=== PATIENT | male | born 1940 | race Caucasian/White ===

== ENCOUNTER 2017-12-21 02:35 | Emergency (ER) | payer MEDICARE ==
[2017-12-21] MEDS ORDERED: ONDANSETRON 4 MG/2 ML VIAL ONE (02:59)
[2017-12-21] MEDS ORDERED: MORPHINE 4 MG/ML SYR ONE (02:59)
[2017-12-21 04:06] LABS: Absolute Lymphocytes (CBC) 1.4 K/uL (0.7-4.9); Absolute Monocytes 0.4 K/uL (0.1-1.3); Absolute Neutrophil 3.4 K/uL (1.8-8.0); Basophils % 0.5 % (0-1.3); Hematocrit 41.5 % (39.6-49.0); Lymphocytes % 26.5 % (15.3-44.8); MCH 29.5 pg (27.0-35.0); MCV 89.3 fL (80-100); MPV 9.3 fL (7.6-11.3); Monocytes % 7.1 % (3.3-12.3); RBC Red Blood Cell Count 4.65 M/uL (4.33-5.43)
[2017-12-21 04:45] LABS: Potassium 4.4 mEq/L (3.6-5.0)
[2017-12-21 04:52] LABS: Albumin 4.3 g/dL (3.2-5.5); Bilirubin Direct 0.1 mg/dL (0-0.2); Bilirubin Total 0.7 mg/dL (0.3-1.2); Protein, Total 6.7 g/dL (6.0-8.3)
[2017-12-21 04:55] LABS: Urine Blood 2+ (NEG); Urine Glucose NEGATIVE (NEG); Urine Protein TRACE (NEG); Urine Specific Gravity >1.030 (1.005-1.030)
--- NOTE | 2017-12-21 05:14 | ER ---
Nurse's Notes [facility] Name: Qamar Campbell Age: 77 yrs Sex: Male : 1940 Arrival Date: 12/21/2017 Time: 02:36 Bed 6 Private MD: Diagnosis: Low back pain;Hematuria Presentation: 12/21 02:32 Presenting complaint: Patient states: Around 1500 pt reports he was working in his shop ea and his right side of his lower back started hurting. Transition of care: patient was not received from another setting of care. Onset of symptoms was December 21, 2017. Care prior to arrival: None. 02:32 Method Of Arrival: EMS: [facility] ea 02:32 Acuity: ELISSA 3 ea Triage Assessment: 02:43 General: Appears uncomfortable, Behavior is calm, cooperative, appropriate for age, pt ea reports he had a prostate biopsy in [place] about three days ago and was told everything was fine. . Pain: Complains of pain in right low back Pain currently is 9 out of 10 on a pain scale. Quality of pain is described as aching, Pain began 1500 yesterday Is continuous. Neuro: Level of Consciousness is awake, alert, obeys commands, Oriented to person, place, time. Cardiovascular: Patient's skin is warm and dry. Respiratory: Airway is patent Respiratory effort is even, unlabored, Respiratory pattern is regular, symmetrical, Breath sounds are clear bilaterally. GI: No signs and/or symptoms were reported involving the gastrointestinal system. : Denies burning with urination, pain. Derm: Skin is pink, warm \T\ dry. Historical: - Allergies: 02:43 No Known Allergies; ea - Home Meds: 02:43 Metformin Oral [Active]; Alprazolam Oral [Active]; Hydrocodone-Acetaminophen Oral ea [Active]; - Immunization history:: Adult Immunizations up to date. - Social history:: Smoking status: Patient/guardian denies using tobacco. Screenin:48 Abuse screen: Denies threats or abuse. Nutritional screening: No deficits noted. ea Tuberculosis screening: No symptoms or risk factors identified. Fall Risk None identified. Assessment: 03:17 Reassessment: Patient and/or family updated on plan of care and expected duration. Pain ea level reassessed. Patient is alert, oriented x 3, equal unlabored respirations, skin warm/dry/pink. 03:53 Reassessment: Patient and/or family updated on plan of care and expected duration. Pain ea level reassessed. Patient is alert, oriented x 3, equal unlabored respirations, skin warm/dry/pink. Returned from radiology. 04:53 Reassessment: Patient and/or family updated on plan of care and expected duration. Pain ea level reassessed. Patient is alert, oriented x 3, equal unlabored respirations, skin warm/dry/pink. 05:55 Reassessment: Pt resting with eyes closed, respirations even and unlabored, chest ea expansions even and symmetrical. No s/s of pain or discomfort noted at this time. 06:28 Reassessment: Patient and/or family updated on plan of care and expected duration. Pain ea level reassessed. Patient is alert, oriented x 3, equal unlabored respirations, skin warm/dry/pink. Discharge instructions given to patient, verbalized the understanding of instruction. Vital Signs: 02:32 BP 171 / 101; Pulse 71; Resp 18; Temp 97.6; Pulse Ox 99% on R/A; Weight 83.01 kg; ea Height 5 ft. 7 in. (170.18 cm); Pain 9/10; 03:15 BP 150 / 80; Pulse 61; Resp 18; Pulse Ox 98% on R/A; ea 04:54 BP 131 / 75; Pulse 70; Resp 18 S; Pulse Ox 98% on R/A; ea 05:55 BP 133 / 74; Pulse 68; Resp 20 S; Pulse Ox 97% on R/A; ea 06:33 BP 115 / 80; Pulse 73; Resp 20 S; Pulse Ox 98% on R/A; ea 02:32 Body Mass Index 28.66 (83.01 kg, 170.18 cm) ea ED Course: 02:36 Patient arrived in ED. ea 02:40 Triage completed. ea 02:41 Lukas Strickland MD is Attending Physician. tw4 02:48 Arm band placed on right wrist. ea 02:48 Patient has correct armband on for positive identification. Bed in low position. Call ea light in reach. Side rails up X2. 02:56 Tennille Diaz, ERLINDA is Primary Nurse. ea 03:05 Inserted saline lock: 20 gauge in right antecubital area, using aseptic technique. ea Blood collected. 04:08 CT Abd/Pelvis - Without Cont In Process Unspecified. EDMS 05:11 Lukas Strickland MD is Referral Physician. tw4 06:00 No provider procedures requiring assistance completed. ea 06:20 IV discontinued, intact, bleeding controlled, No redness/swelling at site. Pressure ea dressing applied. Administered Medications: 03:14 Drug: morphine 2 mg Route: IVP; Site: right antecubital; ea 04:10 Follow up: Response: No adverse reaction; Pain is decreased ea 03:14 Drug: Zofran 4 mg Route: IVP; Site: right antecubital; ea 04:10 Follow up: Response: No adverse reaction ea Outcome: 05:14 Discharge ordered by . tw4 06:29 Discharged to [facility], patient reports neighbor on way to pick him up. ea 06:29 Condition: improved 06:29 Discharge instructions given to patient, Instructed on discharge instructions, follow up and referral plans. medication usage, Demonstrated understanding of instructions, follow-up care, medications, Prescriptions given X 1. 06:37 Patient left the ED. ea Signatures: Dispatcher [employer] EDDC Tennille Diza, RN RN Lukas Abreu MD MD tw4
--- NOTE | 2017-12-21 05:14 | EDPHYS ---
Physician Documentation [facility] Name: Qamar Campbell Age: 77 yrs Sex: Male : 1940 Arrival Date: 12/21/2017 Time: 02:36 Bed 6 Private MD: ED Physician Lukas Strickland Historical: - Allergies: 12/21 02:43 No Known Allergies; ea - Home Meds: 02:43 Metformin Oral [Active]; Alprazolam Oral [Active]; Hydrocodone-Acetaminophen Oral ea [Active]; - Immunization history:: Adult Immunizations up to date. - Social history:: Smoking status: Patient/guardian denies using tobacco. Vital Signs: 02:32 BP 171 / 101; Pulse 71; Resp 18; Temp 97.6; Pulse Ox 99% on R/A; Weight 83.01 kg; ea Height 5 ft. 7 in. (170.18 cm); Pain 9/10; 03:15 BP 150 / 80; Pulse 61; Resp 18; Pulse Ox 98% on R/A; ea 04:54 BP 131 / 75; Pulse 70; Resp 18 S; Pulse Ox 98% on R/A; ea 05:55 BP 133 / 74; Pulse 68; Resp 20 S; Pulse Ox 97% on R/A; ea 06:33 BP 115 / 80; Pulse 73; Resp 20 S; Pulse Ox 98% on R/A; ea 02:32 Body Mass Index 28.66 (83.01 kg, 170.18 cm) ea MDM: 02:41 Patient medically screened. 12/21 02:56 Order name: Amylase, Serum; Complete Time: 05:02 12/21 05:02 Interpretation: Normal except: VIDA 102. 12/21 02:56 Order name: Basic Metabolic Panel; Complete Time: 05:02 12/21 05:02 Interpretation: GLUC 134; BUN 23; CRE 1.63; GFR 41. 12/21 02:56 Order name: CBC with Diff; Complete Time: 04:08 12/21 04:08 Interpretation: Within normal limits. 12/21 02:56 Order name: Creatinine for Radiology; Complete Time: 05:02 12/21 02:56 Order name: Hepatic Function; Complete Time: 05:02 12/21 05:03 Interpretation: Within normal limits. tw4 12/21 02:56 Order name: Lipase; Complete Time: 05:02 tw4 12/21 02:56 Order name: Urine Microscopic Only tw4 12/21 02:56 Order name: IV Saline Lock; Complete Time: 03:14 tw4 12/21 02:56 Order name: Labs collected and sent; Complete Time: 03:14 tw4 12/21 02:56 Order name: Urine Dipstick-Ancillary (obtain specimen); Complete Time: 04:33 tw4 12/21 03:24 Order name: CT Abd/Pelvis - Without Cont tw4 12/21 04:28 Order name: Urine Dipstick--Ancillary (enter results); Complete Time: 05:02 2 12/21 05:03 Interpretation: Normal except: UBLD 2+; USPGR >1.030. tw4 Administered Medications: 03:14 Drug: morphine 2 mg Route: IVP; Site: right antecubital; ea 04:10 Follow up: Response: No adverse reaction; Pain is decreased ea 03:14 Drug: Zofran 4 mg Route: IVP; Site: right antecubital; ea 04:10 Follow up: Response: No adverse reaction ea Disposition: 12/21/17 05:14 Discharged to Home. Impression: Low back pain, Hematuria. - Condition is Stable. - Discharge Instructions: Back Pain, Adult, Hematuria, Adult, Pain Without a Known Cause, Back Pain, Adult, [id number]. - Prescriptions for Ibuprofen 800 mg Oral Tablet - take 1 tablet by ORAL route every 12 hours As needed take with food; 20 tablet. - Medication Reconciliation Form, Thank You Letter, Antibiotic Education, Prescription Opioid Use form. - Follow up: Lukas Strickland MD; When: As needed; Reason: If symptoms return, Recheck today's complaints, Continuance of care, Re-evaluation by your physician. - Problem is new. - Symptoms have improved. Addendum: 01/12/2018 11:34 Addendum: Pt is a 77 year old male that states he was at work when his back began t w4 hurting. pt states that the left side of his back is in pain. Possible injury includes lifting bending turning. Denies radiation of pain. Addendum: ROS: Constitutional: negative for fever, chills : negative for dysuria frequency Back:positive for pain and injury. . Addendum: PE: General: well developed well nourished male in NAD HEENT: PERRLA, EOMI CV: RRR, nl S1, S2 Resp: CTAB, no resp distress Abdomen: soft ND,NT back: tenderness to palpation of left paraspinal tenderness, muscle spasm Neuro: alert and oriented times three CB grossly intact, gait normal. 11:42 Addendum: ED course: workup in th ED negative for cause of pts abdominal pain. t w4 Signatures: Dispatcher [employer] EDTennille Henderson, ERLINDA RN Lukas Abreu MD MD tw4
[2017-12-21 05:49] LABS: Urine Bacteria <20 /HPF (NONE SEEN); Urine Culture Reflex Order NOT NEEDED
--- NOTE | 2017-12-21 08:19 | RAD REPORT ---
EXAM DESCRIPTION: CT - Abdomen Pelvis Wo Contrast - 12/21/2017 5:54 am CLINICAL HISTORY: Right-sided abdomen pain, right-sided flank pain A preliminary written report was provided at the time of the study, and the report was reviewed prio r to final dictation. COMPARISON: None. TECHNIQUE: Axial [address] imaging of the abdomen and pelvis was performed without IV contrast. No IV contrast was given because of allergy, abnormal renal function, patient refusal or physician re quest. No oral contrast given. All CT scans are performed using dose optimization technique as appropriate and may include automated exposure control or mA/KV adjustment according to patient size. FINDINGS: No infiltrate, pneumothorax or pleural effusion. There is a trace amount of atelectasis pr esent. Two small abutting nodules in the lateral posterior left lung base are 3 mm or less in size. The liver, spleen and pancreas show no suspicious findings on non-contrast imaging. Liver attenuation is borderline fatty infiltrated. No gallbladder or biliary tree abnormality. Gallstones can be occul t. No evidence for an active gallbladder process. No hydronephrosis or suspicious renal mass. No significant adrenal finding. Isodense renal masses an d pyelonephritis cannot be excluded in the absence of IV contrast. Urinary bladder is mostly contract ed. This limits assessment. No bladder calculus seen. Prostate gland is prominent projecting into the bladder base. No rectal wall or pelvic side wall invasion. No stranding or edema in the adjacent fat . Prostate calcifications are present. No dilated bowel loops or bowel wall thickening. Patient has a moderately large stool volume in the r ight-side of the colon along with extensive sigmoid diverticulosis. No colon mass, diverticulitis or other active process. Patient has bilateral fat filled inguinal hernias. A normal appendix extends in to the origin of the right inguinal hernia. No congestion or edema of the fat. A small fat only umbil ical hernia is also present. No bulky lymphadenopathy or mass. No free air, free fluid or inflammator y stranding. Disc and bony degenerative changes are present. Vascular calcifications are seen. Vascular assessment is limited in the absence of IV contrast. IMPRESSION: No obstruction, free air or other surgically emergent finding. Moderately large right-side stool volume with sigmoid extensive diverticulosis. No diverticulitis or acute GI process. Umbilical and bilateral inguinal hernias. A normal appendix extends into the origin of the right ingu inal hernia. No active process seen. Enlarged prostate with no edema or congestion in the adjacent fat. Full assessment is limited is the absence of IV contrast.
== END 2017-12-21 06:37 | disposition home or self-care (01) ==
LOC: ER 02:35
DX: R31.9 Hematuria, unspecified (principal)
CPT/HCPCS: 36415; 74176; 80048; 80076; 82150; 83690; 85025; 96374; 96375; 99284; J2405; 81003; 81015

== ENCOUNTER 2018-09-22 09:42 | Emergency (ER) | payer MEDICARE ==
--- NOTE | 2018-09-22 10:21 | RAD REPORT ---
EXAM DESCRIPTION: CT - Head C Spine Cap Wo Con - 09/22/2018 10:04 am CLINICAL HISTORY: Trauma, head and neck injury. Chest, abdomen and pelvis pain. fall injury from ladder;Pain COMPARISON: Abdomen Pelvis Wo Contrast dated 12/21/2017 TECHNIQUE: CT head without contrast. CT cervical spine without contrast with coronal and sagittal reformatted images. CT chest, abdomen and pelvis without contrast with coronal and sagittal reformatted images of the spi ne. All CT scans are performed using dose optimization technique as appropriate and may include automated exposure control or mA/KV adjustment according to patient size. FINDINGS: CT HEAD WITHOUT CONTRAST: No intracranial hemorrhage, hydrocephalus or extra-axial fluid collection. Mild generalized brain atr ophy. No areas of brain edema or midline shift. The paranasal sinuses and mastoids are clear. The calvarium is intact. CT CERVICAL SPINE WITHOUT CONTRAST: No fracture or subluxation. Moderate lower cervical spondylosis is seen. The prevertebral soft tissue s are normal in thickness. CT CHEST, ABDOMEN, PELVIS WITHOUT CONTRAST: NOTE: Lack of contrast is a significant limitation in the assessment of trauma related findings. Spec ifically, solid organ, vascular and bowel evaluation is significantly limited. The lungs are mildly emphysematous but clear of acute infiltrate.No pulmonary contusion finding seen. No pneumothorax or pericardial/pleural fluid. No evidence of intra-abdominal visceral injury, free fluid or free air is seen within the above detai led limitations. Small umbilical hernia containing fat. Bilateral inguinal hernias containing fat, la rger on the right. Moderate lumbar degenerative changes. No acute fractures are demonstrated. IMPRESSION: Negative for acute traumatic findings within the above detailed limitations.
--- NOTE | 2018-09-22 10:26 | RAD REPORT ---
EXAM DESCRIPTION: CT - CTFB CLINICAL HISTORY: TRAUMA Fall, facial trauma and pain COMPARISON: No comparisons TECHNIQUE: Axial 2 mm thick images of the face were obtained with sagittal and coronal reconstructio n images. All CT scans are performed using dose optimization technique as appropriate and may include automated exposure control or mA/KV adjustment according to patient size. FINDINGS: There is evidence of previous left-sided zygomaticomaxillary fracture with chronic deformi ty. Acute facial bone fracture is not seen on today's study.The left parotid gland appears enlarged c ompared to the right with hyperdense tissue noted in the superior anterior portion of the the left pa rotid gland. This could represent localized hematoma. The globes and orbital contents are grossly unremarkable.The paranasal sinuses and mastoids are clear . IMPRESSION: Negative for facial bone fracture. Enlargement of the left parotid gland relative to the right with hyperdensity noted, potentially rela angelika to localized hematoma.
[2018-09-22 10:41] LABS: Potassium 4.6 mmol/L (3.5-5.1)
[2018-09-22 10:43] LABS: Absolute Lymphocytes (CBC) 1.9 K/uL (0.7-4.9); Absolute Monocytes 0.4 K/uL (0.1-1.3); Absolute Neutrophil 3.6 K/uL (1.8-8.0); Basophils % 0.7 % (0-1.3); Eosinophils % 0.9 % (0-4.4); Lymphocytes % 32.2 % (15.3-44.8); MPV 8.8 fL (7.6-11.3); Monocytes % 6.3 % (3.3-12.3); RBC Red Blood Cell Count 4.97 M/uL (4.33-5.43)
--- NOTE | 2018-09-22 10:45 | RAD REPORT ---
EXAM DESCRIPTION: RAD - Wrist Left 3 View - 09/22/2018 10:13 am CLINICAL HISTORY: PAIN Pain COMPARISON: No comparisons FINDINGS: No acute fracture or dislocation of the left wrist is seen. Mild soft tissue swelling is p resent. Mild radiocarpal arthritic changes.
--- NOTE | 2018-09-22 11:41 | ER ---
Nurse's Notes [facility] Name: Qamar Campbell Age: 78 yrs Sex: Male : 1940 Arrival Date: 09/22/2018 Time: 09:46 Bed 4 Private MD: Diagnosis: Contusion of left wrist;Avulsion of skin ;Acute pain due to trauma Presentation: 09/22 09:40 Presenting complaint: EMS states: Working on the roof and fell off the ladder about 10 jl7 ft up, initially wanted to refuse transport but was disoriented to what day it was. Skin tears to right arm. Transition of care: patient was not received from another setting of care. Onset of symptoms was September 22, 2018. Risk Assessment: Do you want to hurt yourself or someone else? Patient reports no desire to harm self or others. Initial Sepsis Screen: Does the patient meet any 2 criteria? No. Patient's initial sepsis screen is negative. Does the patient have a suspected source of infection? No. Patient's initial sepsis screen is negative. Care prior to arrival: None. 09:40 Method Of Arrival: EMS: [facility] 09:40 Acuity: ELISSA 2 jl7 09:40 Mechanism of Injury: Fall from ladder approximately 10 feet. Trauma event details: jl7 Injury occurred in the [facility], Injury occurred: at home. Injury occurred: September 22, 2018. Trauma Activation: Alert Physician: ED Physician; Name: Mahamed; Notified At: 09:36; Arrived At: 09:36 Physician: General Surgeon; Name: ; Notified At: 09:36; Arrived At: Physician: Radiology; Name: Syeda; Notified At: 09:36; Arrived At: Physician: Respiratory; Name: ; Notified At: 09:36; Arrived At: Physician: Lab; Name: ; Notified At: 09:36; Arrived At: Historical: - Allergies: 10:07 No Known Allergies; jl7 - Home Meds: 10:51 Alprazolam Oral [Active]; Metformin Oral [Active]; jl7 - PMHx: 10:51 Diabetes - NIDDM; Hypertension; jl7 - Immunization history: Last tetanus immunization: < 10 years ago. - Social history:: Smoking status: Patient/guardian denies using tobacco. - Ebola Screening: : No symptoms or risks identified at this time. Screenin:40 Abuse screen: Denies threats or abuse. Denies injuries from another. Tuberculosis jl7 screening: No symptoms or risk factors identified. 09:50 Nutritional screening: No deficits noted. Fall Risk IV access (20 points). Total Solomon jl7 Fall Scale indicates No Risk (0-24 pts). Primary Survey: 09:45 NO uncontrolled hemorrhage observed. Breathing/Chest: Respiratory pattern: regular, jl7 Respiratory effort: spontaneous, unlabored, Breath sounds: clear, Chest inspection: symmetrical rise and fall of the chest. Circulation: Heart tones present. Pulses: palpable right radial artery and left radial artery. Skin color: pink, Skin temperature: warm. Disability Alert. Exposure/Environment: Obvious injury(ies) are noted at this time: skin tears noted to right arm, no hemorrhage, bandage with gauze and Kerlix. 10:00 Reassessment Breathing/Chest Respiratory pattern Regular Respiratory effort Spontaneous jl7 Unlabored Breath sounds Clear Chest inspection Symmetrical. Assessment: 09:40 General: Appears in no apparent distress. uncomfortable, Behavior is calm, cooperative, jl7 appropriate for age. Pain: Complains of pain in c/o mild pain to left wrist and chest when taking a deep breath in. Neuro: Level of Consciousness is awake, alert, obeys commands, Oriented to person, place, time, situation. EENT: Ear canal clear on left ear and right ear dried blood noted to left outer ear. Cardiovascular: Heart tones S1 S2 present Patient's skin is warm and dry. Chest pain is described as mild, quality is "sore" is located in chest wall. Respiratory: Airway is patent Respiratory effort is even, unlabored, Respiratory pattern is regular, symmetrical, Breath sounds are clear bilaterally. Denies shortness of breath. GI: No signs and/or symptoms were reported involving the gastrointestinal system. : No signs and/or symptoms were reported regarding the genitourinary system. Derm: Skin is pink, warm \\T\\ dry. Musculoskeletal: Range of motion: intact in all extremities. 10:40 Reassessment: Patient appears in no apparent distress at this time. No changes from jl7 previously documented assessment. Patient and/or family updated on plan of care and expected duration. Pain level reassessed. Patient is alert, oriented x 3, equal unlabored respirations, skin warm/dry/pink. 11:30 Reassessment: Patient appears in no apparent distress at this time. Patient and/or jl7 family updated on plan of care and expected duration. Pain level reassessed. Patient is alert, oriented x 3, equal unlabored respirations, skin warm/dry/pink. Vital Signs: 09:40 BP 162 / 96; Pulse 82; Resp 16 S; Temp 98.5(O); Pulse Ox 96% on R/A; Pain 3/10; jl7 10:00 BP 161 / 89; Pulse 79; Resp 16 S; Pulse Ox 96% on R/A; jl7 11:00 BP 140 / 89; Pulse 75; Resp 16 S; Pulse Ox 96% on R/A; jl7 12:07 BP 139 / 87; Pulse 77; Resp 16 S; Pulse Ox 96% on R/A; Pain 0/10; jl7 Champion Coma Score: 09:40 Eye Response: spontaneous(4). Verbal Response: oriented(5). Motor Response: obeys jl7 commands(6). Total: 15. Trauma Score (Adult): 09:40 Eye Response: spontaneous(1); Verbal Response: oriented(1); Motor Response: obeys jl7 commands(2); Systolic BP: > 89 mm Hg(4); Respiratory Rate: 10 to 29 per min(4); Billie Score: 15; Trauma Score: 12 10:00 Eye Response: spontaneous(1); Verbal Response: oriented(1); Motor Response: obeys jl7 commands(2); Systolic BP: > 89 mm Hg(4); Respiratory Rate: 10 to 29 per min(4); Champion Score: 15; Trauma Score: 12 11:00 Eye Response: spontaneous(1); Verbal Response: oriented(1); Motor Response: obeys jl7 commands(2); Systolic BP: > 89 mm Hg(4); Respiratory Rate: 10 to 29 per min(4); Billie Score: 15; Trauma Score: 12 12:08 Eye Response: spontaneous(1); Verbal Response: oriented(1); Motor Response: obeys jl7 commands(2); Systolic BP: > 89 mm Hg(4); Respiratory Rate: 10 to 29 per min(4); Champion Score: 15; Trauma Score: 12 ED Course: 09:40 Patient has correct armband on for positive identification. Placed in gown. Bed in low jl7 position. Call light in reach. Side rails up X2. 09:40 Patient maintains SpO2 saturation greater than 95% on room air. Thermoregulation: warm jl7 blanket given to patient. 09:46 Patient arrived in ED. iw 09:47 Ray Farrar PA is PHCP. jr8 09:47 Christophe Irby MD is Attending Physician. jr8 09:50 Initial lab(s) drawn, by il, sent to lab. Inserted saline lock: 20 gauge in left jl7 antecubital area, using aseptic technique. Blood collected. 09:53 Iwona Pereira, ERLINDA is Primary Nurse. jl7 09:57 Triage completed. jl7 09:57 CT completed. Patient tolerated procedure well. Patient moved to CT via stretcher. Patient moved back from CT. 10:06 CT Facial Bones W/O Con In Process Unspecified. EDMS 10:06 CT Traumagram (Head C Spine CAP wo con) In Process Unspecified. EDMS 10:06 Patient moved to radiology via stretcher. jb2 10:07 Arm band placed on right wrist. jl7 10:12 X-ray completed. Patient tolerated procedure well. Patient moved back from radiology. sw 10:13 XRAY Wrist LEFT 3 view In Process Unspecified. EDMS 10:25 EKG done, by pile driving technician. reviewed by Ray REZA. at1 12:08 No provider procedures requiring assistance completed. IV discontinued, intact, jl7 bleeding controlled, No redness/swelling at site. Pressure dressing applied. Administered Medications: No medications were administered Intake: 12:10 PO: 0ml; Total: 0ml. jl7 Output: 12:10 Urine: 0ml; Total: 0ml. jl7 Outcome: 11:40 Discharge ordered by . jr8 12:09 Condition: stable jl7 12:09 Discharge instructions given to patient, friend, Instructed on discharge instructions, follow up and referral plans. Demonstrated understanding of instructions, follow-up care. 12:10 Discharged to home ambulatory. jl7 12:11 Patient's length of stay was not longer than 2 hours. jl7 12:12 Patient left the ED. jl7 Signatures: Dispatcher [employer] EDMS Ebony Imerkathryn colón2 Arminda Bustillo Irene, RN RN Ray Aggarwal PA PA jr8 Deidra [place], riding silks custodian EKG Tat1 Syeda Benavides Jahala, RN RN jl7 Corrections: (The following items were deleted from the chart) 12: 09:50 Discharged to home ambulatory, [place] [id number] 12: 09:50 Condition: stable [place] [address] 12:06 21:50 Discharge instructions given to patient, friend, Instructed on discharge jl7 instructions, follow up and referral plans. Demonstrated understanding of instructions, follow-up care, [facility]
--- NOTE | 2018-09-22 11:41 | EDPHYS ---
Physician Documentation [facility] Name: Qamar Campbell Age: 78 yrs Sex: Male : 1940 Arrival Date: 09/22/2018 Time: 09:46 Bed 4 Private MD: ED Physician Christophe Irby HPI: 09/22 11:16 This 78 yrs old Male presents to ER via EMS with complaints of Fall Injury. jr8 11:16 Details of fall: The patient fell from a height, from a ladder, approximately 10 feet. jr8 Onset: The symptoms/episode began/occurred acutely, today. Associated injuries: The patient sustained injury to the head, injury to the chest, right arm, left wrist. Severity of symptoms: At their worst the symptoms were moderate. The patient has not experienced similar symptoms in the past. The patient has not recently seen a physician. EMS stated that patient initially was confused. Unknown LOC. Patient now A\T\O x 4. Historical: - Allergies: 10:07 No Known Allergies; jl7 - Home Meds: 10:51 Alprazolam Oral [Active]; Metformin Oral [Active]; jl7 - PMHx: 10:51 Diabetes - NIDDM; Hypertension; jl7 - Immunization history: Last tetanus immunization: < 10 years ago. - Social history:: Smoking status: Patient/guardian denies using tobacco. - Ebola Screening: : No symptoms or risks identified at this time. ROS: 11:16 Eyes: Negative for injury, pain, redness, and discharge, ENT: Negative for injury, jr8 pain, and discharge, Neck: Negative for injury, pain, and swelling, Cardiovascular: Negative for palpitations, and edema. Chest pain present Respiratory: Negative for shortness of breath, cough, wheezing, and pleuritic chest pain, Abdomen/GI: Negative for abdominal pain, nausea, vomiting, diarrhea, and constipation, Back: Negative for injury and pain, MS/Extremity: Negative for injury and deformity, Neuro: Negative for headache, weakness, numbness, tingling, and seizure. 11:16 Skin: Positive for avulsion, of the right arm. Exam: 11:16 Eyes: Pupils equal round and reactive to light, extra-ocular motions intact. Lids and jr8 lashes normal. Conjunctiva and sclera are non-icteric and not injected. Cornea within normal limits. Periorbital areas with no swelling, redness, or edema. ENT: Nares patent. No nasal discharge, no septal abnormalities noted. Tympanic membranes are normal and external auditory canals are clear. Oropharynx with no redness, swelling, or masses, exudates, or evidence of obstruction, uvula midline. Mucous membranes moist. Neck: Trachea midline, no thyromegaly or masses palpated, and no cervical lymphadenopathy. Supple, full range of motion without nuchal rigidity, or vertebral point tenderness. No Meningismus. Chest/axilla: Normal chest wall appearance and motion. Nontender with no deformity. No lesions are appreciated. Cardiovascular: Regular rate and rhythm with a normal S1 and S2. No gallops, murmurs, or rubs. Normal PMI, no JVD. No pulse deficits. Respiratory: Lungs have equal breath sounds bilaterally, clear to auscultation and percussion. No rales, rhonchi or wheezes noted. No increased work of breathing, no retractions or nasal flaring. Abdomen/GI: Soft, non-tender, with normal bowel sounds. No distension or tympany. No guarding or rebound. No evidence of tenderness throughout. Back: No spinal tenderness. No costovertebral tenderness. Full range of motion. MS/ Extremity: Pulses equal, no cyanosis. Neurovascular intact. Full, normal range of motion. Neuro: Awake and alert, GCS 15, oriented to person, place, time, and situation. Cranial nerves II-XII grossly intact. Motor strength 5/5 in all extremities. Sensory grossly intact. Cerebellar exam normal. Normal gait. 11:16 Head/face: Noted is ecchymosis, that is mild, of the left zygomatic area, swelling, that is mild, of the left zygomatic area. 11:16 Skin: Superficial avulsion of skin noted to right forearm and biceps region. Vital Signs: 09:40 BP 162 / 96; Pulse 82; Resp 16 S; Temp 98.5(O); Pulse Ox 96% on R/A; Pain 3/10; jl7 10:00 BP 161 / 89; Pulse 79; Resp 16 S; Pulse Ox 96% on R/A; jl7 11:00 BP 140 / 89; Pulse 75; Resp 16 S; Pulse Ox 96% on R/A; jl7 12:07 BP 139 / 87; Pulse 77; Resp 16 S; Pulse Ox 96% on R/A; Pain 0/10; jl7 Hammon Coma Score: 09:40 Eye Response: spontaneous(4). Verbal Response: oriented(5). Motor Response: obeys jl7 commands(6). Total: 15. Trauma Score (Adult): 09:40 Eye Response: spontaneous(1); Verbal Response: oriented(1); Motor Response: obeys jl7 commands(2); Systolic BP: > 89 mm Hg(4); Respiratory Rate: 10 to 29 per min(4); Billie Score: 15; Trauma Score: 12 10:00 Eye Response: spontaneous(1); Verbal Response: oriented(1); Motor Response: obeys jl7 commands(2); Systolic BP: > 89 mm Hg(4); Respiratory Rate: 10 to 29 per min(4); Hammon Score: 15; Trauma Score: 12 11:00 Eye Response: spontaneous(1); Verbal Response: oriented(1); Motor Response: obeys jl7 commands(2); Systolic BP: > 89 mm Hg(4); Respiratory Rate: 10 to 29 per min(4); Hammon Score: 15; Trauma Score: 12 12:08 Eye Response: spontaneous(1); Verbal Response: oriented(1); Motor Response: obeys jl7 commands(2); Systolic BP: > 89 mm Hg(4); Respiratory Rate: 10 to 29 per min(4); Hammon Score: 15; Trauma Score: 12 MDM: 09:47 Patient medically screened. [facility] 11:31 Data reviewed: vital signs, nurses notes, lab test result(s), radiologic studies, CT jr8 scan, plain films, and as a result, I will discharge patient. Data interpreted: Pulse oximetry: on room air is 96 %. Interpretation: normal. Counseling: I had a detailed discussion with the patient and/or guardian regarding: the historical points, exam findings, and any diagnostic results supporting the discharge/admit diagnosis, lab results, radiology results, the need for outpatient follow up, a family practitioner, to return to the emergency department if symptoms worsen or persist or if there are any questions or concerns that arise at home. ED course: Patient remains hemodynamically stable. No acute traumatic findings. Patient up to date on tetanus. Neurologically intact with no memory loss, confusion, or disorientation. No headache, nausea, visual deficits. Will d/c home to f/u with PCP within 24 hours. Has friend who will be staying with him as well . 09/22 09:47 Order name: Basic Metabolic Panel; Complete Time: 10:49 09/22 09:47 Order name: CBC with Diff; Complete Time: 10:49 09/22 09:47 Order name: Creatinine for Radiology; Complete Time: 10:49 09/22 09:47 Order name: Type And Screen; Complete Time: 11:16 09/22 09:47 Order name: XRAY Wrist LEFT 3 view; Complete Time: 10:49 09/22 11:38 Order name: ABO/RH no charge; Complete Time: 11:38 EDDE 09/22 09:47 Order name: Labs collected and sent; Complete Time: 10:23 09/22 09:48 Order name: CT Facial Bones W/O Con; Complete Time: 10:49 09/22 09:48 Order name: EKG - Nurse/Tech; Complete Time: 10:23 09/22 09:48 Order name: EKG; Complete Time: 09:48 09/22 09:49 Order name: CT Traumagram (Head C Spine CAP wo con); Complete Time: :49 Administered Medications: No medications were administered Disposition: 12:49 Co-signature as Attending Physician, Christophe Irby MD I agree with the assessment and landon plan of care. Disposition: 09/22/18 11:40 Discharged to Home. Impression: Contusion of left wrist, Avulsion of skin , Acute pain due to trauma. - Condition is Stable. - Discharge Instructions: Contusion, Concussion, Adult, Head Injury, Adult, Muscle Pain, Adult, Wrist Pain. - Medication Reconciliation Form, Thank You Letter, Antibiotic Education, Prescription Opioid Use form. - Follow up: Private Physician; When: 24 Hours; Reason: Wound Recheck, Recheck today's complaints, Continuance of care, Re-evaluation by your physician. - Problem is new. - Symptoms have improved. Signatures: Dispatcher [employer] Christophe Lozano MD MD cha Roszak, Josh, PA PA jr8 Iwona Pereira RN RN jl7 Corrections: (The following items were deleted from the chart) 11:39 11:31 ED course: Patient remains hemodynamically stable. No acute traumatic findings. jr8 Patient up to date on tetanus. Neurologically intact with no memory loss, confusion, or disorientation. No headache, nausea, visual deficits. Will d/c home to f/u with PCP within 24 hours . jr8 12:12 11:40 09/22/2018 11:40 Discharged to Home. Impression: Contusion of left wrist; jl7 Avulsion of skin ; Acute pain due to trauma. Condition is Stable. Forms are Medication Reconciliation Form, Thank You Letter, Antibiotic Education, Prescription Opioid Use. Follow up: Private Physician; When: 24 Hours; Reason: Wound Recheck, Recheck today's complaints, Continuance of care, Re-evaluation by your physician. Problem is new. Symptoms have improved. jr8
--- NOTE | 2018-09-22 12:03 | EKG ---
Test Date: 2018-09-22 Test Time: 10:19:03 Circulation Analyst: JEAN MEASUREMENT RESULTS: Intervals: Rate: 74 TN: 164 QRSD: 112 QT: 384 QTc: 426 [place]: P: 65 TN: 164 QRS: 42 T: 68 INTERPRETIVE STATEMENTS: Normal sinus rhythm Normal ECG No previous ECG available for comparison Electronically Signed On 09-22-18 12:02:40 EMOTIONALLY IMPAIRED TEACHER by Yevgeniy Miller
== END 2018-09-22 12:12 | disposition home or self-care (01) ==
LOC: ER 09:42
DX: S60.212A Contusion of left wrist, initial encounter (principal); S51.801A Unspecified open wound of right forearm, initial encounter; S41.101A Unspecified open wound of right upper arm, initial encounter; W11.XXXA Fall on and from ladder, initial encounter; M47.812 Spondylosis without myelopathy or radiculopathy, cervical region; K40.20 Bilateral inguinal hernia, without obstruction or gangrene, not specified as recurrent; K42.9 Umbilical hernia without obstruction or gangrene; E11.9 Type 2 diabetes mellitus without complications; I10 Essential (primary) hypertension; Z79.84 Long term (current) use of oral hypoglycemic drugs; Z79.899 Other long term (current) drug therapy
CPT/HCPCS: 36415; 70450; 70486; 71250; 72125; 76377; 80048; 85025; 86850; 86900; 86901; 93005; 99285

== ENCOUNTER 2021-09-15 07:08 | Day surgery (SDC) | payer MEDICARE ==
[2021-09-15] MEDS ORDERED: NA CHLORIDE 0.9% 1,000 ML ONE (08:02)
--- NOTE | 2021-09-15 08:09 | RAD REPORT ---
EXAM DESCRIPTION: RAD - Chest Pa And Lat (2 Views) - 09/15/2021 7:55 am CLINICAL HISTORY: PRE-OP COMPARISON: No comparisons FINDINGS: Lines: None. Lungs: No evidence of edema or pneumonia. Pleural: No significant pleural effusions or pneumothorax. Cardiac: The heart size is within normal limits. Bones: No acute fractures. Other: Surgical clips in the left axilla. IMPRESSION: No acute cardiopulmonary disease.
[2021-09-15 08:11] LABS: Absolute Lymphocytes (CBC) 1.4 K/uL (0.7-4.9); Hematocrit 45.5 % (39.6-49.0); Lymphocytes % 24.4 % (15.3-44.8); MPV 8.4 fL (7.6-11.3)
[2021-09-15] MEDS ORDERED: propofoL 200 MG/20 ML VIAL IV ONE (08:17)
[2021-09-15] MEDS ORDERED: MIDAZOLAM HCL 2 MG/2 ML INJ ONE (08:17)
[2021-09-15] MEDS ORDERED: FENTANYL CITR 100 MCG/2 ML ONE (08:17)
[2021-09-15] MEDS ORDERED: LIDOCAINE 1% MPF 5 ML VIAL ONE (08:17)
[2021-09-15] MEDS: CEFAZOLIN/NS 1gm 1 GM/50 ML BAG ONE ×2 (08:35→08:40)
[2021-09-15] MEDS: BUPIVACAINE 0.5% PF 10 ML VIAL ONE ×2 (08:52→09:22)
[2021-09-15] MEDS ORDERED: ONDANSETRON 4 MG/2 ML VIAL ONE (08:55)
[2021-09-15] MEDS ORDERED: KETOROLAC 30 MG/ML INJ ONE (08:55)
[2021-09-15] MEDS ORDERED: BUPIVACAINE 0.5% PF 10 ML VIAL ONE (09:24)
[2021-09-15] MEDS: MORPHINE 4 MG/ML SYR ONE ×4 (09:55→10:18)
[2021-09-15 10:53] VITALS: BP 140/76; O2SAT 98
[2021-09-15] MEDS ORDERED: TAMSULOSIN 0.4 MG SR CAP ONE (11:18)
[2021-09-15] MEDS ORDERED: CODEINE 30MG/APAP 300MG TAB ONE (11:24)
[2021-09-15 11:52] VITALS: TEMP 96.9
[2021-09-15] MEDS ORDERED: TAMSULOSIN 0.4 MG SR CAP PO ONE (12:00)
== END 2021-09-15 11:49 | disposition home or self-care (01) ==
LOC: OR 07:08
PROVIDERS: ATTEND Surgery
PROC: 0YU50JZ Supplement Right Inguinal Region with Synthetic Substitute, Open Approach (ICD-10-PCS; principal; 2021-09-15 08:30)
DX: K40.30 Unilateral inguinal hernia, with obstruction, without gangrene, not specified as recurrent (principal); Z20.822 Contact with and (suspected) exposure to COVID-19
CPT/HCPCS: 93005; 85025; 80048; 36415; 88302; 71046; 49507; U0003; J2704; J3010; J0690; J7030; J2405; J2250

== ENCOUNTER 2021-09-17 09:43 | Emergency (ER) | payer MEDICARE ==
--- OUTSIDE RECORDS SUMMARY | 2021-09-17 09:47 | XMS REPORT | Continuity of Care Document ---
:1940 Author Organization [facility] t Address [address] [place] [address] Care Team Providers Name Role Phone HUNG Attending Clinician Unavailable HIRO Attending Clinician Unavailable BARBARA Attending Clinician Unavailable Neil Quinteros MD Attending Clinician [facility] Attending Clinician Unavailable NEIL QUINTEROS Attending Clinician Unavailable Frederick GALO Attending Clinician Unavailable Erika Rubio Attending Clinician Unavailable Erika Rubio Attending Clinician Unavailable Eriak Rubio Admitting Clinician Unavailable Payers Payer Name Policy Type Policy Number Effective Date Expiration Date S saad [facility] [id number] 2020 00:00:00 Problems Condition Condition Condition Status Onset Resolution Last Treating Co mments Source Name Details Category Date Date Treatment Clinician Date No known No known Disease Unive rs active active ity of problems problems [facility] Allergies, Adverse Reactions, Alerts Allergy Allergy Status Severity Reaction(s) Onset Inactive Treating Comm ents Source Name Type Date Date Clinician NO KNOWN Drug Active Univers ALLERGIE Class ity of S [facility] Social History Social Habit Start Date Stop Date Quantity Comments Source History of Cigarette Smoker Universi ty of tobacco use [facility] Alcohol intake 2021-01-23 2021-01-23 Current University of 00:00:00 00:00:00 non-drinker of [facility] alcohol ([facility]) Branch Tobacco use and 2021-01-23 2021-01-23 Never used Universit y of exposure 00:00:00 00:00:00 [facility] Sex Ass[birth year] At [birth year] Universit y of 00:00:00 00:00:00 [facility] Smoking Status Start Date Stop Date Source Current every day smoker 2021-01-23 00:00:00 [facility] [place] [facility] Medications Ordered Filled Start Stop Current Ordering Indication Dosage Frequency Signature Comments Components Source Medication Medication Date Date Medication? Clinician (SIG) Name Name HYDROCHLORO 2018-09 Yes 12.5mg Take 12.5 Univers THIAZIDE 1-14 mg by ity of ORAL 17:07: mouth [place] 06 daily. Medical Branch amlodipine- 2018-09 Yes 1{capsu Take 1 U nivers benazepril 1-14 le} capsule by ity of 5-20 mg per 17:07: mouth [place] capsule 06 daily. Medical Branch buPROPion 2018-09 Yes 100mg Take 100 Uni vers SR 100 mg 1-14 mg by ity of SR tablet 17:07: mouth 2 [place] 06 (two) Medical times Branch daily. glimepiride 2018-09 Yes 2mg Take 2 mg U nivers 2 mg tablet 1-14 by mouth ity of 17:07: daily with [place] 06 breakfast. Medical Branch HYDROCHLORO 2018-09 Yes 12.5mg Take 12.5 Univers THIAZIDE 1-14 mg by ity of ORAL 17:07: mouth [place] 06 daily. Medical Branch amlodipine- 2018-09 Yes 1{capsu Take 1 U nivers benazepril 1-14 le} capsule by ity of 5-20 mg per 17:07: mouth [place] capsule 06 daily. Medical Branch buPROPion 2018-09 Yes 100mg Take 100 Uni vers SR 100 mg 1-14 mg by ity of SR tablet 17:07: mouth 2 [place] 06 (two) Medical times Branch daily. glimepiride 2018-09 Yes 2mg Take 2 mg U nivers 2 mg tablet 1-14 by mouth ity of 17:07: daily with [place] 06 breakfast. Medical Branch HYDROCHLORO 2018-09 Yes 12.5mg Take 12.5 Univers THIAZIDE 1-14 mg by ity of ORAL 17:07: mouth [place] 06 daily. Medical Branch amlodipine- 2018-09 Yes 1{capsu Take 1 U nivers benazepril 1-14 le} capsule by ity of 5-20 mg per 17:07: mouth [place] capsule 06 daily. Medical Branch buPROPion 2018-09 Yes 100mg Take 100 Uni vers SR 100 mg 1-14 mg by ity of SR tablet 17:07: mouth 2 [place] 06 (two) Medical times Branch daily. glimepiride 2018-09 Yes 2mg Take 2 mg U nivers 2 mg tablet 1-14 by mouth ity of 17:07: daily with [place] 06 breakfast. Medical Branch HYDROCHLORO 2018-09 Yes 12.5mg Take 12.5 Univers THIAZIDE 1-14 mg by ity of ORAL 17:07: mouth [place] 06 daily. Medical Branch amlodipine- 2018-09 Yes 1{capsu Take 1 U nivers benazepril 1-14 le} capsule by ity of 5-20 mg per 17:07: mouth [place] capsule 06 daily. Medical Branch buPROPion 2018-09 Yes 100mg Take 100 Uni vers SR 100 mg 1-14 mg by ity of SR tablet 17:07: mouth 2 [place] 06 (two) Medical times Branch daily. glimepiride 2018-09 Yes 2mg Take 2 mg U nivers 2 mg tablet 1-14 by mouth ity of 17:07: daily with [place] 06 breakfast. Medical Branch HYDROCHLORO 2018-09 Yes 12.5mg Take 12.5 Univers THIAZIDE 1-14 mg by ity of ORAL 17:07: mouth [place] 06 daily. Medical Branch amlodipine- 2018-09 Yes 1{capsu Take 1 U nivers benazepril 1-14 le} capsule by ity of 5-20 mg per 17:07: mouth [place] capsule 06 daily. Medical Branch buPROPion 2018-09 Yes 100mg Take 100 Uni vers SR 100 mg 1-14 mg by ity of SR tablet 17:07: mouth 2 [place] 06 (two) Medical times Branch daily. glimepiride 2018-09 Yes 2mg Take 2 mg U nivers 2 mg tablet 1-14 by mouth ity of 17:07: daily with [place] 06 breakfast. Medical Branch HYDROCHLORO 2018-09 Yes 12.5mg Take 12.5 Univers THIAZIDE 1-14 mg by ity of ORAL 17:07: mouth [place] 06 daily. Medical Branch amlodipine- 2018-09 Yes 1{capsu Take 1 U nivers benazepril 1-14 le} capsule by ity of 5-20 mg per 17:07: mouth [place] capsule 06 daily. Medical Branch buPROPion 2018-09 Yes 100mg Take 100 Uni vers SR 100 mg 1-14 mg by ity of SR tablet 17:07: mouth 2 [place] 06 (two) Medical times Branch daily. glimepiride 2018-09 Yes 2mg Take 2 mg U nivers 2 mg tablet 1-14 by mouth ity of 17:07: daily with [place] 06 breakfast. Medical Branch HYDROCHLORO 2018-09 Yes 12.5mg Take 12.5 Univers THIAZIDE 1-14 mg by ity of ORAL 17:07: mouth [place] 06 daily. Medical Branch amlodipine- 2018-09 Yes 1{capsu Take 1 U nivers benazepril 1-14 le} capsule by ity of 5-20 mg per 17:07: mouth [place] capsule 06 daily. Medical Branch buPROPion 2018-09 Yes 100mg Take 100 Uni vers SR 100 mg 1-14 mg by ity of SR tablet 17:07: mouth 2 [place] 06 (two) Medical times Branch daily. glimepiride 2018-09 Yes 2mg Take 2 mg U nivers 2 mg tablet 1-14 by mouth ity of 17:07: daily with [place] 06 breakfast. Medical Branch HYDROCHLORO 2018-09 Yes 12.5mg Take 12.5 Univers THIAZIDE 1-14 mg by ity of ORAL 17:07: mouth [place] 06 daily. Medical Branch amlodipine- 2018-09 Yes 1{capsu Take 1 U nivers benazepril 1-14 le} capsule by ity of 5-20 mg per 17:07: mouth [place] capsule 06 daily. Medical Branch buPROPion 2018-09 Yes 100mg Take 100 Uni vers SR 100 mg 1-14 mg by ity of SR tablet 17:07: mouth 2 [place] 06 (two) Medical times Branch daily. glimepiride 2018-09 Yes 2mg Take 2 mg U nivers 2 mg tablet 1-14 by mouth ity of 17:07: daily with [place] 06 breakfast. Medical Branch HYDROCHLORO 2018-09 Yes 12.5mg Take 12.5 Univers THIAZIDE 1-14 mg by ity of ORAL 17:07: mouth [place] 06 daily. Medical Branch amlodipine- 2018-09 Yes 1{capsu Take 1 U nivers benazepril 1-14 le} capsule by ity of 5-20 mg per 17:07: mouth [place] capsule 06 daily. Medical Branch buPROPion 2018-09 Yes 100mg Take 100 Uni vers SR 100 mg 1-14 mg by ity of SR tablet 17:07: mouth 2 [place] 06 (two) Medical times Branch daily. glimepiride 2018-09 Yes 2mg Take 2 mg U nivers 2 mg tablet 1-14 by mouth ity of 17:07: daily with [place] 06 breakfast. Medical Branch HYDROCHLORO 2018-09 Yes 12.5mg Take 12.5 Univers THIAZIDE 1-14 mg by ity of ORAL 17:07: mouth [place] 06 daily. Medical Branch amlodipine- 2018-09 Yes 1{capsu Take 1 U nivers benazepril 1-14 le} capsule by ity of 5-20 mg per 17:07: mouth [place] capsule 06 daily. Medical Branch buPROPion 2018-09 Yes 100mg Take 100 Uni vers SR 100 mg 1-14 mg by ity of SR tablet 17:07: mouth 2 [place] 06 (two) Medical times Branch daily. glimepiride 2018-09 Yes 2mg Take 2 mg U nivers 2 mg tablet 1-14 by mouth ity of 17:07: daily with [place] 06 breakfast. Medical Branch HYDROCHLORO 2018-09 Yes 12.5mg Take 12.5 Univers THIAZIDE 1-14 mg by ity of ORAL 17:07: mouth [place] 06 daily. Medical Branch amlodipine- 2018-09 Yes 1{capsu Take 1 U nivers benazepril 1-14 le} capsule by ity of 5-20 mg per 17:07: mouth [place] capsule 06 daily. Medical Branch buPROPion 2018-09 Yes 100mg Take 100 Uni vers SR 100 mg 1-14 mg by ity of SR tablet 17:07: mouth 2 [place] 06 (two) Medical times Branch daily. glimepiride 2018-09 Yes 2mg Take 2 mg U nivers 2 mg tablet 1-14 by mouth ity of 17:07: daily with [place] 06 breakfast. Medical Branch levoFLOXaci Yes 500mg Take 1 Uni vers n 3-22 tablet by ity of (LEVAQUIN) 00:00: mouth [place] 500 mg 00 SEE-INSTRU Medical tablet CTIONS. Branch Take 1 PO the day before procedure, 1 PO morning of the procedure, 1 PO day after procedure levoFLOXaci Yes 500mg Take 1 Uni vers n 3-22 tablet by ity of (LEVAQUIN) 00:00: mouth [place] 500 mg 00 SEE-INSTRU Medical tablet CTIONS. Branch Take 1 PO the day before procedure, 1 PO morning of the procedure, 1 PO day after procedure levoFLOXaci 2018-0 Yes 500mg Take 1 Uni vers n 3-22 tablet by ity of (LEVAQUIN) 00:00: mouth [place] 500 mg 00 SEE-INSTRU Medical tablet CTIONS. Branch Take 1 PO the day before procedure, 1 PO morning of the procedure, 1 PO day after procedure levoFLOXaci 2018-0 Yes 500mg Take 1 Uni vers n 3-22 tablet by ity of (LEVAQUIN) 00:00: mouth [place] 500 mg 00 SEE-INSTRU Medical tablet CTIONS. Branch Take 1 PO the day before procedure, 1 PO morning of the procedure, 1 PO day after procedure levoFLOXaci 2018-0 Yes 500mg Take 1 Uni vers n 3-22 tablet by ity of (LEVAQUIN) 00:00: mouth [place] 500 mg 00 SEE-INSTRU Medical tablet CTIONS. Branch Take 1 PO the day before procedure, 1 PO morning of the procedure, 1 PO day after procedure levoFLOXaci 2018-0 Yes 500mg Take 1 Uni vers n 3-22 tablet by ity of (LEVAQUIN) 00:00: mouth [place] 500 mg 00 SEE-INSTRU Medical tablet CTIONS. Branch Take 1 PO the day before procedure, 1 PO morning of the procedure, 1 PO day after procedure levoFLOXaci 2018-0 Yes 500mg Take 1 Uni vers n 3-22 tablet by ity of (LEVAQUIN) 00:00: mouth [place] 500 mg 00 SEE-INSTRU Medical tablet CTIONS. Branch Take 1 PO the day before procedure, 1 PO morning of the procedure, 1 PO day after procedure levoFLOXaci 2018-0 Yes 500mg Take 1 Uni vers n 3-22 tablet by ity of (LEVAQUIN) 00:00: mouth [place] 500 mg 00 SEE-INSTRU Medical tablet CTIONS. Branch Take 1 PO the day before procedure, 1 PO morning of the procedure, 1 PO day after procedure levoFLOXaci 2018-0 Yes 500mg Take 1 Uni vers n 3-22 tablet by ity of (LEVAQUIN) 00:00: mouth [place] 500 mg 00 SEE-INSTRU Medical tablet CTIONS. Branch Take 1 PO the day before procedure, 1 PO morning of the procedure, 1 PO day after procedure levoFLOXaci 2018-0 Yes 500mg Take 1 Uni vers n 3-22 tablet by ity of (LEVAQUIN) 00:00: mouth [place] 500 mg 00 SEE-INSTRU Medical tablet CTIONS. Branch Take 1 PO the day before procedure, 1 PO morning of the procedure, 1 PO day after procedure levoFLOXaci 2018-0 Yes 500mg Take 1 Uni vers n 3-22 tablet by ity of (LEVAQUIN) 00:00: mouth [place] 500 mg 00 SEE-INSTRU Medical tablet CTIONS. Branch Take 1 PO the day before procedure, 1 PO morning of the procedure, 1 PO day after procedure HYDROcodone 2018-0 Yes 1{tbl} Take 1 Un soy -acetaminop 3-05 tablet by ity of [place] 10-325 00:00: mouth [place] mg tablet 00 (four) Medical times Branch daily. HYDROcodone 2018-0 Yes 1{tbl} Take 1 Un soy -acetaminop 3-05 tablet by ity of hen 10-325 00:00: mouth [place] mg tablet 00 (four) Medical times Branch daily. HYDROcodone 2018-0 Yes 1{tbl} Take 1 Un soy -acetaminop 3-05 tablet by ity of hen 10-325 00:00: mouth [place] mg tablet 00 (four) Medical times Branch daily. HYDROcodone 2018-0 Yes 1{tbl} Take 1 Un soy -acetaminop 3-05 tablet by ity of hen 10-325 00:00: mouth [place] mg tablet 00 (four) Medical times Branch daily. HYDROcodone 2018-0 Yes 1{tbl} Take 1 Un soy -acetaminop 3-05 tablet by ity of hen 10-325 00:00: mouth [place] mg tablet 00 (four) Medical times Branch daily. HYDROcodone 2018-0 Yes 1{tbl} Take 1 Un soy -acetaminop 3-05 tablet by ity of hen 10-325 00:00: mouth [place] mg tablet 00 (four) Medical times Branch daily. HYDROcodone 2018-0 Yes 1{tbl} Take 1 Un soy -acetaminop 3-05 tablet by ity of hen 10-325 00:00: mouth [place] mg tablet 00 (four) Medical times Branch daily. HYDROcodone 2018-0 Yes 1{tbl} Take 1 Un soy -acetaminop 3-05 tablet by ity of hen 10-325 00:00: mouth [place] mg tablet 00 (four) Medical times Branch daily. HYDROcodone 2018-0 Yes 1{tbl} Take 1 Un soy -acetaminop 3-05 tablet by ity of hen 10-325 00:00: mouth 4 [place] mg tablet 00 (four) Medical times Branch daily. HYDROcodone 2018-0 Yes 1{tbl} Take 1 Un soy -acetaminop 3-05 tablet by ity of hen 10-325 00:00: mouth 4 [place] mg tablet 00 (four) Medical times Branch daily. HYDROcodone 2018-0 Yes 1{tbl} Take 1 Un soy -acetaminop 3-05 tablet by ity of hen 10-325 00:00: mouth 4 [place] mg tablet 00 (four) Medical times Branch daily. ALPRAZolam Yes .5{tbl} Take 0.5 Univers 1 mg tablet 2-24 tablets by it y of 00:00: mouth [place] 00 daily. Medical Branch ALPRAZolam 2017-0 Yes .5{tbl} Take 0.5 Univers 1 mg tablet 2-24 tablets by it y of 00:00: mouth [place] 00 daily. [facility] Branch ALPRAZolam 0 Yes .5{tbl} Take 0.5 Univers 1 mg tablet 2-24 tablets by it y of 00:00: mouth [place] 00 daily. [facility] Branch ALPRAZolam 2017-0 Yes .5{tbl} Take 0.5 Univers 1 mg tablet 2-24 tablets by it y of 00:00: mouth [place] 00 daily. Medical Branch ALPRAZolam 2017-0 Yes .5{tbl} Take 0.5 Univers 1 mg tablet 2-24 tablets by it y of 00:00: mouth [place] 00 daily. Medical Branch ALPRAZolam 2018-0 Yes .5{tbl} Take 0.5 Univers 1 mg tablet 2-24 tablets by it y of 00:00: mouth [place] 00 daily. Medical Branch ALPRAZolam 2018-0 Yes .5{tbl} Take 0.5 Univers 1 mg tablet 2-24 tablets by it y of 00:00: mouth [place] 00 daily. [facility] Branch ALPRAZolam 2018-0 Yes .5{tbl} Take 0.5 Univers 1 mg tablet 2-24 tablets by it y of 00:00: mouth [place] 00 daily. [facility] Branch ALPRAZolam 2018-0 Yes .5{tbl} Take 0.5 Univers 1 mg tablet 2-24 tablets by it y of 00:00: mouth [place] 00 daily. Medical Branch ALPRAZolam 2018-0 Yes .5{tbl} Take 0.5 Univers 1 mg tablet 2-24 tablets by it y of 00:00: mouth [place] 00 daily. [facility] Branch ALPRAZolam 2018-0 Yes .5{tbl} Take 0.5 Univers 1 mg tablet 2-24 tablets by it y of 00:00: mouth [place] 00 daily. [facility] Branch Immunizations Ordered Filled Immunization Date Status Comments [facility] e Immunization Name Name SARS-COV-2 COVID-19 2020-12-20 Completed Unive rsity of PFIZER VACCINE 00:00:00 [facility] SARS-COV-2 COVID-19 2020-12-20 Completed Unive rsity of PFIZER VACCINE 00:00:00 [facility] SARS-COV-2 COVID-19 2020-12-20 Completed Unive rsity of PFIZER VACCINE 00:00:00 [facility] SARS-COV-2 COVID-19 2020-12-20 Completed Unive rsity of PFIZER VACCINE 00:00:00 [facility] SARS-COV-2 COVID-19 2020-12-20 Completed Unive rsity of PFIZER VACCINE 00:00:00 [facility] SARS-COV-2 COVID-19 2020-12-20 Completed Unive rsity of PFIZER VACCINE 00:00:00 [facility] SARS-COV-2 COVID-19 2020-12-20 Completed Unive rsity of PFIZER VACCINE 00:00:00 [facility] SARS-COV-2 COVID-19 2020-12-20 Completed Unive rsity of PFIZER VACCINE 00:00:00 [facility] SARS-COV-2 COVID-19 2020-12-20 Completed Unive rsity of PFIZER VACCINE 00:00:00 [facility] SARS-COV-2 COVID-19 2020-12-20 Completed Unive rsity of PFIZER VACCINE 00:00:00 [facility] SARS-COV-2 COVID-19 2020-11-29 Completed Unive rsity of PFIZER VACCINE 00:00:00 [facility] SARS-COV-2 COVID-19 2020-11-29 Completed Unive rsity of PFIZER VACCINE 00:00:00 [facility] SARS-COV-2 COVID-19 2020-11-29 Completed Unive rsity of PFIZER VACCINE 00:00:00 [facility] SARS-COV-2 COVID-19 2020-11-29 Completed Unive rsity of PFIZER VACCINE 00:00:00 [facility] SARS-COV-2 COVID-19 2020-11-29 Completed Unive rsity of PFIZER VACCINE 00:00:00 [facility] SARS-COV-2 COVID-19 2020-11-29 Completed Unive rsity of PFIZER VACCINE 00:00:00 [facility] SARS-COV-2 COVID-19 2020-11-29 Completed Unive rsity of PFIZER VACCINE 00:00:00 [facility] SARS-COV-2 COVID-19 2020-11-29 Completed Unive rsity of PFIZER VACCINE 00:00:00 [facility] SARS-COV-2 COVID-19 2020-11-29 Completed Unive rsity of PFIZER VACCINE 00:00:00 [facility] SARS-COV-2 COVID-19 2020-11-29 Completed Unive rsity of PFIZER VACCINE 00:00:00 [facility] Vital Signs Vital Name Observation Time Observation Value Comments Source Systolic blood 2021-01-23 13:48:00 165 mm[Hg] Univer sity of pressure [facility] Diastolic blood 2021-01-23 13:48:00 73 mm[Hg] Unive rsity of pressure [facility] Heart rate 2021-01-23 13:48:00 76 /min [facility] Body temperature 2021-01-23 13:48:00 36.39 Yesika Univ ersity [facility] Respiratory rate 2021-01-23 13:48:00 18 /min Univ ersity [facility] Body height 2021-01-23 13:48:00 172.7 cm [facility] Body weight 2021-01-23 13:48:00 85.957 kg [facility] BMI 2021-01-23 13:48:00 28.81 kg/m2 [facility] Procedures Procedure Date / Time Performed Performing Clinician Sour e PROSTATIC SPECIFIC 2021-01-23 14:34:00 Nick Quinteros [facility] Encounters Start End Encounter Admission Attending Care Care Encounter Source Date/Time Date/Time Type Type Clinicians Facility Department ID 2021-09-01 Outpatient OCTAVIOOR, [facility] [id number] [place] 01:05:34 TL Health 2021 Outpatient [facility] [id number] [place] 11:17:52 Health 2021-06-24 Outpatient BOSCH, [facility] [id number] [place] 11:41:27 EVAN Health 2021-06-16 Outpatient BARBARA, [facility] [id number] [place] [facility]:57[facility]11 Outpatient BARBARA, [facility] [id number] [place] 12:02:[facility] 2021-02-12 2021-02-12 Telephone RON Quinteros [id number] Univers 00:00:00 00:00:00 [facility] [id number] i ty of [facility] [id number] Alek as [id number] [facility] 204 Branch 2021-01-24 2021-01-24 Telephone RON Quinteros [id number] Univers 00:00:00 00:00:00 [facility] [id number] i ty of [facility] [id number] Alek as [id number] [facility] 204 Branch 2021-01-23 2021-01-23 Sec Accountant [facility] UNIVERSIT [id number] Univers 09:25:30 09:29:17 [facility]. [id number] ity of [id number] [id number] [facility] 316 Branch 2021-01-23 2021-01-23 Office ORN Quinteros [id number] Univers 08:39:05 09:26:37 Visit [facility] [id number] i ty of [facility] [id number] Alek as [id number] [facility] 204 Branch 2021-01-23 2021-01-23 Outpatient KARLEY [facility] [id number] Univers 09:00:00 09:00:00 NICK [id number] [facility] 2021-01-23 2021-01-23 Outpatient R ROSHANSHEELA [facility] [id number] Univers 09:00:00 09:00:00 NICK [facility] 2021-01-23 2021-01-23 Telephone RON QuinterosIT [id number] Univers 00:00:00 00:00:00 [facility] [id number] i ty of [facility] [id number] Alek as [id number] [address] 2020-12-20 2020-12-20 Outpatient Issac GALO [facility] [id number] Univers 14:10:00 14:10:00 ISA [facility] 2020-11-29 2020-11-29 Outpatient Issac GALO [facility] [id number] Univers 14:10:00 14:10:00 ISA [facility] 2020-05-16 2020-05-16 Outpatient 3 Rustamjaspal Caleb [facility] [id number] [facility]. 10:47:00 23:59:00 Caleb Rubio [facility] 2020-05-16 2020-05-16 Outpatient 3 Ramiro Caleb [facility] [id number] St. 10:47:00 10:47:00 Caleb Rubio -2019 902 [facility] 2020-02-01 2020-02-01 Outpatient Issac QUINTEROS [facility] [id number] [id number] Univers 08:15:00 08:15:00 [place] [id number] [facility] 2020-02-01 2020-02-01 [facility] [id number] Univers 08:15:00 08:15:00 NICK [facility] 2020-02-01 2020-02-01 Telemedici LELO Quinteros [id number] Univers 07:41:50 07:56:50 ne Visit [facility] [id number] [facility] [id number] Alek as [phone] [place] [address] Branch 2019-07-27 2019-07-27 Outpatient R KARLEY [facility] [id number] Univers 10:45:00 11:27:21 NICK [facility] Results Test Description Test Time Test Comments Results Result Comments Source PROSTATIC SPECIFIC ANTIGEN 2021-01-23 16:41:06 Test Item Value Reference Range Interpretation Comme nts PSA (test code = 6.24 ng/mL See_Comment H [Automated message] The [id number]) system which ge nerated this result tra nsmitted reference range : <=4.00. The reference r meghan was not used to int erpret this result as ruby l/abnormal. CINDY (test code = CINDY) Biotin has been reported to cause a negative bias, interpret results relative to patient's use of biotin. Lab Interpretation (test Abnormal code = 41628-8) [facility] [id number] 16:41:06 Test Item Value Reference Range Interpretation Comments PSA (test code = 6.24 ng/mL See_Comment H [Automated [id number]) message] The system which generated this result transmitted reference range : <=4.00. The reference range was not used to interpret this result as normal/abnormal . CINDY (test code = CINDY) Biotin has been reported to cause a negative bias, interpret results relative to patient's use of biotin. Lab Interpretation Abnormal (test code = 92766-6) [facility] [id number] 12:05:24 Test Item Value Reference Range Interpretation Comments Glucose POC (test 68 mg/dL 70-115 L If you con top former your code = Glucose POC) patient critically ill, the Magdalena-Accu Check Infrom II meter should not be used for Glucose determination. Draw a venous Glucose and send to the main Lab for analysis.
[2021-09-17] MEDS ORDERED: MORPHINE 2 MG/ML SYR ONE (10:09)
[2021-09-17] MEDS ORDERED: ONDANSETRON 4 MG/2 ML VIAL ONE (10:09)
[2021-09-17 10:29] LABS: Absolute Lymphocytes (CBC) 0.9 K/uL (0.7-4.9); Hematocrit 40.5 % (39.6-49.0); Lymphocytes % 9.7 % (15.3-44.8); MPV 8.3 fL (7.6-11.3); RBC Red Blood Cell Count 4.51 M/uL (4.33-5.43)
[2021-09-17 10:45] LABS: Albumin 3.2 g/dL (3.4-5.0); Bilirubin Direct 0.2 mg/dL (0-0.2); Bilirubin Total 0.6 mg/dL (0.2-1.0); Potassium 3.8 mmol/L (3.5-5.1); Protein, Total 7.2 g/dL (6.4-8.2)
--- NOTE | 2021-09-17 11:46 | RAD REPORT ---
EXAM DESCRIPTION: CTAbdomen Pelvis Wo Contrast - 09/17/2021 11:33 am CLINICAL HISTORY: s/p right inguinal hernia repair, abd pain;Abd pain COMPARISON: Abdomen Pelvis Wo Contrast dated 12/21/2017 TECHNIQUE: CT of the abdomen and pelvis was performed. All CT scans are performed using dose optimization technique as appropriate and may include automated exposure control or mA/KV adjustment according to patient size. FINDINGS: Lower chest: Dependent atelectasis. Multi-vessel coronary artery disease. Liver: No acute abnormality or suspicious lesions. Biliary: Distended gallbladder. No pericholecystic inflammatory changes. Stomach: No significant focal abnormality. Duodenum: No significant focal abnormality. Pancreas: No significant abnormality. Spleen: No significant abnormality. Adrenal: No suspicious lesions. Kidney/ureter: No hydronephrosis. No renal calculi. Retroperitoneum: No retroperitoneal adenopathy. Vascular: No aneurysm. Bowel: Diverticulosis without diverticulitis. Normal appendix. No bowel obstruction.. Peritoneum: Surgical changes from recent right inguinal hernia repair. Small volume of gas and fluid in the proximal right inguinal canal/right lower quadrant measuring up to 2.6 cm. Fat containing umbi lical hernia. Bladder: Grossly unremarkable. Reproductive: Prostatomegaly. The prostate measures 5.7 cm in transverse dimension. Bones: No acute fracture. Multilevel degenerative changes are present in the spine. Other: n/a IMPRESSION: Surgical changes from recent right inguinal hernia repair. Gas and fluid in the proximal right inguinal canal is presumably postoperative. Moderate prostatomegaly.
[2021-09-17 12:28] LABS: Urine Blood Negative (Negative); Urine Glucose Negative (Negative); Urine Protein Trace (Negative); Urine Specific Gravity 1.025 (1.005-1.030); Urine pH 5.5 (5.0-7.0)
--- NOTE | 2021-09-17 13:21 | EDPHYS ---
Physician Documentation [facility] Name: Qamar Campbell Age: 81 yrs Sex: Male : 1940 Arrival Date: 09/17/2021 Time: 09:50 Bed 15 Private MD: ED Physician Salinas Zamora HPI: 09/17 11:50 This 81 yrs old Male presents to ER via EMS with complaints of Abdominal pain and rn trouble urinating. 11:50 The patient presents with abdominal pain in the lower abdomen. Onset: The rn symptoms/episode began/occurred yesterday. The symptoms do not radiate. Associated signs and symptoms: Pertinent positives: dysuria, Pertinent negatives: blood in stools, fever, hematuria, shortness of breath, testicular pain, vomiting, vomiting blood. The symptoms are described as achy, crampy. Modifying factors: The symptoms are alleviated by nothing, the symptoms are aggravated by touching the area, Trying to urinate. Severity of pain: At its worst the pain was moderate in the emergency department the pain has improved. The patient has not experienced similar symptoms in the past. The patient has been recently seen by a physician:. Patient reports just discharged yesterday for right inguinal hernia repair by Dr. Cesar. Uncomplicated surgery. Reports lower abdominal pain near the incision and suprapubic that began last night and is associated with difficulty urinating. Feels like cannot empty completely. Has history of enlarged prostate. No fever.. Historical: - Home Meds: 09:58 Alprazolam Oral [Active]; Hydrocodone-Acetaminophen Oral [Active]; Metformin Oral cb5 [Active]; - PMHx: 09:58 Diabetes - NIDDM; Hypertension; cb5 - Immunization history:: Adult Immunizations up to date. - Social history:: Smoking status: Patient denies any tobacco usage or history of. - Family history:: not pertinent. - Hospitalizations: : The patient was recently seen at [facility]. ROS: 11:50 Constitutional: Negative for fever, chills, and weight loss, Eyes: Negative for injury, rn pain, redness, and discharge, Neck: Negative for injury, pain, and swelling, Cardiovascular: Negative for chest pain, palpitations, and edema, Respiratory: Negative for shortness of breath, cough, wheezing, and pleuritic chest pain, Abdomen/GI: Positive for lower abdominal pain Back: Negative for injury and pain, : Positive for difficulty urinating MS/Extremity: Negative for injury and deformity, Skin: Negative for injury, rash, and discoloration, Neuro: Negative for headache, weakness, numbness, tingling, and seizure. Exam: 11:50 Constitutional: This is a well developed, well nourished patient who is awake, alert, rn and in no acute distress. Head/Face: Normocephalic, atraumatic. Eyes: Periorbital areas with no swelling, redness, or edema. Cardiovascular: Regular rate and rhythm. No pulse deficits. Respiratory: No increased work of breathing, no retractions or nasal flaring. Abdomen/GI: Soft, mild suprapubic tenderness and tenderness along the right inguinal incision. Surgical wound is clean dry and intact with juan f present. No drainage. No warmth or signs of infection at the surgical wound. Moderate ecchymosis around the base of penis and scrotum Skin: Warm, dry MS/ Extremity: Pulses equal, no cyanosis. Neuro: Awake and alert, GCS 15 Vital Signs: 09:54 BP 157 / 87; Pulse 83; Resp 16; Temp 98.1; Pulse Ox 96% ; Pain 5/10; cb5 10:00 BP 157 / 87; Pulse 83; Resp 16; Temp 98.1; Pulse Ox 96% ; Pain 5/10; cb5 MDM: 09:50 Patient medically screened. rn 13:18 Differential diagnosis: bowel obstruction, Ureterolithiasis, urinary tract infection, rn prostatomegaly, urinary retention, post-operative pain vs complication. Data reviewed: vital signs, nurses notes, lab test result(s), radiologic studies, CT scan, and as a result, I will discharge patient. Counseling: I had a detailed discussion with the patient and/or guardian regarding: the historical points, exam findings, and any diagnostic results supporting the discharge/admit diagnosis, lab results, radiology results, the need for outpatient follow up, to return to the emergency department if symptoms worsen or persist or if there are any questions or concerns that arise at home. Response to treatment: the patient's symptoms have mildly improved after treatment, and as a result, I will discharge patient. Special discussion: I discussed with the patient/guardian in detail that at this point there is no indication for admission to the hospital. It is understood, however, that if the symptoms persist or worsen the patient needs to return immediately for re-evaluation. ED course: CT abdomen pelvis without acute findings. Shows prostatomegaly. Post void residual was only [address] scan and after CT scan patient was able to urinate on his own about 300 cc. No sign of postoperative complication on CT scan and no sign of infection or dehiscence on exam. Will discharge home with return precautions and follow-up as scheduled.. 09/17 09:51 Order name: Basic Metabolic Panel; Complete Time: 11:16 rn 09/17 09:51 Order name: CBC with Diff; Complete Time: 11:16 rn 09/17 09:51 Order name: Hepatic Function; Complete Time: 11:16 rn 09/17 09:51 Order name: Lipase; Complete Time: 11:16 rn 09/17 09:51 Order name: Urine Microscopic Only rn 09/17 12:29 Order name: Urine Dipstick-Ancillary; Complete Time: 12:42 EDMS 09/17 09:51 Order name: IV Saline Lock; Complete Time: 10:22 rn 09/17 09:51 Order name: Labs collected and sent; Complete Time: 10:22 rn 09/17 09:51 Order name: Urine Dipstick-Ancillary (obtain specimen); Complete Time: 12:36 rn 09/17 09:51 Order name: Bladder Scanner: check post-void residual; Complete Time: 10:23 rn 09/17 10:53 Order name: Abdomen ; Complete Time: 11:48 EDMS Administered Medications: 10:20 Drug: Zofran (Ondansetron) 4 mg Route: IVP; Site: left antecubital; cb5 10:38 Follow up: Response: No adverse reaction jh6 10:22 Drug: morphine 2 mg Route: IVP; Site: left antecubital; cb5 10:38 Follow up: Response: No adverse reaction; Pain is decreased jh6 Disposition Summary: 09/17/21 13:20 Discharge Ordered Location: Home rn Problem: new rn Symptoms: have improved rn Condition: Stable rn Diagnosis - Lower abdominal pain, unspecified - post-operative rn Followup: rn - With: Private Physician - When: As needed - Reason: Recheck today's complaints, Re-evaluation by your physician Discharge Instructions: - Discharge Summary Sheet rn - Abdominal Pain, Adult rn Forms: - Medication Reconciliation Form rn - Thank You Letter rn - Antibiotic inpatient care manager rn - Prescription Opioid Use rn Prescriptions: - tamsulosin 0.4 mg Oral capsule - take 1 capsule by ORAL route once daily 1/2 hour following the same meal each rn day; 30 capsule; Refills: 0, Product Selection Permitted Signatures: Dispatcher [employer] EDMS Salinas Zamora MD MD rn Boman, Colleen, RN RN 5 [facility] center[facility] salas RN jh6 Corrections: (The following items were deleted from the chart) 10:53 09:52 Abdomen Pelvis W Con+CT.RAD.BRZ ordered. EDMS EDMS
--- NOTE | 2021-09-17 13:21 | ER ---
Nurse's Notes [facility] Name: Qamar Campbell Age: 81 yrs Sex: Male : 1940 Arrival Date: 09/17/2021 Time: 09:50 Bed 15 Private MD: Diagnosis: Lower abdominal pain, [id number] Presentation: 09/17 09:54 Chief complaint: Patient states: patient stated he had hernia surgery last month is cb5 having difficulty urinating. Coronavirus screen: Client denies travel out of the [place] in the last 14 days. At this time, the client does not indicate any symptoms associated with coronavirus-19. Ebola Screen: Patient negative for fever greater than or equal to 101.5 degrees Fahrenheit, and additional compatible Ebola Virus Disease symptoms Patient denies exposure to infectious person. No symptoms or risks identified at this time. Initial Sepsis Screen: Does the patient meet any 2 criteria? No. Patient's initial sepsis screen is negative. Does the patient have a suspected source of infection? No. Patient's initial sepsis screen is negative. Risk Assessment: Do you want to hurt yourself or someone else? Patient reports no desire to harm self or others. Onset of symptoms was September 16, 2021 at 20:00. 09:54 Method Of Arrival: EMS: [facility] cb5 09:54 Acuity: ELISSA 3 cb5 Triage Assessment: 09:45 General: Appears in no apparent distress. comfortable, well developed, Behavior is cb5 calm, cooperative, appropriate for age. Pain: Complains of pain in abdomen Pain currently is 5 out of 10 on a pain scale. Quality of pain is described as pressure. Historical: - Home Meds: 09:58 Alprazolam Oral [Active]; Hydrocodone-Acetaminophen Oral [Active]; Metformin Oral cb5 [Active]; - PMHx: 09:58 Diabetes - NIDDM; Hypertension; cb5 - Immunization history:: Adult Immunizations up to date. - Social history:: Smoking status: Patient denies any tobacco usage or history of. - Family history:: not pertinent. - Hospitalizations: : The patient was recently seen at [facility]. Screenin:28 Abuse screen: Denies threats or abuse. Denies injuries from another. Nutritional cb5 screening: No deficits noted. Tuberculosis screening: No symptoms or risk factors identified. Fall Risk None identified. Assessment: 10:39 Reassessment: Patient states feeling better. jh6 11:19 General: Gave patient glass 4 ounces of cranberry juice and 1 packet of molina cb5 crackers. See pts glucose results. Pt stated he took his metformin this morning but did not eat breakfast.. 12:51 Reassessment: Patient states symptoms have improved. pt resting, denies pain, no cb5 distress.. Vital Signs: 09:54 BP 157 / 87; Pulse 83; Resp 16; Temp 98.1; Pulse Ox 96% ; Pain 5/10; cb5 10:00 BP 157 / 87; Pulse 83; Resp 16; Temp 98.1; Pulse Ox 96% ; Pain 5/10; cb5 ED Course: 09:50 Patient arrived in ED. rn 09:50 Salinas Zamora MD is Attending Physician. rn 09:54 Elizabeth Cavazos, ERLINDA is Primary Nurse. cb5 09:57 Triage completed. cb5 10:00 Arm band placed on right wrist. cb5 10:22 Basic Metabolic Panel Sent. cb5 10:22 CBC with Diff Sent. cb5 10:22 Hepatic Function Sent. cb5 10:22 Lipase Sent. cb5 10:29 Patient has correct armband on for positive identification. Fall risk band placed. Bed cb5 in low position. Side rails up X 1. 10:29 No provider procedures requiring assistance completed. cb5 11:[address] via stretcher. cb5 11:[address] cb5 11:31 Abdomen In Process Unspecified. EDMS 11:35 pt is back in ER room #15, awake, alert, denies pain, no distress. Safety precautions cb5 are in effect. Side rails up x 2, bed in low position, call light in reach. H.O.B. up 30 degrees. 12:36 Urine Microscopic Only Sent. cb5 14:14 IV discontinued. cb5 Administered Medications: 10:20 Drug: Zofran (Ondansetron) 4 mg Route: IVP; Site: left antecubital; cb5 10:38 Follow up: Response: No adverse reaction jh6 10:22 Drug: morphine 2 mg Route: IVP; Site: left antecubital; cb5 10:38 Follow up: Response: No adverse reaction; Pain is decreased jh6 Outcome: 13:20 Discharge ordered by rn 14:14 Discharged to home via wheelchair. cb5 14:14 Condition: stable 14:14 Discharge instructions given to 14:15 Patient left the ED. cb5 Signatures: Dispatcher [employer] Salinas Diaz MD MD rn Hastedt, Jennifer RN RN jh6 Elizabeth Cavazos RN RN cb5
[2021-09-17 13:53] LABS: Urine Bacteria <20 /HPF (NONE SEEN); Urine Mucus 2+ /HPF (NONE SEEN); Urine RBC <5 /HPF (NONE SEEN)
[2021-09-17 14:19] VITALS: BP 157/87; TEMP 98.1; O2SAT 96
== END 2021-09-17 14:15 | disposition home or self-care (01) ==
LOC: ER 09:43
DX: R10.30 Lower abdominal pain, unspecified (principal); G89.18 Other acute postprocedural pain; E11.9 Type 2 diabetes mellitus without complications; I10 Essential (primary) hypertension
CPT/HCPCS: 85025; 80048; 36415; 80076; 83690; 74176; 96375; 96374; 99284; J2270; J2405; 81003; 81015

== ENCOUNTER 2022-07-14 04:04 | Emergency (ER) | payer OTHER ==
--- OUTSIDE RECORDS SUMMARY | 2022-07-14 04:11 | XMS REPORT | Continuity of Care Document ---
:1940 Author Organization [facility] t Address [address] [place] [address] Care Team Providers Name Role Phone John Nixon Attending Clinician Unavailable TL PERSAUD Attending Clinician Unavailable EVAN BOSCH Attending Clinician Unavailable ANABELA JIMENEZ Attending Clinician Unavailable Nick Quinteros MD Attending Clinician [facility] Attending Clinician Unavailable NICK QUINTEROS Attending Clinician Unavailable ISA GALO Attending Clinician Unavailable Caleb Rubio Attending Clinician Unavailable Caleb Rubio Attending Clinician Unavailable Caleb Rubio Admitting Clinician Unavailable Payers Payer Name Policy Type Policy Number Effective Date Expiration Date S saad MEDICARE PART A [id number] 2020 2020 AND B 00:00:00 00:00:00 [facility] [id number] 2020 00:00:00 [facility] Medicare 53 [id number] Common Spir it Complete [facility] Problems Condition Condition Condition Status Onset Resolution Last Treating Co mments Source Name Details Category Date Date Treatment Clinician Date [id number] BPH loc w Problem Active Com mon urin Spirit obs/LUTS - [facility] [id number] Prostate Problem Active Comm on cancer [facility] [id number] Urge Problem Active Common incontinen Spirit ce [facility] No known No known Disease Unive rs active active ity of problems problems [place] [facility] Allergies, Adverse Reactions, Alerts Allergy Allergy Status Severity Reaction(s) Onset Inactive Treating Comm ents Source Name Type Date Date Clinician NO KNOWN Drug Active Nivia ALLERGYNES Class ity of [facility] No Known Drug Active [facility] Social History Social Habit Start Date Stop Date Quantity Comments Source History of Common Spirit - Tobacco Use [facility] Sex Assigned At Common Sp qiana - [facility] Alcohol intake 2021-01-23 2021-01-23 Current University 00:00:00 00:00:00 non-drinker of [facility] alcohol Branch (finding) Tobacco use and 2021-01-23 2021-01-23 Never used Universit y of exposure 00:00:00 00:00:00 [facility] Smoking Status Start Date Stop Date Source Former Smoker 2022-04-23 00:00:00 2022-04-23 00:00:00 Common S pirit - [facility] Ce nter Current every day 2021-01-23 00:00:00 [facility] smoker Medical Branch Medications Ordered Filled Start Stop [...] [place] capsule 06 daily. Medical Branch buPROPion 2018- Yes 100mg Take 100 Uni vers SR 100 mg 1-14 mg by ity of SR tablet 17:07: mouth 2 (two) Medical times Branch daily. glimepiride 2018- Yes 2mg Take 2 mg U nivers 2 mg tablet 1-14 by mouth ity of 17:07: daily with breakfast. Medical Branch levoFLOXaci 2018-0 Yes 500mg Take 1 Uni [...] 00 (four) Medical times Branch daily. ALPRAZolam 2018-0 Yes .5{tbl} Take 0.5 Univers [...] y of 00:00: mouth [place] 00 daily. [facility] Branch ALPRAZolam 2018-0 Yes .5{tbl} Take 0.5 Univers 1 mg tablet 2-24 tablets by it y of 00:00: mouth [place] 00 daily. [facility] Branch ALPRAZolam 2018-0 Yes .5{tbl} Take 0.5 Univers 1 mg tablet 2-24 tablets by it y of 00:00: mouth [place] 00 daily. [facility] Branch ALPRAZolam 2018-0 Yes .5{tbl} Take 0.5 Univers 1 mg tablet 2-24 tablets by it y of 00:00: mouth [place] 00 daily. [facility] Branch ALPRAZolam 2018-0 Yes .5{tbl} Take 0.5 Univers 1 mg tablet 2-24 tablets by it y of 00:00: mouth [place] 00 daily. [facility] ALPRAZolam 2018-0 Yes .5{tbl} Take 0.5 Univers 1 mg tablet 2-24 tablets by it y of 00:00: mouth [place] 00 daily. [facility] Branch ALPRAZolam 2018-0 Yes .5{tbl} Take 0.5 Univers 1 mg tablet 2-24 tablets by it y of 00:00: mouth [place] 00 daily. [facility] Branch ALPRAZolam 2018-0 Yes .5{tbl} Take 0.5 Univers 1 mg tablet 2-24 tablets by it y of 00:00: mouth [place] 00 daily. [facility] Branch No Known No Known No Common Medications Medications S [facility] Immunizations Ordered Filled Immunization Date Status Comments [facility] e Immunization Name Name SARS-COV-2 COVID-19 2020-12-20 Completed Unive rsity of PFIZER VACCINE 00:00:00 [facility] SARS-COV-2 COVID-19 2020-12-20 Completed Unive rsity of PFIZER VACCINE 00:00:00 [facility] SARS-COV-2 COVID-19 2020-12-20 Completed Unive rsity of PFIZER VACCINE 00:00:00 [facility] SARS-COV-2 COVID-19 2020-12-20 Completed Unive rsity of PFIZER VACCINE 00:00:00 [facility] SARS-COV-2 COVID-19 2020-12-20 Completed Unive rsity of PFIZER VACCINE 00:00:00 [facility] SARS-COV-2 COVID-19 2020-12-20 Completed Unive rsity of PFIZER VACCINE 00:00:00 [facility] SARS-COV-2 COVID-19 2020-12-20 Completed Unive rsity of PFIZER VACCINE 00:00:00 [facility] SARS-COV-2 COVID-19 2020-12-20 Completed Unive rsity of PFIZER VACCINE 00:00:00 [facility] SARS-COV-2 COVID-19 2020-12-20 Completed Unive rsity of PFIZER VACCINE 00:00:00 [facility] SARS-COV-2 COVID-19 2020-12-20 Completed Unive rsity of PFIZER VACCINE 00:00:00 [facility] SARS-COV-2 COVID-19 2020-11-29 Completed Unive rsity of PFIZER VACCINE 00:00:00 [facility] SARS-COV-2 COVID-19 2020-11-29 Completed Unive rsity of PFIZER VACCINE 00:00:00 [facility] SARS-COV-2 COVID-19 2020-11-29 Completed Unive rsity of PFIZER VACCINE 00:00:00 [facility] SARS-COV-2 COVID-19 2020-11-29 Completed Unive rsity of PFIZER VACCINE 00:00:00 [facility] SARS-COV-2 COVID-19 2020-11-29 Completed Unive rsity of PFIZER VACCINE 00:00:00 [facility] SARS-COV-2 COVID-19 2020-11-29 Completed Unive rsity of PFIZER VACCINE 00:00:00 [facility] SARS-COV-2 COVID-19 2020-11-29 Completed Unive rsity of PFIZER VACCINE 00:00:00 [facility] SARS-COV-2 COVID-19 2020-11-29 Completed Unive rsity of PFIZER VACCINE 00:00:00 [facility] SARS-COV-2 COVID-19 2020-11-29 Completed Unive rsity of PFIZER VACCINE 00:00:00 [facility] SARS-COV-2 COVID-19 2020-11-29 Completed Unive rsity of PFIZER VACCINE 00:00:00 [facility] Vital Signs Vital Name Observation Time Observation Value Comments Source height 2022-04-23 14:30:00 67 [in_i] [facility] weight 2022-04-23 14:30:00 182.8 [lb_av] [facility] temperature 2022-04-23 14:30:00 97.8 [degF] [facility] bmi 2022-04-23 14:30:00 28.63 kg/m2 [facility] oximetry 2022-04-23 14:30:00 94 % [facility] respiratory rate 2022-04-23 14:30:00 17 /min Comm on [facility] blood pressure 2022-04-23 14:30:00 162 mm[Hg] [facility] systolic [facility] blood pressure 2022-04-23 14:30:00 72 mm[Hg] [facility] diastolic [facility] Systolic blood 2021-01-23 13:48:00 165 mm[Hg] Univer sity of [facility] Diastolic blood 2021-01-23 13:48:00 73 mm[Hg] Unive rsity of [facility] Heart rate 2021-01-23 13:48:00 76 /min [facility] Body temperature 2021-01-23 13:48:00 36.39 [facility] 2021-01-23 13:48:00 18 /min [facility] Body height 2021-01-23 13:48:00 172.7 cm [facility] Body weight 2021-01-23 13:48:00 85.957 kg [facility] BMI 2021-01-23 13:48:00 28.81 kg/m2 [facility] Height/Length 2021-09-30 12:12:10 172.72 cm Measured Weight Dosing 2021-09-30 12:12:10 81.64 kg Height/Length 2021-09-30 12:11:53 172.72 cm Measured Weight Dosing 2021-09-30 12:11:53 81.64 kg Height/Length 2021-09-30 12:11:42 172.72 cm Measured Weight Dosing 2021-09-30 12:11:42 81.64 kg Height/Length 2020-05-16 12:43:20 Measured Weight Dosing 2020-05-16 12:43:20 Procedures Procedure Date / Time Performed Performing Clinician Sourc e PROSTATIC SPECIFIC 2021-01-23 14:34:00 Nick Quinteros [facility] Encounters Start End Encounter Admission Attending Care Care Encounter Source Date/Time Date/Time Type Type Clinicians Facility Department ID 2022-04-23 [facility] [id number] [facility] 2022-04-07 Outpatient [facility] [id number] [place] 06:15:21 [id number] [facility] 2021-09-01 Outpatient ACHOR, [facility] [id number] [place] 01:05:[facility] [id number] [place] 11:17:52 [facility] 2021-06-24 Outpatient BOSCH, [facility] [id number] [place] 11:41:27 EVAN [facility] 2021-06-16 Outpatient BARBARA, [facility] [id number] [place] 11:57:29 [facility] 2021-06-11 Outpatient BARBARA, [facility] [id number] [place] 12:02:[facility] 2022-04-23 2022-04-23 OFFICE [facility] [id number] Co mmon 00:00:00 00:00:00 VISIT NEW Spir it PT LEVEL [address] - [facility] 2021-02-12 2021-02-12 Telephone LELO Quinteros [id number] Univers 00:00:00 00:00:00 [facility] [id number] [facility] [id number] Alek as [id number] [place] [address] Branch 2021-01-24 2021-01-24 Telephone LELO Quinteros [id number] Univers 00:00:00 00:00:00 [facility] [id number] i ty of [facility] [id number] Alek as [id number] [facility] 204 Branch 2021-01-23 2021-01-23 Maintenance [facility] UNIVERSIT [id number] Univers 09:25:30 09:29:17 Visit Nick Quinteros [facility] 350. 1.13.10 ity of [place] [id number] [facility] 316 Branch 2021-01-23 2021-01-23 Office Aldair [facility] [id number] Univers 08:39:05 09:26:37 Visit Nick [facility] [id number] i ty of [facility] 4.2.7.2.686 Alek as [id number] [facility] 204 [place] 2021-01-23 2021-01-23 Outpatient R ALDAIR [facility] [id number] Univers 09:00:00 09:00:00 [facility] 2021-01-23 2021-01-23 Telephone Aldair [facility] [id number] Univers 00:00:00 00:00:00 [facility] [id number] i ty of [facility] [id number] Alek as [id number] [facility] 204 Branch 2020-12-20 2020-12-20 Outpatient Issac GALO [facility] [id number] Univers 14:10:00 14:10:00 [facility] 2020-11-29 2020-11-29 Outpatient Issac GALO [facility] [id number] Univers 14:10:00 14:10:00 [facility] 2020-05-16 2020-05-16 Outpatient 3 Caleb Rubio [facility] [id number] St. 10:47:00 23:59:00 Caleb Rubio [facility] 2020-05-16 2020-05-16 Outpatient 3 Caleb Rubio [facility] [id number] St. 10:47:00 10:47:00 Caleb Rubio -[id number] [facility] 2020-02-01 2020-02-01 Outpatient R ALDARI [facility] [id number] Univers 08:15:00 08:15:00 NICK [facility] 2020-02-01 2020-02-01 Telemedici NIVIA QuinterosIT [id number] Univers 07:41:50 07:56:50 ne Visit Nick [facility] [id number] [facility] [id number] Alek as [id number] [place] [address] Branch 2019-07-27 2019-07-27 Outpatient R ALDAIR [facility] [id number] Univers 10:45:00 11:27:21 [facility] Results Test Description Test Time Test Comments Results Result Comments Source PROSTATIC SPECIFIC ANTIGEN 2021-01-23 16:41:06 Test Item Value Reference Range Interpretation Comme nts PSA (test code = 6.24 ng/mL See_Comment H [Automated message] The [id number]) system which ge nerated this result tra nsmitted reference range : <=4.00. The reference r meghan was not used to int erpret this result as ruby l/abnormal. CINDY (test code = CINDY) Biotin has been reported to cause a negative bias, interpret results relative to patient's use of biotin. Lab Interpretation (test Abnormal code = 73499-4) [facility] [id number] 16:41:06 Test Item Value Reference Range Interpretation Comments PSA (test code = 6.24 ng/mL See_Comment H [Automated [id number]) message] The system which generated this result transmitted reference range : <=4.00. The reference range was not used to interpret this result as normal/abnormal . CINDY (test code = CINDY) Biotin has been reported to cause a negative bias, interpret results relative to patient's use of biotin. Lab Interpretation Abnormal (test code = 83733-9) [facility] [id number] 12:05:24 Test Item Value Reference Range Interpretation Comments Glucose POC (test 68 mg/dL 70-115 L If you con accounts payable lead your code = Glucose POC) patient critically ill, the Magdalena-Accu Check Infrom II meter should not be used for Glucose determination. Draw a venous Glucose and send to the main Lab for analysis.
[2022-07-14 05:28] LABS: Absolute Lymphocytes (CBC) 0.4 K/uL (0.7-4.9); Hematocrit 40.9 % (39.6-49.0); Lymphocytes % 6.8 % (15.3-44.8); MCV 89.6 fL (80-100); MPV 7.8 fL (7.6-11.3); Protime INR 1.05; RBC Red Blood Cell Count 4.57 M/uL (4.33-5.43)
[2022-07-14] MEDS ORDERED: NA CHLORIDE 0.9% 1,000 ML ONE (05:29)
[2022-07-14] MEDS ORDERED: ONDANSETRON 4 MG/2 ML VIAL ONE (05:29)
[2022-07-14] MEDS ORDERED: MORPHINE 2 MG/ML SYR ONE (05:29)
[2022-07-14] MEDS ORDERED: dexAMETHasone 10 MG/ML VIAL ONE (05:29)
[2022-07-14 05:40] LABS: Albumin 3.7 g/dL (3.4-5.0); Bilirubin Direct 0.2 mg/dL (0-0.2); Bilirubin Total 0.7 mg/dL (0.2-1.0); Magnesium 2.2 mg/dL (1.8-2.4); Potassium 3.8 mmol/L (3.5-5.1); Protein, Total 7.5 g/dL (6.4-8.2); Troponin High Sensitivity 26.4 pg/mL (<58.9)
--- NOTE | 2022-07-14 06:39 | ER ---
Nurse's Notes [facility] Name: Qamar Campbell Age: 81 yrs Sex: Male : 1940 Arrival Date: 07/14/2022 Time: 04:07 Bed 8 Private MD: Diagnosis: Low back pain;Obesity, unspecified;Type 2 diabetes mellitus with hyperglycemia;Unspecified kidney failure-chronic Presentation: 07/14 04:08 Chief complaint: EMS states: Pt reports chronic back pain for the past month. Tonight jb4 it is progressively getting worse. Coronavirus screen: At this time, the client does not indicate any symptoms associated with coronavirus-19. Ebola Screen: No symptoms or risks identified at this time. Initial Sepsis Screen: Does the patient meet any 2 criteria? No. Patient's initial sepsis screen is negative. Does the patient have a suspected source of infection? No. Patient's initial sepsis screen is negative. Risk Assessment: Do you want to hurt yourself or someone else? Patient reports no desire to harm self or others. Onset of symptoms was July 14, 2022. Transition of care: patient was not received from another setting of care. 04:08 Method Of Arrival: EMS: [facility] jb4 04:08 Acuity: ELISSA 4 jb4 Historical: - Allergies: 04:10 No Known Allergies; jb4 - Home Meds: 04:10 Alprazolam Oral [Active]; Hydrocodone-Acetaminophen Oral [Active]; Metformin Oral jb4 [Active]; - PMHx: 04:10 Diabetes - NIDDM; Hypertension; Prostate Ca; jb4 - Immunization history:: Adult Immunizations up to date. - Social history:: Smoking status: Patient denies any tobacco usage or history of. - Family history:: not pertinent. Screenin:10 Abuse screen: Denies threats or abuse. Nutritional screening: No deficits noted. jb4 Tuberculosis screening: No symptoms or risk factors identified. Fall Risk Gait- Impaired (20 pts.). Total Solomon Fall Scale indicates No Risk (0-24 pts). Assessment: 04:30 General: Appears in no apparent distress. comfortable, Behavior is calm, cooperative, jb4 appropriate for age. Pain: Complains of pain in back Pain does not radiate. Pain currently is 3 out of 10 on a pain scale. Neuro: Level of Consciousness is awake, alert, obeys commands, Oriented to person, place, time, situation. Cardiovascular: Patient's skin is warm and dry. Respiratory: Airway is patent Respiratory effort is even, unlabored, Respiratory pattern is regular, symmetrical. GI: No signs and/or symptoms were reported involving the gastrointestinal system. : No signs and/or symptoms were reported regarding the genitourinary system. EENT: No signs and/or symptoms were reported regarding the EENT system. Derm: Skin is intact, Skin is pink, warm \T\ dry. Musculoskeletal: Circulation, motion, and sensation intact. Range of motion: intact in all extremities. 05:30 Reassessment: Patient appears in no apparent distress at this time. Patient and/or jb4 family updated on plan of care and expected duration. Pain level reassessed. Patient is alert, oriented x 3, equal unlabored respirations, skin warm/dry/pink. 06:08 Reassessment: Patient appears in no apparent distress at this time. Patient and/or jb4 family updated on plan of care and expected duration. Pain level reassessed. Patient is alert, oriented x 3, equal unlabored respirations, skin warm/dry/pink. 07:12 Reassessment: Patient appears in no apparent distress at this time. Patient and/or jb4 family updated on plan of care and expected duration. Pain level reassessed. Patient is alert, oriented x 3, equal unlabored respirations, skin warm/dry/pink. Vital Signs: 04:16 BP 146 / 96; Pulse 90; Resp 16; Temp 98.8(TE); Pulse Ox 95% on R/A; Weight 81.65 kg; jb4 Height 5 ft. 8 in. (172.72 cm) (R); 05:35 BP 130 / 53; Pulse 82; Resp 16; Pulse Ox 96% on R/A; jb4 06:15 BP 126 / 77; Pulse 77; Resp 16; Pulse Ox 94% on R/A; jb4 04:16 Body Mass Index 27.37 (81.65 kg, 172.72 cm) 4 ED Course: 04:07 Patient arrived in ED. 4 04:09 Christophe Irby MD is Attending Physician. [facility] 04:10 Triage completed. jb4 04:10 Arm band placed on right wrist. jb4 04:10 Patient has correct armband on for positive identification. Bed in low position. Call jb4 light in reach. Side rails up X 1. Client placed on continuous cardiac and pulse oximetry monitoring. NIBP monitoring applied. machine plaster mixer on. 04:16 Stefan Skinner, RN is Primary Nurse. jb4 05:00 Initial lab(s) drawn, by me, sent to lab. Inserted saline lock: 18 gauge in right jb4 antecubital area, using aseptic technique. Blood collected. 05:03 XRAY Chest (1 view) In Process Unspecified. EDMS 06:23 Chest Abd Pelvis Wo Con In Process Unspecified. EDMS 06:39 Miguel Denton MD is Referral Physician. landon 07:13 No provider procedures requiring assistance completed. IV discontinued, intact, jb4 bleeding controlled, No redness/swelling at site. Pressure dressing applied. Administered Medications: 05:41 Drug: NS 0.9% 500 ml Route: IV; Rate: bolus; Site: right antecubital; jb4 06:15 Follow up: Response: No adverse reaction; IV Status: Completed infusion; IV Intake: jb4 500ml 05:41 Drug: morphine 2 mg Route: IVP; Infused Over: 4 mins; Site: right antecubital; jb4 06:10 Follow up: Response: No adverse reaction; Marked relief of symptoms jb4 05:41 Drug: Zofran (Ondansetron) 4 mg Route: IVP; Site: right antecubital; jb4 06:10 Follow up: Response: No adverse reaction; Marked relief of symptoms jb4 05:41 Drug: Decadron - Dexamethasone 10 mg Route: IVP; Site: right antecubital; jb4 06:10 Follow up: Response: No adverse reaction; Marked relief of symptoms jb4 07:01 Drug: Valium (diazepam) 5 mg Route: PO; jb4 07:10 Follow up: Response: Medication administered at discharge. jb4 07:11 Not Given (Physician Discretion): NS 0.9% 1000 ml IV at 125 ml/hr continuous jb4 07:11 Not Given (Patient Refused): morphine 2 mg IVP once over 4 mins jb4 Medication: 06:15 VIS not applicable for this client. jb4 Intake: 06:15 IV: 500ml; Total: 500ml. jb4 Outcome: 06:39 Discharge ordered by . landon 07:13 Discharged to home via wheelchair. jb4 07:13 Condition: stable 07:13 Discharge instructions given to patient, family, Instructed on discharge instructions, follow up and referral plans. medication usage, Demonstrated understanding of instructions, follow-up care, medications, Prescriptions given X 3. 07:14 Patient left the ED. jb4 Signatures: Dispatcher [employer] EDChristophe Holcomb MD MD cha Bryson, James, RN RN jb4
--- NOTE | 2022-07-14 06:40 | EDPHYS ---
Physician Documentation [facility] Name: Qamar Campbell Age: 81 yrs Sex: Male : 1940 Arrival Date: 07/14/2022 Time: 04:07 Bed 8 Private MD: ZHENG Physician Christophe Irby HPI: 07/14 04:45 This 81 yrs old Male presents to ER via EMS with complaints of back pain, landon across back. 04:45 The patient presents with pain that is acute. The patient presents with pain that is landon acute, with no known mechanism of injury. The symptoms are located in the left mid back and right mid back. Onset: The symptoms/episode began/occurred this morning, today, yesterday. The pain does not radiate. Associated signs and symptoms: The patient has no apparent associated signs or symptoms. The problem was sustained from unknown cause. Modifying factors: The patient symptoms are alleviated by remaining still, the patient symptoms are aggravated by any movement. Severity of symptoms: At their worst the symptoms were mild, in the emergency department the symptoms are unchanged. The patient has experienced similar episodes in the past, a few times. Historical: - Allergies: 04:10 No Known Allergies; jb4 - Home Meds: 04:10 Alprazolam Oral [Active]; Hydrocodone-Acetaminophen Oral [Active]; Metformin Oral jb4 [Active]; - PMHx: 04:10 Diabetes - NIDDM; Hypertension; Prostate Ca; jb4 - Immunization history:: Adult Immunizations up to date. - Social history:: Smoking status: Patient denies any tobacco usage or history of. - Family history:: not pertinent. ROS: 04:45 Constitutional: Negative for fever, chills, and weight loss, Eyes: Negative for injury, landon pain, redness, and discharge, ENT: Negative for injury, pain, and discharge, Neck: Negative for injury, pain, and swelling, Cardiovascular: Negative for chest pain, palpitations, and edema, Respiratory: Negative for shortness of breath, cough, wheezing, and pleuritic chest pain, Abdomen/GI: Negative for abdominal pain, nausea, vomiting, diarrhea, and constipation, : Negative for injury, bleeding, discharge, and swelling, MS/Extremity: Negative for injury and deformity, Skin: Negative for injury, rash, and discoloration, Neuro: Negative for headache, weakness, numbness, tingling, and seizure, Psych: Negative for depression, anxiety, suicide ideation, homicidal ideation, and hallucinations, Allergy/Immunology: Negative for hives, rash, and allergies, Endocrine: Negative for neck swelling, polydipsia, polyuria, polyphagia, and marked weight changes, Hematologic/Lymphatic: Negative for swollen nodes, abnormal bleeding, and unusual bruising. 04:45 Back: Positive for decreased range of motion, pain at rest, pain with movement, of the left mid back and right mid back. Exam: 04:45 Constitutional: This is a well developed, well nourished patient who is awake, alert, landon and in no acute distress. Head/Face: Normocephalic, atraumatic. Eyes: Pupils equal round and reactive to light, extra-ocular motions intact. Lids and lashes normal. Conjunctiva and sclera are non-icteric and not injected. Cornea within normal limits. Periorbital areas with no swelling, redness, or edema. ENT: Nares patent. No nasal discharge, no septal abnormalities noted. Tympanic membranes are normal and external auditory canals are clear. Oropharynx with no redness, swelling, or masses, exudates, or evidence of obstruction, uvula midline. Mucous membranes moist. Neck: Trachea midline, no thyromegaly or masses palpated, and no cervical lymphadenopathy. Supple, full range of motion without nuchal rigidity, or vertebral point tenderness. No Meningismus. Chest/axilla: Normal chest wall appearance and motion. Nontender with no deformity. No lesions are appreciated. Cardiovascular: Regular rate and rhythm with a normal S1 and S2. No gallops, murmurs, or rubs. Normal PMI, no JVD. No pulse deficits. Respiratory: Lungs have equal breath sounds bilaterally, clear to auscultation and percussion. No rales, rhonchi or wheezes noted. No increased work of breathing, no retractions or nasal flaring. Abdomen/GI: Soft, non-tender, with normal bowel sounds. No distension or tympany. No guarding or rebound. No evidence of tenderness throughout. Male : Normal genitalia with no discharge or lesions. Skin: Warm, dry with normal turgor. Normal color with no rashes, no lesions, and no evidence of cellulitis. MS/ Extremity: Pulses equal, no cyanosis. Neurovascular intact. Full, normal range of motion. Neuro: Awake and alert, GCS 15, oriented to person, place, time, and situation. Cranial nerves II-XII grossly intact. Motor strength 5/5 in all extremities. Sensory grossly intact. Cerebellar exam normal. Normal gait. Psych: Awake, alert, with orientation to person, place and time. Behavior, mood, and affect are within normal limits. 04:45 Back: pain, that is mild, ROM is painful, normal spinal alignment noted, CVA tenderness, is absent, muscle spasm, is not present. 05:37 ECG was reviewed by the Attending Physician. [facility] Vital Signs: 04:16 BP 146 / 96; Pulse 90; Resp 16; Temp 98.8(TE); Pulse Ox 95% on R/A; Weight 81.65 kg; jb4 Height 5 ft. 8 in. (172.72 cm) (R); 05:35 BP 130 / 53; Pulse 82; Resp 16; Pulse Ox 96% on R/A; jb4 06:15 BP 126 / 77; Pulse 77; Resp 16; Pulse Ox 94% on R/A; jb4 04:16 Body Mass Index 27.37 (81.65 kg, 172.72 cm) jb4 MDM: 04:09 Patient medically screened. landon 04:48 Differential diagnosis: Abdominal Aortic Aneurysm arthritis, chronic back pain, Obesity landon Osteoporosis sprain, Ureterolithiasis. Data reviewed: vital signs, nurses notes, EMS record, lab test result(s), EKG, radiologic studies, CT scan, plain films. Data interpreted: property assessment monitor: rate is 90 beats/min, rhythm is regular, Pulse oximetry: on room air is 95 %. Test interpretation: by ED physician or midlevel provider: ECG, plain radiologic studies. Counseling: I had a detailed discussion with the patient and/or guardian regarding: the historical points, exam findings, and any diagnostic results supporting the discharge/admit diagnosis, lab results, radiology results, the need for outpatient follow up, for definitive care, a sugar chipper machine operator, a family practitioner. 07/14 04:45 Order name: Basic Metabolic Panel; Complete Time: 05:56 [facility] 07/14 04:45 Order name: CBC with Diff; Complete Time: 05:56 [facility] 07/14 04:45 Order name: LFT's; Complete Time: 05:56 [facility] 07/14 04:45 Order name: Magnesium; Complete Time: 05:56 [facility] 07/14 04:45 Order name: NT PRO-BNP; Complete Time: 05:56 [facility] 07/14 04:45 Order name: PT-INR; Complete Time: 05:56 [facility] 07/14 04:45 Order name: Troponin HS; Complete Time: 05:56 [facility] 07/14 04:45 Order name: XRAY Chest (1 view) [facility] 07/14 04:45 Order name: Lipase; Complete Time: 05:56 [facility] 07/14 04:45 Order name: CT Chest Abdomen Pelvis W/O Contrast [facility] 07/14 04:50 Order name: Chest Abd Pelvis Wo Con [facility] 07/14 04:45 Order name: EKG; Complete Time: 04:46 [facility] 07/14 04:45 Order name: Cardiac monitoring; Complete Time: 05:22 [facility] 07/14 04:45 Order name: EKG - Nurse/Tech; Complete Time: 05:22 [facility] 07/14 04:45 Order name: IV Saline Lock; Complete Time: 05:22 [facility] 07/14 04:45 Order name: Labs collected and sent; Complete Time: 05:22 [facility] 07/14 04:45 Order name: O2 Per Protocol; Complete Time: 05:00 [facility] 07/14 04:45 Order name: O2 Sat Monitoring; Complete Time: 05:00 [facility] EC:37 Rate is 82 beats/min. Rhythm is regular. QRS [place] is Normal. MN interval is normal. QRS landon interval is normal. QT interval is normal. No Q waves. T waves are Normal. No ST changes noted. Clinical impression: NSR w/ Non-specific ST/T Changes and No evidence of ischemia. Interpreted by me. Reviewed by me. Administered Medications: 05:41 Drug: NS 0.9% 500 ml Route: IV; Rate: bolus; Site: right antecubital; jb4 06:15 Follow up: Response: No adverse reaction; IV Status: Completed infusion; IV Intake: jb4 500ml 05:41 Drug: morphine 2 mg Route: IVP; Infused Over: 4 mins; Site: right antecubital; jb4 06:10 Follow up: Response: No adverse reaction; Marked relief of symptoms jb4 05:41 Drug: Zofran (Ondansetron) 4 mg Route: IVP; Site: right antecubital; jb4 06:10 Follow up: Response: No adverse reaction; Marked relief of symptoms jb4 05:41 Drug: Decadron - Dexamethasone 10 mg Route: IVP; Site: right antecubital; jb4 06:10 Follow up: Response: No adverse reaction; Marked relief of symptoms jb4 07:01 Drug: Valium (diazepam) 5 mg Route: PO; jb4 07:10 Follow up: Response: Medication administered at discharge. jb4 07:11 Not Given (Physician Discretion): NS 0.9% 1000 ml IV at 125 ml/hr continuous jb4 07:11 Not Given (Patient Refused): morphine 2 mg IVP once over 4 mins jb4 Disposition Summary: 07/14/22 06:39 Discharge Ordered Location: Home [facility] Problem: new landon Symptoms: have improved landon Condition: Stable landon Diagnosis - Low back pain landon - Obesity, unspecified landon - Type 2 diabetes mellitus with hyperglycemia landon - Unspecified kidney failure - chronic landon Followup: landon - With: Private Physician - When: 2 - 3 days - Reason: Recheck today's complaints, Continuance of care, Re-evaluation by your physician Followup: landon - With: - When: 2 - 3 days - Reason: Recheck today's complaints, Re-evaluation by your physician Discharge Instructions: - Discharge Summary Sheet landon - Acute Back Pain, Adult landon - Chronic Back Pain landon - Musculoskeletal Pain landon - Obesity, Adult landon - High-Fiber Diet landon - Chronic Back Pain, [id number] landon - Chronic Kidney Disease, Adult, [id number] [facility] Forms: - Medication Reconciliation Form landon - Thank You Letter landon - Antibiotic Education landon - Prescription Opioid Use [facility] Prescriptions: - Medrol (Royal) 4 mg Oral Tablets, Dose Pack - take 1 tablet by ORAL route as directed - follow package instructions; 1 landon packet; Refills: 0, Product Selection Permitted - Cyclobenzaprine 5 mg Oral Tablet - take 1 tablet by ORAL route 3 times per day As needed; 15 tablet; Refills: 0, [facility] Product Selection Permitted - Tylenol-Codeine #3 300 mg-30 mg Oral - take 1 tablet by ORAL route every 4-6 hours; 18 tablet; Refills: 0, Product landon Selection Permitted Signatures: Dispatcher [employer] EDChristophe Holcomb MD MD cha Bryson, James RN RN jb4 Corrections: (The following items were deleted from the chart) 07:12 04:45 Urine Dipstick-Ancillary ordered. landon jb4
[2022-07-14] MEDS ORDERED: DIAZEPAM 5 MG TABLET ONE (06:53)
[2022-07-14 07:22] VITALS: TEMP 98.8
[2022-07-14 07:34] VITALS: BP 126/77; O2SAT 94
--- NOTE | 2022-07-14 20:50 | RAD REPORT ---
EXAM DESCRIPTION: CT - Chest Abd Pelvis Wo Con - 07/14/2022 6:21 am TECHNIQUE: Computerized axial tomography of the chest abdomen and pelvis was performed without intra venous contrast. This study is performed without contrast and its sensitivity for thoracic, abdominal and pelvic pathology, including masses (lymph nodes and hepatic, pancreatic, and renal neoplasm), in flammation, abscess, free fluid, thrombosis, and infarction, is reduced without the benefit of intrav enous contrast. Automated exposure control, adjustment of mA and/or kV according to patient size, or iterative reconstruction dose optimization techniques were utilized. CLINICAL HISTORY: Pain COMPARISON: None . FINDINGS: Heart and pericardium: No pericardial effusion or thickening. Thoracic aorta: Normal caliber aorta. There is atherosclerotic calcification. Pulmonary vasculature: Normal caliber. Mediastinum: No enlarged thoracic lymph nodes. Lungs: 3 mm nodule in the lateral right lower lobe, axial image 28 series 202. No acute infiltrates . 3 mm right solid pulmonary nodule. No routine follow-up imaging is recommended per [employer]isch[employer]ie ty Guidelines. These guidelines do not apply to immunocompromised patients and patients with cancer. Follow up in pa tients with significant comorbidities as clinically warranted. For lung cancer screening, adhere to L remy-RADS guidelines. Reference: Radiology. 2017; 284(1):228-43. Pleural space: No effusion, thickening, or pneumothorax. Liver: Normal size and attenuation. Spleen: Normal size and attenuation. Gallbladder and biliary system: Normal. Pancreas: Normal. Adrenals: Normal. Kidneys: No hydroureteronephrosis or urolithiasis bilaterally. GI tract: Appendix is normal. No bowel obstruction or inflammation . Lymph nodes and mesentery: Normal. Vasculature: Normal caliber abdominal aorta. Bladder: Normal. Reproductive organs: Normal. Peritoneum: No free fluid or free air. Musculoskeletal structures: Multilevel moderate to severe thoracolumbar spine degenerative disc olivia es, with mild S type scoliosis. No acute fracture is identified.. Other: Small fat-containing left inguinal hernia. Small fat-containing umbilical hernia. IMPRESSION: No acute abnormality is identified. Multilevel thoracolumbar spine degenerative disc changes. No acute fracture is identified.. Electronically signed by: Maria C Villalba MD 07/14/2022 6:26 AM CDT Due to temporary technical issues with the PACS/Fluency reporting system, reports are being signed by the in house radiologists without review as a courtesy to insure prompt reporting. The interpreting radiologist is fully responsible for the content of the report.
--- NOTE | 2022-07-15 12:38 | RAD REPORT ---
EXAM DESCRIPTION: RAD - Chest Single View - 07/14/2022 5:01 am CLINICAL HISTORY: The patient is 81 years old and is Male; COUGH TECHNIQUE: Frontal view of the chest. COMPARISON: No relevant prior studies available. FINDINGS: LUNGS: No appreciated focal consolidation. PLEURAL SPACE: Unremarkable. No pleural effusion. No pneumothorax. HEART: Prominence of the cardiomediastinal silhouette, likely exaggerated secondary to portable francisco hnique, positioning, and patient body habitus. MEDIASTINUM: See above. BONES/JOINTS: No acute osseous abnormality. UPPER ABDOMEN: Right hemidiaphragm elevation, of uncertain chronicity. OTHER: Surgical clips noted in the left axilla. IMPRESSION: 1. Right hemidiaphragm elevation, of uncertain chronicity. 2. Otherwise, no acute cardiopulmonary abnormality. Electronically signed by: Homer Gomez MD 07/14/2022 5:24 AM CDT Due to temporary technical issues with the PACS/Fluency reporting system, reports are being signed by the in house radiologists without review as a courtesy to insure prompt reporting. The interpreting radiologist is fully responsible for the content of the report.
--- NOTE | 2022-07-16 06:03 | EKG ---
Test Date: 2022-07-14 Test Time: 05:18:25 [employer] Machine: [employer]NOR MEASUREMENT RESULTS: Intervals: Rate: 82 NM: 182 QRSD: 116 QT: 384 QTc: 448 [place]: P: 54 NM: 182 QRS: 5 T: 39 INTERPRETIVE STATEMENTS: Normal sinus rhythm Incomplete right bundle branch block Nonspecific ST and T wave abnormality Abnormal ECG Compared to ECG 09/15/2021 07:47:39 Incomplete right bundle-branch block now present ST (T wave) deviation now present Electronically Signed On 07-16-22 06:00:09 CDT by Miguel Denton
== END 2022-07-14 07:14 | disposition home or self-care (01) ==
LOC: ER 04:04
DX: M54.50 Low back pain, unspecified (principal); E11.65 Type 2 diabetes mellitus with hyperglycemia; E11.22 Type 2 diabetes mellitus with diabetic chronic kidney disease; I12.9 Hypertensive chronic kidney disease with stage 1 through stage 4 chronic kidney disease, or unspecified chronic kidney disease; N18.9 Chronic kidney disease, unspecified; E66.9 Obesity, unspecified; Z68.27 Body mass index [BMI] 27.0-27.9, adult; Z85.46 Personal history of malignant neoplasm of prostate
CPT/HCPCS: 93005; 85025; 80048; 36415; 83735; 85610; 80076; 84484; 83690; 83880; 71250; 74176; 71045; J1100; J2270; J7030; J2405; 96361; 96374; 96375; 99284

== ENCOUNTER 2022-07-17 16:27 | Observation (INO) | payer OTHER ==
--- OUTSIDE RECORDS SUMMARY | 2022-07-17 16:30 | XMS REPORT | Continuity of Care Document ---
:1940 Author Organization [facility] t Address [address] [place] [address] Care Team Providers Name Role Phone John Nixon Attending Clinician Unavailable TL PERSAUD Attending Clinician Unavailable EVAN BOSCH Attending Clinician Unavailable ANABELA JIMENEZ Attending Clinician Unavailable Nick Quinteros MD Attending Clinician [facility] Attending Clinician Unavailable NICK QUINTEROS Attending Clinician Unavailable ISA GALO Attending Clinician Unavailable Caleb Rubio Attending Clinician Unavailable Caleb Rubio Attending Clinician Unavailable Caleb Rubio Admitting Clinician Unavailable Payers Payer Name Policy Type Policy Number Effective Date Expiration Date S saad MEDICARE PART A [id number] 2020 2020 AND B 00:00:00 00:00:00 [facility] [id number] 2020 00:00:00 [facility] Medicare 53 [id number] Common Spir it Complete [facility] Problems Condition Condition Condition Status Onset Resolution Last Treating Co mments Source Name Details Category Date Date Treatment Clinician Date [id number] BPH loc w Problem Active Com mon urin Spirit obs/LUTS - [facility] [id number] Prostate Problem Active Comm on cancer [facility] [id number] Urge Problem Active Common incontinen Spirit ce [facility] No known No known Disease Unive rs active active ity of problems problems [facility] Allergies, Adverse Reactions, Alerts Allergy Allergy Status Severity Reaction(s) Onset Inactive Treating Comm ents Source Name Type Date Date Clinician NO KNOWN Drug Active Nivia ALLERGYNES Class ity of [place] [facility] No Known Drug Active [facility] Social History Social Habit Start Date Stop Date Quantity Comments Source History of Common Spirit - Tobacco Use [facility] Sex Assigned At Common Sp qiana - [facility] Alcohol intake 2021-01-23 2021-01-23 Current University 00:00:00 00:00:00 non-drinker of [facility] [place] alcohol Branch (finding) Tobacco use and 2021-01-23 2021-01-23 Never used Universit y of exposure 00:00:00 00:00:00 [facility] Smoking Status Start Date Stop Date Source Former Smoker 2022-04-23 00:00:00 2022-04-23 00:00:00 Common S pirit - [facility] Ce nter Current every day 2021-01-23 00:00:00 [facility] smoker Medical Branch Medications Ordered Filled Start [...] y of 00:00: mouth [place] 00 daily. [facility] ALPRAZolam 2018-0 Yes .5{tbl} Take 0.5 Univers 1 mg tablet 2-24 tablets by it y of 00:00: mouth [place] 00 daily. [facility] ALPRAZolam 2018-0 Yes .5{tbl} Take 0.5 Univers 1 mg tablet 2-24 tablets by it y of 00:00: mouth [place] 00 daily. [facility] ALPRAZolam 2018-0 Yes .5{tbl} Take 0.5 Univers 1 mg tablet 2-24 tablets by it y of 00:00: mouth [place] 00 daily. [facility] ALPRAZolam 2018-0 Yes .5{tbl} Take 0.5 Univers 1 mg tablet 2-24 tablets by it y of 00:00: mouth [place] 00 daily. [facility] ALPRAZolam 2018-0 Yes .5{tbl} Take 0.5 Univers 1 mg tablet 2-24 tablets by it y of 00:00: mouth [place] 00 daily. [facility] ALPRAZolam 2018-0 Yes .5{tbl} Take 0.5 Univers 1 mg tablet 2-24 tablets by it y of 00:00: mouth [place] 00 daily. [facility] ALPRAZolam 2018-0 Yes .5{tbl} Take 0.5 Univers 1 mg tablet 2-24 tablets by it y of 00:00: mouth [place] 00 daily. [facility] No Known No Known No Common Medications Medications [facility] Immunizations Ordered Filled Immunization Date Status Comments [facility] Immunization Name Name SARS-COV-2 COVID-19 2020-12-20 Completed Unive rsity of PFIZER VACCINE 00:00:00 [facility] SARS-COV-2 COVID-19 2020-12-20 Completed Unive rsity of PFIZER VACCINE 00:00:00 [facility] SARS-COV-2 COVID-19 2020-12-20 Completed Unive rsity of PFIZER VACCINE 00:00:00 [facility] SARS-COV-2 COVID-19 2020-12-20 Completed Unive rsity of PFIZER VACCINE 00:00:00 [facility] SARS-COV-2 COVID-19 2020-12-20 Completed Unive rsity of PFIZER VACCINE 00:00:00 [facility] SARS-COV-2 COVID-19 2020-12-20 Completed Unive rsity of PFIZER VACCINE 00:00:00 [facility] SARS-COV-2 COVID-19 2020-12-20 Completed Unive rsity of PFIZER VACCINE 00:00:00 [facility] SARS-COV-2 COVID-19 2020-12-20 Completed Unive rsity of PFIZER VACCINE 00:00:00 [facility] SARS-COV-2 COVID-19 2020-12-20 Completed Unive rsity of PFIZER VACCINE 00:00:00 [facility] SARS-COV-2 COVID-19 2020-12-20 Completed Unive rsity of PFIZER VACCINE 00:00:00 [facility] SARS-COV-2 COVID-19 2020-11-29 Completed Unive rsity of PFIZER VACCINE 00:00:00 [facility] SARS-COV-2 COVID-19 2020-11-29 Completed Unive rsity of PFIZER VACCINE 00:00:00 [facility] SARS-COV-2 COVID-19 2020-11-29 Completed Unive rsity of PFIZER VACCINE 00:00:00 [facility] SARS-COV-2 COVID-19 2020-11-29 Completed Unive rsity of PFIZER VACCINE 00:00:00 [facility] SARS-COV-2 COVID-19 2020-11-29 Completed Unive rsity of PFIZER VACCINE 00:00:00 [facility] SARS-COV-2 COVID-19 2020-11-29 Completed Unive rsity of PFIZER VACCINE 00:00:00 [facility] SARS-COV-2 COVID-19 2020-11-29 Completed Unive rsity of PFIZER VACCINE 00:00:00 [facility] SARS-COV-2 COVID-19 2020-11-29 Completed Unive rsity of PFIZER VACCINE 00:00:00 [facility] SARS-COV-2 COVID-19 2020-11-29 Completed Unive rsity of PFIZER VACCINE 00:00:00 [facility] SARS-COV-2 COVID-19 2020-11-29 Completed Unive rsity of PFIZER VACCINE 00:00:00 [facility] Vital Signs Vital Name Observation Time Observation Value Comments Source height 2022-04-23 14:30:00 67 [in_i] [facility] weight 2022-04-23 14:30:00 182.8 [lb_av] [facility] temperature 2022-04-23 14:30:00 97.8 [degF] [facility] bmi 2022-04-23 14:30:00 28.63 kg/m2 [facility] oximetry 2022-04-23 14:30:00 94 % [facility] respiratory rate 2022-04-23 14:30:00 17 /min Comm on [facility] blood pressure 2022-04-23 14:30:00 162 mm[Hg] [facility] systolic [facility] blood pressure 2022-04-23 14:30:00 72 mm[Hg] [facility] diastolic [facility] Systolic blood 2021-01-23 13:48:00 165 mm[Hg] Univer [facility]ity [facility] Diastolic blood 2021-01-23 13:48:00 73 mm[Hg] Unive rsity of [facility] Heart rate 2021-01-23 13:48:00 76 /min [facility] Body temperature 2021-01-23 13:48:00 36.39 Yesika [facility] 2021-01-23 13:48:00 18 /min [facility] Body height 2021-01-23 13:48:00 172.7 cm [facility] Body weight 2021-01-23 13:48:00 85.957 kg [facility] BMI 2021-01-23 13:48:00 28.81 kg/m2 [facility] Height/Length 2021-09-30 12:12:10 172.72 cm Measured Weight Dosing 2021-09-30 12:12:10 81.64 kg Height/Length 2021-09-30 12:11:53 172.72 cm Measured Weight Dosing 2021-09-30 12:11:53 81.64 kg Height/Length 2021-09-30 12:11:42 172.72 cm Measured Weight Dosing 2021-09-30 12:11:42 81.64 kg Height/Length 2020-05-16 12:43:20 Measured Weight Dosing 2020-05-16 12:43:20 Procedures Procedure Date / Time Performed Performing Clinician Sourc e PROSTATIC SPECIFIC 2021-01-23 14:34:00 Nick Quinteros [facility] Encounters Start End Encounter Admission Attending Care Care Encounter Source Date/Time Date/Time Type Type Clinicians Facility Department ID 2022-04-23 Outpatient Nixon, [facility] [id number] Common [facility] 2022-04-07 Outpatient [facility] [id number] [place] 06:15:[id number] [facility] 2021-09-01 Outpatient ACHOR, [facility] [id number] [place] 01:05[facility] [id number] [place] 11:17:52 [facility] 2021-06-24 Outpatient BOSCH, [facility] [id number] [place] 11:41:[address] [facility] 2021-06-16 Outpatient BARBARA, [facility] [id number] [place] 11:57:29 On license of [facility] 2021-06-11 Outpatient BARBARA, [facility] [id number] [place] [facility]-23 2022-04-23 OFFICE [facility] [id number] Co mmon 00:00:00 00:00:00 VISIT NEW Spir it PT LEVEL 3 - [facility] 2021-02-12 2021-02-12 Telephone LELO Quinteros [id number] Univers 00:00:00 00:00:00 [facility] [id number] i ty [facility] [id number] Alek as [id number] [place] [address] Branch 2021-01-24 2021-01-24 Telephone LELO Quinteros [id number] Univers 00:00:00 00:00:00 [facility] [id number] i ty of [facility] [id number] Alek as [id number] [facility] 204 Branch 2021-01-23 2021-01-23 Ocular Care Technician [facility] UNIVERSIT [id number] Univers 09:25:30 09:29:17 Visit Nick Quinteros [facility] 350. 1.13.10 ity of [id number] [id number] [facility] 316 Branch 2021-01-23 2021-01-23 Office Aldair [facility] [id number] Univers 08:39:05 09:26:37 Visit Nick [facility] [id number] i ty of [facility] [id number] Alek as [id number] [facility] [address] [place] 2021-01-23 2021-01-23 Outpatient R [facility] [id number] Univers 09:00:00 09:00:00 [facility] 2021-01-23 2021-01-23 Telephone Aldair [facility] [id number] Univers 00:00:00 00:00:00 [facility] [id number] i ty of [facility] [id number] Alek as [id number] [facility] 204 Branch 2020-12-20 2020-12-20 Outpatient Issac [facility] [id number] Univers 14:10:00 14:10:00 [facility] 2020-11-29 2020-11-29 Outpatient Issac [facility] [id number] Univers 14:10:00 14:10:00 [facility] 2020-05-16 2020-05-16 Outpatient 3 Caleb Rubio [facility] [id number] St. 10:47:00 23:59:00 Caleb Rubio [facility] 2020-05-16 2020-05-16 Outpatient 3 Caleb Rubio [facility] [id number] St. 10:47:00 10:47:00 Caleb Rubio -[id number] [facility] 2020-02-01 2020-02-01 Outpatient R [facility] [id number] Univers 08:15:00 08:15:00 NICK [facility] 2020-02-01 2020-02-01 Telemedici NIVIA QuinterosIT [id number] Univers 07:41:50 07:56:50 ne Visit [id number] [id number] Alek as [id number] [place] [address] Branch 2019-07-27 2019-07-27 Outpatient R [facility] [id number] Univers 10:45:00 11:27:21 [facility] Results Test Description Test Time Test Comments Results Result Comments Source PROSTATIC SPECIFIC ANTIGEN 2021-01-23 16:41:06 Test Item Value Reference Range Interpretation Comme nts PSA (test code = 6.24 ng/mL See_Comment H [Automated message] The [id number]) system which ge nerated this result tra nsmitted reference range : <=4.00. The reference r meghan was not used to int erpret this result as ruby l/abnormal. CINDY (test code = CINDY) Biotin has been reported to cause a negative bias, interpret results relative to patient's use of biotin. Lab Interpretation (test Abnormal code = 53514-1) [facility] [place] [facility] ResourcesPROSTATIC SPECIFIC [id number] 16:41:06 Test Item Value Reference Range Interpretation Comments PSA (test code = 6.24 ng/mL See_Comment H [Automated [id number]) message] The system which generated this result transmitted reference range : <=4.00. The reference range was not used to interpret this result as normal/abnormal . CINDY (test code = CINDY) Biotin has been reported to cause a negative bias, interpret results relative to patient's use of biotin. Lab Interpretation Abnormal (test code = 84457-1) [facility] [id number] 12:05:24 Test Item Value Reference Range Interpretation Comments Glucose POC (test 68 mg/dL 70-115 L If you con control systems developer your code = Glucose POC) patient critically ill, the Magdalena-Accu Check Infrom II meter should not be used for Glucose determination. Draw a venous Glucose and send to the main Lab for analysis.
[2022-07-17 17:01] LABS: Absolute Lymphocytes (CBC) 0.7 K/uL (0.7-4.9); Hematocrit 48.1 % (39.6-49.0); Lymphocytes % 13.4 % (15.3-44.8); MCV 89.9 fL (80-100); MPV 7.8 fL (7.6-11.3); RBC Red Blood Cell Count 5.35 M/uL (4.33-5.43)
[2022-07-17 17:05] LABS: Protime INR 0.95
[2022-07-17 17:16] LABS: Bilirubin Total 0.6 mg/dL (0.2-1.0); Magnesium 2.5 mg/dL (1.8-2.4); Protein, Total 8.1 g/dL (6.4-8.2)
--- NOTE | 2022-07-17 17:22 | RAD REPORT ---
EXAM DESCRIPTION: César Single View07/17/2022 5:04 pm CLINICAL HISTORY: Cough COMPARISON: July 24, 2022 FINDINGS: The lungs appear clear of acute infiltrate. The heart is normal size Widening of the right AC joint presumably chronic strain of the ligament
[2022-07-17 17:23] LABS: SARS-CoV-2 Antigen Rapid Res Negative (Negative)
--- NOTE | 2022-07-17 18:10 | RAD REPORT ---
EXAM DESCRIPTION: CT - Head C Spine Mpr Wo Con - 07/17/2022 5:52 pm CLINICAL HISTORY: Head and neck injury status post fall. Head and neck pain COMPARISON: 2019 TECHNIQUE: Computed axial tomography of the head and cervical spine was obtained. Sagittal and coronal reconstruction was performed. All CT scans are performed using dose optimization technique as appropriate and may include automated exposure control or mA/KV adjustment according to patient size. FINDINGS: An intracranial bleed is not seen. The ventricles are normal in caliber. Small low-density area medial right occipital lobe. An extra-axial fluid collection is not noted.Fluid within the visualized sinuses and mastoids is not seen A cervical fracture is not visualized. No dislocation is noted. Spondylosis cervical spine IMPRESSION: Small low-density area right occipital lobe. This may represent an acute infarct or volu me averaging of CSF. If clinically indicated further evaluation with MRI could be obtained A cervical fracture is not visualized.
--- NOTE | 2022-07-17 18:13 | RAD REPORT ---
EXAM DESCRIPTION: CT - Chest For Pe Angio - 07/17/2022 6:01 pm CLINICAL HISTORY: sob COMPARISON: July 24, 2022 TECHNIQUE: Dynamically enhanced axial 3 mm thick images of the chest were obtained during administra tion of <100> mL Isovue 370 IV contrast. Coronal and oblique reconstruction images were generated and reviewed. Exam utilizes a protocol for optimal evaluation of pulmonary arterial tree. Maximum intensity projections 3D imaging was utilized All CT scans are performed using dose optimization technique as appropriate and may include automated exposure control or mA/KV adjustment according to patient size. FINDINGS: A pulmonary embolus is not seen. A thoracic aortic aneurysm is not noted. A pleural effusion is not seen. A pericardial effusion is not seen. A lung consolidation is not present. IMPRESSION: Negative for a pulmonary embolism.
[2022-07-17] MEDS ORDERED: NA CHLORIDE 0.9% 1,000 ML ONE (18:31)
[2022-07-17] MEDS ORDERED: Acetylcysteine 6000mg/30mL IV ONE (18:31)
[2022-07-17] MEDS ORDERED: NA CHLORIDE 0.9% 50 ML IV ONE (18:41)
--- NOTE | 2022-07-17 19:10 | ER ---
Nurse's Notes [facility] Name: Qamar Campbell Age: 81 yrs Sex: Male : 1940 Arrival Date: 07/17/2022 Time: 16:29 Bed 18 Private MD: Diagnosis: Influenza due to identified novel influenza A virus;Weakness;Volume depletion, unspecified Presentation: 07/17 16:46 Chief complaint: Patient states: Pt was sent to ED from Dr Nixon's office due to fall; pt vg1 appears to have SOB and skin tear to Right elbow and Left forearm. Coronavirus screen: Vaccine status: Patient reports receiving the 2nd dose of the covid vaccine. Client denies travel out of the [place] in the last 14 days. Ebola Screen: Patient negative for fever greater than or equal to 101.5 degrees Fahrenheit, and additional compatible Ebola Virus Disease symptoms. Initial Sepsis Screen: Does the patient meet any 2 criteria? No. Patient's initial sepsis screen is negative. Does the patient have a suspected source of infection? No. Patient's initial sepsis screen is negative. Risk Assessment: Do you want to hurt yourself or someone else? Patient reports no desire to harm self or others. Onset of symptoms was July 17, 2022. 16:46 Method Of Arrival: Wheelchair vg1 16:46 Acuity: ELISSA 3 vg1 Triage Assessment: 16:49 General: Appears in no apparent distress. uncomfortable, Behavior is calm, cooperative. vg1 Neuro:. 16:50 Respiratory: Airway is patent Respiratory effort is even, labored, Respiratory pattern vg1 is tachypnea Breath sounds with rales bilaterally. Historical: - Allergies: 16:49 No Known Allergies; vg1 - Home Meds: 16:49 Hydrocodone-Acetaminophen Oral [Active]; vg1 - PMHx: 16:49 Diabetes - NIDDM; Hypertension; PROSTATE CA; vg1 - Immunization history:: Client reports receiving the 2nd dose of the Covid vaccine. - Social history:: Smoking status: Patient/guardian denies using tobacco, the patient reports quitting approximately 30 years ago. Screenin:56 Abuse screen: Denies threats or abuse. Denies injuries from another. Nutritional mb8 screening: No deficits noted. Tuberculosis screening: No symptoms or risk factors identified. Fall Risk Fall in past 12 months (25 points). Secondary diagnosis (15 points) IV access (20 points). Ambulatory Aid- None/Bed Rest/Nurse Assist (0 pts). Gait- Weak (10 pts.). Mental Status- Oriented to own ability (0 pts). Total Solomon Fall Scale indicates High Risk Score (45 or more points). Fall prevention measures have been instituted. Side Rails Up X 2 Family Present and informed to notify staff if the need to leave the bedside As available patient and family educated on Fall Prevention Program and Strategies. Assessment: 16:56 Pain: Denies pain. Respiratory: Reports shortness of breath cough that is Airway is mb8 patent Respiratory effort is even, unlabored, Respiratory pattern is regular, symmetrical, Breath sounds with crackles bilaterally. 17:46 Reassessment: No changes from previously documented assessment. Patient and/or family mb8 updated on plan of care and expected duration. Pain level reassessed. Patient is alert, oriented x 3, equal unlabored respirations, skin warm/dry/pink. 18:49 Reassessment: Patient and/or family updated on plan of care and expected duration. Pain mb8 level reassessed. Patient is alert, oriented x 3, equal unlabored respirations, skin warm/dry/pink. 19:20 General: Appears in no apparent distress. comfortable, Behavior is calm, cooperative. tp1 Pain: Denies pain. Cardiovascular: Patient's skin is warm and dry. Respiratory: Airway is patent Respiratory effort is even, unlabored. Derm: Skin is pink, warm \T\ dry. Musculoskeletal: Circulation, motion, and sensation intact. 19:20 Neuro: Level of Consciousness is awake, alert, obeys commands, Oriented to person, tp1 place, time, situation. 19:24 Reassessment: PT voiced need to urinate. assisted PT with urinal. PT unable to urinate. tp1 Neuro: Level of Consciousness is awake, alert, obeys commands, Oriented to person, place, time, situation. 19:24 Reassessment: skin tear to the right elbow covered with gauze and coband. tp1 20:03 Reassessment: report given to Jayne COFFEY. tp1 Vital Signs: 16:46 BP 126 / 87; Pulse 82; Resp 28; Temp 98.6; Pulse Ox 94% on R/A; Weight 81.65 kg; Height vg1 5 ft. 7 in. (170.18 cm); 17:45 BP 107 / 90; mb8 18:48 BP 160 / 73; Pulse 80; Resp 18; Pulse Ox 95% on R/A; mb8 16:46 Body Mass Index 28.19 (81.65 kg, 170.18 cm) vg1 Vitals: 18:48 Cardiac Rhythm Assessment Sinus rhythm. mb8 ED Course: 16:29 Patient arrived in ED. rg4 16:29 Myriam Gu FNP-C [facility]. snw 16:29 Salinas Zamora MD is Attending Physician. snw 16:43 Chemo Wood, RN is Primary Nurse. mb8 16:49 Triage completed. vg1 16:50 Arm band placed on. vg1 16:55 Inserted saline lock: 20 gauge in right antecubital area, using aseptic technique. mb8 Blood collected. 16:57 Patient has correct armband on for positive identification. Placed in gown. Bed in low mb8 position. Call light in reach. Side rails up X2. Client placed on continuous cardiac and pulse oximetry monitoring. NIBP monitoring applied. hall monitor on. 16:57 No provider procedures requiring assistance completed. mb8 17:05 Chest Single View XRAY In Process Unspecified. EDMS 17:54 CT Head C Spine In Process Unspecified. EDMS 18:03 CT Chest For PE Angio In Process Unspecified. EDMS 19:09 Lamine Gilliam MD is Hospitalizing Provider. snw 19:28 Primary Nurse role handed off by Chemo Wood, RN jl7 20:04 Patient admitted, IV remains in place. tp1 Administered Medications: 18:48 Drug: NS 0.9% 1000 ml Route: IV; Rate: 75 ml/hr; Site: right antecubital; mb8 20:04 Follow up: IV Status: Infusion continued upon admission tp1 18:48 Drug: Acetylcysteine 600 mg Route: IV; Rate: calculated rate; Site: right antecubital; mb8 19:19 Follow up: IV Status: Completed infusion tp1 20:04 Follow up: Response: No adverse reaction tp1 Medication: 16:56 VIS not applicable for this client. mb8 Outcome: 19:10 Decision to Hospitalize by Provider. snw 20:16 Admitted to Med/surg accompanied by tech, via wheelchair, room 222, with chart, Report tp1 called to Jayne 20:16 Condition: good 20:16 Discharge instructions given to patient, family, Instructed on the need for admit, Demonstrated understanding of instructions. 20:17 Patient left the ED. tp1 Signatures: Dispatcher [employer] EDMS Myriam Gu, BARBARA-C MANUFACTURING TEAM MEMBER-Jeanie Rowan4 Iwona Pereira RN RN jl7 Soraya Mejia RN RN aaron1 Tianna Lobo RN RN tp1 Chemo Wood RN RN mb8 Corrections: (The following items were deleted from the chart) 20:04 20:02 Reassessment: tp1 tp1
--- NOTE | 2022-07-17 19:11 | EDPHYS ---
Physician Documentation [facility] Name: Qamar Campbell Age: 81 yrs Sex: Male : 1940 Arrival Date: 07/17/2022 Time: 16:29 Bed 18 Private MD: ED Physician Salinas Zamora HPI: 07/17 16:52 This 81 yrs old Male presents to ER via Wheelchair with complaints of Weakness, snw Confusion. 16:52 falling a lot in the past week. Onset: The symptoms/episode began/occurred gradually, 5 snw day(s) ago, and became persistent. Severity of symptoms: At their worst the symptoms were moderate. It is unknown whether or not the patient has had similar symptoms in the past. The patient has been recently seen by a physician: the patient's primary care provider, Dr. Nixon earlier today, with similar presenting complaints, and was sent to the [facility] Emergency Department for further evaluation. Historical: - Allergies: 16:49 No Known Allergies; vg1 - Home Meds: 16:49 Hydrocodone-Acetaminophen Oral [Active]; vg1 - PMHx: 16:49 Diabetes - NIDDM; Hypertension; PROSTATE CA; vg1 - Immunization history:: Client reports receiving the 2nd dose of the Covid vaccine. - Social history:: Smoking status: Patient/guardian denies using tobacco, the patient reports quitting approximately 30 years ago. ROS: 16:51 Eyes: Negative for injury, pain, redness, and discharge, ENT: Negative for injury, snw pain, and discharge, Neck: Negative for injury, pain, and swelling, Cardiovascular: Negative for chest pain, palpitations, and edema. 16:51 Abdomen/GI: Negative for abdominal pain, nausea, vomiting, diarrhea, and constipation, Back: Negative for injury and pain, : Negative for injury, bleeding, discharge, and swelling, MS/Extremity: Negative for injury and deformity, Skin: Negative for injury, rash, and discoloration, Neuro: Negative for headache, weakness, numbness, tingling, and seizure. 16:51 Constitutional: Positive for falls. 16:51 Respiratory: Positive for cough, with no reported sputum. Exam: 16:48 Head/Face: Normocephalic, atraumatic. Eyes: Pupils equal round and reactive to light, snw extra-ocular motions intact. Lids and lashes normal. Conjunctiva and sclera are non-icteric and not injected. Cornea within normal limits. Periorbital areas with no swelling, redness, or edema. ENT: Nares patent. No nasal discharge, no septal abnormalities noted. Tympanic membranes are normal and external auditory canals are clear. Oropharynx with no redness, swelling, or masses, exudates, or evidence of obstruction, uvula midline. Mucous membranes moist. Neck: Trachea midline, no thyromegaly or masses palpated, and no cervical lymphadenopathy. Supple, full range of motion without nuchal rigidity, or vertebral point tenderness. No Meningismus. Chest/axilla: Normal chest wall appearance and motion. Nontender with no deformity. No lesions are appreciated. Cardiovascular: Regular rate and rhythm with a normal S1 and S2. No gallops, murmurs, or rubs. Normal PMI, no JVD. No pulse deficits. 16:48 Abdomen/GI: Soft, non-tender, with normal bowel sounds. No distension or tympany. No guarding or rebound. No evidence of tenderness throughout. Back: No spinal tenderness. No costovertebral tenderness. Full range of motion. 16:48 Neuro: Awake and alert, GCS 15, oriented to person, place, time, and situation. Cranial nerves II-XII grossly intact. Motor strength 5/5 in all extremities. Sensory grossly intact. Cerebellar exam normal. Normal gait. 16:48 Constitutional: The patient appears awake, frail, skin tears at his elbows bilat, bleeding controlled 16:48 Respiratory: the patient does not display signs of respiratory distress, Respirations: prolonged exhalation, shallow respirations, tachypnea, Breath sounds: rhonchi, that are severe, are heard diffusely, increased tactile fremitus. 16:48 Skin: Appearance: Color: normal in color, injury, avulsion(s), a very small of the elbows. Vital Signs: 16:46 BP 126 / 87; Pulse 82; Resp 28; Temp 98.6; Pulse Ox 94% on R/A; Weight 81.65 kg; Height vg1 5 ft. 7 in. (170.18 cm); 17:45 BP 107 / 90; mb8 18:48 BP 160 / 73; Pulse 80; Resp 18; Pulse Ox 95% on R/A; mb8 16:46 Body Mass Index 28.19 (81.65 kg, 170.18 cm) vg1 MDM: 16:36 Patient medically screened. snw 18:23 Data reviewed: vital signs, nurses notes. Data interpreted: Pulse oximetry: on room air snw is 94 %. Interpretation: hypoxia. Plan: O2 by NC applied. Counseling: I had a detailed discussion with the patient and/or guardian regarding: the historical points, exam findings, and any diagnostic results supporting the discharge/admit diagnosis, lab results, radiology results, the need for further work-up and treatment in the hospital. Physician consultation: Margareth Galindo PA-C was called at 18:24, regarding admission, and will see patient in ED. 07/17 16:47 Order name: Blood Culture Adult (2) snw 07/17 16:47 Order name: CBC with Diff; Complete Time: 17:09 snw 07/17 16:47 Order name: CMP; Complete Time: 17:17 snw 07/17 16:47 Order name: Lactate; Complete Time: 17:34 snw 07/17 16:47 Order name: Protime (+inr); Complete Time: 17:09 snw 07/17 16:47 Order name: Ptt, Activated; Complete Time: 17:09 snw 07/17 16:47 Order name: Chest Single View XRAY; Complete Time: 17:34 snw 07/17 16:47 Order name: CT Head C Spine; Complete Time: 18:12 snw 07/17 16:47 Order name: Flu; Complete Time: 17:57 snw 07/17 16:47 Order name: SARS RAPID; Complete Time: 17:34 snw 07/17 17:03 Order name: Magnesium; Complete Time: 17:17 EDMS 07/17 17:35 Order name: CT Chest For PE Angio; Complete Time: 18:17 snw 07/17 18:18 Order name: MRI Stroke Protocol snw 07/17 16:47 Order name: Cardiac monitoring; Complete Time: 17:13 snw 07/17 16:47 Order name: EKG - Nurse/Tech; Complete Time: 17:13 snw 07/17 16:47 Order name: IV Saline Lock - Large Bore; Complete Time: 16:58 snw 07/17 16:47 Order name: Labs collected and sent; Complete Time: 16:58 snw 11/04 16:47 Order name: O2 Per Protocol; Complete Time: 16:58 snw 07/17 16:47 Order name: O2 Sat Monitoring; Complete Time: 16:58 snw 07/17 16:47 Order name: Vital Signs; Complete Time: 16:58 snw EC:13 Rate is 89 beats/min. Rhythm is regular. ST Segment is elevated in leads aVR, V1. snw Clinical impression: NSR w/ Non-specific ST/T Changes. Administered Medications: 18:48 Drug: NS 0.9% 1000 ml Route: IV; Rate: 75 ml/hr; Site: right antecubital; mb8 20:04 Follow up: IV Status: Infusion continued upon admission tp1 18:48 Drug: Acetylcysteine 600 mg Route: IV; Rate: calculated rate; Site: right antecubital; mb8 19:19 Follow up: IV Status: Completed infusion tp1 20:04 Follow up: Response: No adverse reaction tp1 Disposition Summary: 07/17/22 19:10 Hospitalization Ordered Hospitalization Status: Observation snw Provider: Lamine Gilliam snw Location: Telemetry/MedSurg (observation) snw Condition: Stable snw Problem: new snw Symptoms: are unchanged snw Bed/Room Type: Standard snw Room Assignment: 222(07/17/22 19:48) mw Diagnosis - Influenza due to identified novel influenza A virus snw - Weakness snw - Volume depletion, unspecified snw Forms: - Medication Reconciliation Form snw - SBAR form snw Addendum: 07/20/2022 07:01 Co-signature as Attending Physician, Salinas Zamora MD. r n Signatures: Dispatcher [employer] EDMS Reina Watson RN RN mw Myriam Gu, DISPENSING OPERATOR-C DISPENSING OPERATOR-Csnw Salinas Zamora MD MD rn Garcia, Victoria, RN RN vg1 Chemo Wood RN RN mb8 Tianna Lobo RN tp1 Corrections: (The following items were deleted from the chart) 07/17 17:02 16:53 MAGNESIUM+C.LAB.BRZ ordered. EDMS EDMS 17:14 16:47 Accucheck ordered. snw mb8 19:48 19:10 snw mw
--- NOTE | 2022-07-17 19:38 | P.HP ---
Certification for Inpatient Patient admitted to: Observation With expected LOS: <2 Midnights Patient will require the following post-hospital care: None Practitioner: I am a practitioner with admitting privileges, knowledge of patient current condition, hospital course, and medical plan of care. Services: Services provided to patient in accordance with Admission requirements found in Title 42 Section 412.3 of the Code of Federal Regulations Patient History Date of Service: 07/17/22 Primary Care Provider: Tiffani Reason for admission: Influenza A, Weakness History of Present Illness: Patient is an 81 year old male with past medical history significant for hypertension, non-insulin dependent type 2 diabetes, and prostate cancer who presented to the ED for generalized weakness s/p falls. Patient has been feeling weak the past few days and went to his PCP for evaluation. PCP sent him to ED. He tested positive for FluA. Labs significant for BUN 36, Cr 1.7. CT chest negative for PE or PNA. CT brain showed "Small low-density area right occipital lobe. This may represent an acute infarct or volume averaging of CSF." He was al so put on 2L O2 as his O2 sat was low 90s on RA. ED provider wishes to admit patient for further management. Allergies No Known Allergies Allergy (Verified 09/15/21 08:44) Home medications list reviewed: Yes Home Medications: ALPRAZolam [Alprazolam] 2 mg PO DAILY 09/15/21 Amlodipine [Norvasc] 5 mg PO DAILY 09/15/21 Carvedilol [Coreg] 3.125 mg PO BID 09/15/21 Ergocalciferol (Vitamin D2) [Vitamin D2] 1,250 mcg PO SEECOM 09/15/21 Furosemide [Lasix] 20 mg PO DAILY 09/15/21 Glimepiride [Amaryl] 2 mg PO BID 09/15/21 Hydrocodone Bit/Acetaminophen [Hydrocodon-Acetaminophn 10-325] 1 tab PO QID 09/15/21 Montelukast [Singulair] 10 mg PO DAILY 09/15/21 Tamsulosin [Flomax*] 0.4 mg PO DAILY 09/15/21 buPROPion HCL [Bupropion HCl] 100 mg PO BID 09/15/21 - Past Medical/Surgical History Diabetic: Yes -: Type 2 Diabetes, Non-Insulin Dependent -: Hypertension -: Prostate Cancer Past Surgical History: Patient denies surgical history Psychosocial/ Personal History: Patient lives in a trailer alone. He has people that help take care of him. - Family History Father -: Cancer - Social History Smoking Status: Former smoker Alcohol use: Yes CD- Drugs: No Caffeine use: Yes Place of Residence: Home Review of Systems General: Weakness Respiratory: Cough, Shortness of Breath Physical Examination - Physical Exam General: Alert, In no apparent distress HEENT: Atraumatic, PERRLA, EOMI, Sclerae nonicteric Neck: Supple, 2+ carotid pulse no bruit, No LAD, Without JVD or thyroid abnormality Respiratory: Rhonchi/gurgles Cardiovascular: Regular rate/rhythm, Normal S1 S2 Gastrointestinal: Normal bowel sounds, No tenderness Musculoskeletal: No tenderness Integumentary: No rashes Neurological: Normal speech, Normal strength at 5/5 x4 extr, Normal affect - Studies Laboratory Data (last 24 hrs) 07/17/22 16:53: Magnesium Cancelled 07/17/22 16:50: PT 10.5, INR 0.95, APTT 30.5 07/17/22 16:50: Sodium 139, Potassium 4.0, BUN 36 H, Creatinine 1.70 H, Glucose 86, Magnesium 2.5 H, Total Bilirubin 0.6, AST 29, ALT 36, Alkaline Phosphatase 78 07/17/22 16:50: WBC 5.60, Hgb 15.8, Hct 48.1, Plt Count 221 Microbiology Data (last 24 hrs): 07/17/22 17:05 Nasopharnyx Influenza Type A Antigen Screen - Final 07/17/22 17:05 Nasopharnyx Influenza Type B Antigen Screen - Final Assessment and Plan - Problems (Diagnosis) (1) Influenza A Current Visit: Yes Status: Acute (2) JEN (acute kidney injury) Current Visit: Yes Status: Acute (3) Hypertension Current Visit: Yes Status: Chronic Qualifiers: Hypertension type: primary hypertension Qualified Code(s): I10 - Essential (primary) hypertension (4) Type 2 diabetes mellitus Current Visit: Yes Status: Chronic Qualifiers: Diabetes mellitus longterm insulin use: without longterm use Diabetes mellitus complication status: with hyperglycemia Qualified Code(s): E11.65 - Type 2 diabetes mellitus with hyperglycemia (5) Dehydration Current Visit: Yes Status: Acute - Plan Patient out of window for tamiflu Supportive measures with IV fluids, supplemental O2, antitussives, and breathing treatments Head CT showed "small low-density area right occipital lobe" consider MRI if weakness/falls persist ACHS accu checks with mild sliding scale insulin and diabetic diet Monitor and replete electrolytes per protocol Reconcile and continue home medications VTE prophylaxis Full code Discharge Plan: Home Plan to discharge in: 24 Hours - Advance Directives Does patient have a Living Will: No Does patient have a Durable POA for Healthcare: No - Code Status/Comfort Care Code Status Assessed: Yes (Full) Critical Care: No Time Spent Managing Pts Care (In Minutes): 50
[2022-07-17] MEDS ORDERED: ALBUTEROL 2.5 MG/3 ML NEB SOL NEB PRN (20:29)
[2022-07-17] MEDS ORDERED: ONDANSETRON 4 MG/2 ML VIAL IV PRN (20:29)
[2022-07-17] MEDS ORDERED: HYDROCODONE/CHLORPHEN 5 ML/OSYR PO PRN (20:29)
[2022-07-17] MEDS: NA CHLORIDE 0.9% 1,000 ML IV SCH (20:29)
[2022-07-17] MEDS ORDERED: ACETAMINOPHEN 500 MG TAB PO PRN (20:29)
[2022-07-17] MEDS: INSULIN -REGULAR HUMAN 50 UNIT/0.5 ML ML SQ SCH (21:00)
[2022-07-17 21:48] VITALS: BMI 26.8
[2022-07-18 00:56] VITALS: O2SAT 96
[2022-07-18 06:01] LABS: Absolute Lymphocytes (CBC) 0.9 K/uL (0.7-4.9); Hematocrit 43.3 % (39.6-49.0); Lymphocytes % 20.3 % (15.3-44.8); MCV 89.5 fL (80-100); MPV 7.6 fL (7.6-11.3); RBC Red Blood Cell Count 4.84 M/uL (4.33-5.43)
[2022-07-18 06:27] LABS: Magnesium 2.1 mg/dL (1.8-2.4); Phosphorus 2.9 mg/dL (2.5-4.9); Thyroid Stimulating Hormone 0.711 uIU/mL (0.360-3.740)
[2022-07-18 06:52] LABS: Urine Mucus Slight /HPF (None Seen); Urine RBC <5 /HPF (None Seen)
[2022-07-18 07:21] LABS: Specific Gravity > 1.030 (1.005-1.030); Urine Bilirubin NEGATIVE (Negative); Urine Blood 1+ (Negative); Urine Clarity Clear (Clear); Urine Color Light-Yellow (Yellow); Urine Glucose NEGATIVE (Negative); Urine Protein 1+ (Negative); Urine Urobilinogen Normal (Normal); Urine pH 5.5 (5.0-7.0)
[2022-07-18] MEDS: INSULIN -REGULAR HUMAN 50 UNIT/0.5 ML ML SQ SCH ×4 (07:30→21:00)
[2022-07-18] MEDS ORDERED: FUROSEMIDE 20 MG TABLET PO ONE (11:45)
[2022-07-18] MEDS ORDERED: METOPROLOL TAR 50 MG TAB PO ONE (11:45)
[2022-07-18] MEDS: NA CHLORIDE 0.9% 1,000 ML IV SCH (12:35)
--- NOTE | 2022-07-18 14:38 | P.PN ---
Subjective Date of Service: 07/18/22 Subjective: No new changes, No C/O voiced, Improving Review of Systems 10-point ROS is otherwise unremarkable Physical Examination - Vital Signs Temperature: 97.0 F Blood Pressure: 175/80 Pulse: 75 Respirations: 28 Pulse Ox (%): 93 - Physical Exam General: Alert, In no apparent distress HEENT: Atraumatic, PERRLA, EOMI Neck: Supple, JVD not distended Respiratory: Clear to auscultation bilaterally, Normal air movement Cardiovascular: Regular rate/rhythm, Normal S1 S2 Gastrointestinal: Normal bowel sounds, No tenderness Musculoskeletal: No tenderness Integumentary: No rashes Neurological: Normal speech, Normal tone, Normal affect Lymphatics: No axilla or inguinal lymphadenopathy - Studies Laboratory Data (last 24 hrs) 07/17/22 16:53: Magnesium Cancelled 07/17/22 16:50: PT 10.5, INR 0.95, APTT 30.5 07/17/22 16:50: Sodium 139, Potassium 4.0, BUN 36 H, Creatinine 1.70 H, Glucose 86, Magnesium 2.5 H, Total Bilirubin 0.6, AST 29, ALT 36, Alkaline Phosphatase 78 07/17/22 16:50: WBC 5.60, Hgb 15.8, Hct 48.1, Plt Count 221 Microbiology Data (last 24 hrs): 07/17/22 17:05 Nasopharnyx Influenza Type A Antigen Screen - Final 07/17/22 17:05 Nasopharnyx Influenza Type B Antigen Screen - Final Medications List Reviewed: Yes Assessment & Plan - Problems (Diagnosis) (1) JEN (acute kidney injury) Current Visit: Yes Status: Acute (2) Dehydration Current Visit: Yes Status: Acute (3) Influenza A Current Visit: Yes Status: Acute (4) Hypertension Current Visit: Yes Status: Chronic Qualifiers: Hypertension type: primary hypertension Qualified Code(s): I10 - Essential (primary) hypertension (5) Type 2 diabetes mellitus Current Visit: Yes Status: Chronic Qualifiers: Diabetes mellitus longwall headgate operator insulin use: without longwall headgate operator use Diabetes mellitus complication status: with hyperglycemia Qualified Code(s): E11.65 - Type 2 diabetes mellitus with hyperglycemia - Plan Plan: 1. Continue with Tamiflu 2. Continue with outpatient prednisone 3. Albuterol inhaler 4. Check room air O2 sats 5. Portable chest x-ray 6. Anticipate discharge in the morning if clinically doing better - Advance Directives Does patient have a Living Will: No Does patient have a Durable POA for Healthcare: No
[2022-07-18] MEDS: METHYLPREDNISOLONE 40 MG INJ IV SCH (16:21)
[2022-07-18] MEDS: carvediloL 3.125 MG TAB PO SCH (20:02)
[2022-07-18] MEDS: GLIMEPIRIDE 2 MG TABLET PO SCH (20:02)
[2022-07-18] MEDS: buPROPion HCL 100 MG TAB PO SCH (20:02)
[2022-07-19] MEDS: METHYLPREDNISOLONE 40 MG INJ IV SCH ×2 (01:53→09:22)
[2022-07-19] MEDS: INSULIN -REGULAR HUMAN 50 UNIT/0.5 ML ML SQ SCH (07:30)
--- NOTE | 2022-07-19 07:41 | RAD REPORT ---
EXAM DESCRIPTION: RAD - Chest Single View - 07/19/2022 6:48 am CLINICAL HISTORY: pneumonia Chest pain. COMPARISON: Chest Single View dated 07/17/2022; Chest Single View dated 07/14/2022; Chest Pa And Lat ( 2 Views) dated 09/15/2021 FINDINGS: Portable technique limits examination quality. Mild bilateral interstitial lung opacities are present, unchanged since 07/17/2022 prior study. The h eart is upper limit normal in size. No displaced fractures. IMPRESSION: Stable chest since 07/17/2022 study.
[2022-07-19] MEDS ORDERED: FUROSEMIDE 20 MG TABLET PO SCH (09:00)
[2022-07-19] MEDS ORDERED: TAMSULOSIN 0.4 MG SR CAP PO SCH (09:00)
[2022-07-19] MEDS ORDERED: OSELTAMIVIR 30 MG CAP PO SCH (09:00)
[2022-07-19] MEDS ORDERED: AMLODIPINE 10 MG TAB PO SCH (09:00)
[2022-07-19] MEDS: GLIMEPIRIDE 2 MG TABLET PO SCH (09:00)
[2022-07-19] MEDS: carvediloL 3.125 MG TAB PO SCH (09:23)
[2022-07-19] MEDS: buPROPion HCL 100 MG TAB PO SCH (09:23)
[2022-07-19 09:56] VITALS: TEMP 97.1
[2022-07-19 14:32] VITALS: BP 157/79
[2022-07-19] MEDS ORDERED: carvediloL 3.125 MG TAB PO SCH (21:00)
--- NOTE | 2022-07-20 12:17 | EKG ---
Test Date: 2022-07-17 Test Time: 17:11:14 Scrubber Operator: MEASUREMENT RESULTS: Intervals: Rate: 89 NH: 148 QRSD: 100 QT: 374 QTc: 455 [place]: P: 55 NH: 148 QRS: 27 T: 64 INTERPRETIVE STATEMENTS: Normal sinus rhythm Incomplete right bundle branch block Nonspecific ST abnormality Abnormal ECG Compared to ECG 07/14/2022 05:18:25 No significant changes Electronically Signed On 07-20-22 12:13:19 GLOBAL MARKETING SPECIALIST by Yazan Massey
== END 2022-07-19 14:40 | disposition home or self-care (01) ==
LOC: ER 16:27 → ERHOLD 19:33 → 2ND 20:05
PROVIDERS: ADMIT Hospitalist; ATTEND Hospitalist
DX: N17.9 Acute kidney failure, unspecified (principal); J09.X2 Influenza due to identified novel influenza A virus with other respiratory manifestations; E86.0 Dehydration; E11.65 Type 2 diabetes mellitus with hyperglycemia; Z85.46 Personal history of malignant neoplasm of prostate; I10 Essential (primary) hypertension; Z20.822 Contact with and (suspected) exposure to COVID-19
CPT/HCPCS: 96365; 96361; 87040 ×2; 85025 ×2; 80048; 36415; 83735 ×2; 87205; 84100; 85610; 80061; 82947 ×8; 83605; 85730; 84443; 81003; 80053; 87804 ×2; 70450; 72125; 71275; 71045 ×2; 97161; 94010 ×2; 94760 ×6; 99285; 87811; Q9967; J0132; J7030 ×2; J2920 ×3; 87077; 87186; 93005; G0378

== ENCOUNTER 2022-07-23 00:30 | Inpatient (IN) | payer OTHER ==
--- OUTSIDE RECORDS SUMMARY | 2022-07-23 00:34 | XMS REPORT | Continuity of Care Document ---
:1940 Author Organization [facility] t Address [address] [place] [address] Care Team Providers Name Role Phone John Nixon Attending Clinician Unavailable TL PERSAUD Attending Clinician Unavailable EVAN BOSCH Attending Clinician Unavailable ANABELA JIMENEZ Attending Clinician Unavailable Nick Quinteros MD Attending Clinician [facility] Attending Clinician Unavailable NICK QUINTEROS Attending Clinician Unavailable ISA GALO Attending Clinician Unavailable Caleb Rubio Attending Clinician Unavailable Caleb Rubio Attending Clinician Unavailable Caelb Rubio Admitting Clinician Unavailable Payers Payer Name Policy Type Policy Number Effective Date Expiration Date S saad MEDICARE PART A [id number] 2020 2020 AND B 00:00:00 00:00:00 [facility] [id number] 2020 00:00:00 [facility] Medicare 53 [id number] Common Spir it Complete [facility] Problems Condition Condition Condition Status Onset Resolution Last Treating Co mments Source Name Details Category Date Date Treatment Clinician Date [id number] BPH loc w Problem Active Com mon urin Spirit obs/LUTS - [facility] [id number] Prostate Problem Active Comm on cancer [facility] [id number] Urge Problem Active Common incontinen Spirit ce [facility] No known No known Disease Unive rs active active ity of problems problems [place] [facility] Allergies, Adverse Reactions, Alerts Allergy Allergy Status Severity Reaction(s) Onset Inactive Treating Comm ents Source Name Type Date Date Clinician NO KNOWN Drug Active Nivia ALLERGYNES Class ity of [facility] No Known Drug Active [facility] Social History Social Habit Start Date Stop Date Quantity Comments Source History of Common Spirit - Tobacco Use [facility] Sex Assigned At Common Sp qiana - [facility] Alcohol intake 2021-01-23 2021-01-23 Current University 00:00:00 00:00:00 non-drinker of [facility] alcohol Branch (finding) Tobacco use and 2021-01-23 2021-01-23 Never used Universit y of exposure 00:00:00 00:00:00 [facility] Smoking Status Start Date Stop Date Source Former Smoker 2022-04-23 00:00:00 2022-04-23 00:00:00 Common S pirit - [facility] Ce nter Current every day 2021-01-23 00:00:00 [facility] smoker Medical Branch Medications Ordered Filled Start [...] y of 00:00: mouth [place] 00 daily. [facility] ALPRAZolam 2018-0 Yes .5{tbl} Take 0.5 Univers 1 mg tablet 2-24 tablets by it y of 00:00: mouth [place] 00 daily. [facility] ALPRAZolam 2018-0 Yes .5{tbl} Take 0.5 Univers 1 mg tablet 2-24 tablets by it y of 00:00: mouth [place] 00 daily. [facility] ALPRAZolam 2018-0 Yes .5{tbl} Take 0.5 Univers 1 mg tablet 2-24 tablets by it y of 00:00: mouth [place] 00 daily. [facility] ALPRAZolam 2018-0 Yes .5{tbl} Take 0.5 Univers 1 mg tablet 2-24 tablets by it y of 00:00: mouth [place] 00 daily. [facility] ALPRAZolam 2018-0 Yes .5{tbl} Take 0.5 Univers 1 mg tablet 2-24 tablets by it y of 00:00: mouth [place] 00 daily. [facility] ALPRAZolam 2018-0 Yes .5{tbl} Take 0.5 Univers 1 mg tablet 2-24 tablets by it y of 00:00: mouth [place] 00 daily. [facility] ALPRAZolam 2018-0 Yes .5{tbl} Take 0.5 Univers 1 mg tablet 2-24 tablets by it y of 00:00: mouth [place] 00 daily. [facility] No Known No Known No Common Medications Medications [facility] Immunizations Ordered Filled Immunization Date Status Comments [facility] e Immunization Name Name SARS-COV-2 COVID-19 2020-12-20 Completed Unive rsity of PFIZER VACCINE 00:00:00 [facility] SARS-COV-2 COVID-19 2020-12-20 Completed Unive rsity of PFIZER VACCINE 00:00:00 [facility] SARS-COV-2 COVID-19 2020-12-20 Completed Unive rsity of PFIZER VACCINE 00:00:00 [facility] SARS-COV-2 COVID-19 2020-12-20 Completed Unive rsity of PFIZER VACCINE 00:00:00 [facility] SARS-COV-2 COVID-19 2020-12-20 Completed Unive rsity of PFIZER VACCINE 00:00:00 [facility] SARS-COV-2 COVID-19 2020-12-20 Completed Unive rsity of PFIZER VACCINE 00:00:00 [facility] SARS-COV-2 COVID-19 2020-12-20 Completed Unive rsity of PFIZER VACCINE 00:00:00 [facility] SARS-COV-2 COVID-19 2020-12-20 Completed Unive rsity of PFIZER VACCINE 00:00:00 [facility] SARS-COV-2 COVID-19 2020-12-20 Completed Unive rsity of PFIZER VACCINE 00:00:00 [facility] SARS-COV-2 COVID-19 2020-12-20 Completed Unive rsity of PFIZER VACCINE 00:00:00 [facility] SARS-COV-2 COVID-19 2020-11-29 Completed Unive rsity of PFIZER VACCINE 00:00:00 [facility] SARS-COV-2 COVID-19 2020-11-29 Completed Unive rsity of PFIZER VACCINE 00:00:00 [facility] SARS-COV-2 COVID-19 2020-11-29 Completed Unive rsity of PFIZER VACCINE 00:00:00 [facility] SARS-COV-2 COVID-19 2020-11-29 Completed Unive rsity of PFIZER VACCINE 00:00:00 [facility] SARS-COV-2 COVID-19 2020-11-29 Completed Unive rsity of PFIZER VACCINE 00:00:00 [facility] SARS-COV-2 COVID-19 2020-11-29 Completed Unive rsity of PFIZER VACCINE 00:00:00 [facility] SARS-COV-2 COVID-19 2020-11-29 Completed Unive rsity of PFIZER VACCINE 00:00:00 [facility] SARS-COV-2 COVID-19 2020-11-29 Completed Unive rsity of PFIZER VACCINE 00:00:00 [facility] SARS-COV-2 COVID-19 2020-11-29 Completed Unive rsity of PFIZER VACCINE 00:00:00 [facility] SARS-COV-2 COVID-19 2020-11-29 Completed Unive rsity of PFIZER VACCINE 00:00:00 [facility] Vital Signs Vital Name Observation Time Observation Value Comments Source height 2022-04-23 14:30:00 67 [in_i] [facility] weight 2022-04-23 14:30:00 182.8 [lb_av] [facility] temperature 2022-04-23 14:30:00 97.8 [degF] [facility] bmi 2022-04-23 14:30:00 28.63 kg/m2 [facility] oximetry 2022-04-23 14:30:00 94 % [facility] respiratory rate 2022-04-23 14:30:00 17 /min Comm on [facility] blood pressure 2022-04-23 14:30:00 162 mm[Hg] [facility] systolic [facility] blood pressure 2022-04-23 14:30:00 72 mm[Hg] [facility] diastolic [facility] Systolic blood 2021-01-23 13:48:00 165 mm[Hg] Univer sity of [facility] Diastolic blood 2021-01-23 13:48:00 73 mm[Hg] Unive rsity of [facility] Heart rate 2021-01-23 13:48:00 76 /min [facility] Body temperature 2021-01-23 13:48:00 36.39 Yesika [facility] 2021-01-23 13:48:00 18 /min [facility] Body height 2021-01-23 13:48:00 172.7 cm [facility] Body weight 2021-01-23 13:48:00 85.957 kg [facility] BMI 2021-01-23 13:48:00 28.81 kg/m2 [facility] Height/Length 2021-09-30 12:12:10 172.72 cm Measured Weight Dosing 2021-09-30 12:12:10 81.64 kg Height/Length 2021-09-30 12:11:53 172.72 cm Measured Weight Dosing 2021-09-30 12:11:53 81.64 kg Height/Length 2021-09-30 12:11:42 172.72 cm Measured Weight Dosing 2021-09-30 12:11:42 81.64 kg Height/Length 2020-05-16 12:43:20 Measured Weight Dosing 2020-05-16 12:43:20 Procedures Procedure Date / Time Performed Performing Clinician Sourc e PROSTATIC SPECIFIC 2021-01-23 14:34:00 Nick Quinteros [facility] Encounters Start End Encounter Admission Attending Care Care Encounter Source Date/Time Date/Time Type Type Clinicians Facility Department ID 2022-04-23 Outpatient Nixon, STLMLC [facility] [id number] Common 14:00:01 [facility] 2022-04-07 Outpatient [facility] [id number] [place] 06:15:21 [id number] [facility] 2021-09-01 Outpatient ACHOR, [facility] [id number] [place] [facility] [id number] [place] 11:17:52 [facility] 2021-06-24 Outpatient BOSCH, [facility] [id number] [place] 11:41:27 EVAN [facility] 2021-06-16 Outpatient BARBARA, [facility] [id number] [place] 11:57:29 [facility] 2021-06-11 Outpatient BARBARA, [facility] [id number] [place] [facility]:02[facility]22-04-23 2022-04-23 OFFICE [facility] [id number] Co mmon 00:00:00 00:00:00 VISIT NEW Spir it PT LEVEL 3 - [facility] 2021-02-12 2021-02-12 Telephone LELO Quinteros [id number] Univers 00:00:00 00:00:00 [facility] [id number] i ty [facility] [id number] Alek as [phone] [place] [address] Branch 2021-01-24 2021-01-24 Telephone LELO Quinteros [id number] Univers 00:00:00 00:00:00 [facility] [id number] i ty of [facility] [id number] Alek as [id number] [facility] 204 Branch 2021-01-23 2021-01-[address] [facility] UNIVERSIT [id number] Univers 09:25:30 09:29:17 Visit Nick Quinteros [facility] 350. [id number] ity of [id number] [id number] [facility] 316 Branch 2021-01-23 2021-01-23 Office Aldair [facility] [id number] Univers 08:39:05 09:26:37 Visit Nick [facility] [id number] i ty of [facility] [id number] Alek as [id number] [facility] [address] [place] 2021-01-23 2021-01-[address] [facility] [id number] Univers 09:00:00 09:00:00 [facility] 2021-01-23 2021-01-23 Telephone Aldair [facility] [id number] Univers 00:00:00 00:00:00 [facility] [id number] i ty of [facility] [id number] Alek as [phone] [facility] 204 Branch 2020-12-20 2020-12-[address] [facility] [id number] Univers 14:10:00 14:10:00 [facility] [place] [facility] 2020-11-29 2020-11-[address] [facility] [id number] Univers 14:10:00 14:10:00 [facility] [place] [facility] 2020-05-16 2020-05-16 Outpatient 3 Caleb Rubio [facility] [id number] St. 10:47:00 23:59:00 Caleb Rubio [facility] 2020-05-16 2020-05-16 Outpatient 3 Caleb Rubio [facility] [id number] St. 10:47:00 10:47:00 Caleb Rubio -2019 [id number] [facility] 2020-02-01 2020-02-[address] [facility] [id number] Univers 08:15:00 08:15:00 NICK [facility] 2020-02-01 2020-02-01 Telemedici NIVIA QuinterosIT [id number] Univers 07:41:50 07:56:50 ne Visit Nick [id number] [id number] Alek as [phone] [place] [address] Branch 2019-07-27 2019-07-[address] [facility] [id number] Univers 10:45:00 11:27:21 [facility] Results Test Description Test Time Test Comments Results Result Comments Source PROSTATIC SPECIFIC ANTIGEN 2021-01-23 16:41:06 Test Item Value Reference Range Interpretation Comme nts PSA (test code = 6.24 ng/mL See_Comment H [Automated message] The [id number]) system which ge nerated this result tra nsmitted reference range : <=4.00. The reference r meghan was not used to int erpret this result as ruby l/abnormal. CINDY (test code = CINDY) Biotin has been reported to cause a negative bias, interpret results relative to patient's use of biotin. Lab Interpretation (test Abnormal code = 86591-2) [facility] [place] [facility] [id number] 16:41:06 Test Item Value Reference Range Interpretation Comments PSA (test code = 6.24 ng/mL See_Comment H [Automated [id number]) message] The system which generated this result transmitted reference range : <=4.00. The reference range was not used to interpret this result as normal/abnormal . CINDY (test code = CINDY) Biotin has been reported to cause a negative bias, interpret results relative to patient's use of biotin. Lab Interpretation Abnormal (test code = 19149-8) [facility] [id number] 12:05:24 Test Item Value Reference Range Interpretation Comments Glucose POC (test 68 mg/dL 70-115 L If you con coke crane operator your code = Glucose POC) patient critically ill, the Magdalena-Accu Check Infrom II meter should not be used for Glucose determination. Draw a venous Glucose and send to the main Lab for analysis.
[2022-07-23 01:46] LABS: Albumin 3.5 g/dL (3.4-5.0); Bilirubin Direct 0.2 mg/dL (0-0.2); Bilirubin Total 0.6 mg/dL (0.2-1.0); Potassium 4.1 mmol/L (3.5-5.1); Protein, Total 7.5 g/dL (6.4-8.2)
[2022-07-23 01:47] LABS: Absolute Lymphocytes (CBC) 0.7 K/uL (0.7-4.9)
[2022-07-23 01:51] LABS: Hematocrit 44.6 % (39.6-49.0); Lymphocytes % 10.2 % (15.3-44.8); MCV 89.3 fL (80-100); MPV 8.6 fL (7.6-11.3); RBC Red Blood Cell Count 4.99 M/uL (4.33-5.43)
--- NOTE | 2022-07-23 02:42 | EDPHYS ---
Physician Documentation [facility] Name: Qamar Campbell Age: 81 yrs Sex: Male : 1940 Arrival Date: 07/23/2022 Time: 00:38 Bed 8 Private MD: ED Physician Henok Carmona HPI: 07/23 01:21 This 81 yrs old Male presents to ER via EMS with complaints of generalized weakness and sp3 hypoglycemia. 01:21 81-year-old male with history of diabetes, hypertension, prostate cancer, recent sp3 admission for influenza/pneumonia and discharged on July 19 now presents 4 days later for generalized weakness and hypoglycemia noted by EMS. EMS was activated by his friend/roommate for his decreased ability to walk around and being increasingly weak since coming home. EMS found patient to be hypoglycemic in the 40s gave dextrose. Only patient states that he just feels weak but has no other specific complaints. He denies headache, fever, neck pain, chest pain, abdominal pain, nausea, vomiting, diarrhea, rash, or any other concerning findings. He does get short of breath on exertion.. Historical: - Allergies: 00:43 No Known Allergies; as6 - Home Meds: 00:43 Alprazolam Oral [Active]; Hydrocodone-Acetaminophen Oral [Active]; Metformin Oral as6 [Active]; - PMHx: 00:43 Diabetes - NIDDM; Hypertension; PROSTATE CA; as6 - Immunization history:: Client reports receiving the 2nd dose of the Covid vaccine, Flu vaccine is not up to date. - Social history:: Smoking status: Patient/guardian denies using tobacco, but has a distant history of tobacco abuse. ROS: 01:23 Eyes: Negative for injury, pain, redness, and discharge, ENT: Negative for injury, sp3 pain, and discharge, Neck: Negative for injury, pain, and swelling, Cardiovascular: Negative for chest pain, palpitations, and edema, Abdomen/GI: Negative for abdominal pain, nausea, vomiting, diarrhea, and constipation, Back: Negative for injury and pain, MS/Extremity: Negative for injury and deformity, Skin: Negative for injury, rash, and discoloration, Neuro: Negative for headache, weakness, numbness, tingling, and seizure, Psych: Negative for depression, anxiety, suicide ideation, homicidal ideation, and hallucinations, Allergy/Immunology: Negative for hives, rash, and allergies. 01:23 All other systems are negative. Exam: 01:23 Constitutional: This is a well developed, well nourished patient who is awake, alert, sp3 and in no acute distress. Head/Face: Normocephalic, atraumatic. Eyes: Pupils equal round and reactive to light, extra-ocular motions intact. Lids and lashes normal. Conjunctiva and sclera are non-icteric and not injected. Cornea within normal limits. Periorbital areas with no swelling, redness, or edema. ENT: Nares patent. No nasal discharge, no septal abnormalities noted. External auditory canals are clear. Oropharynx with no redness, swelling, or masses, exudates, or evidence of obstruction, uvula midline. Mucous membranes moist. Neck: Trachea midline, no thyromegaly or masses palpated, and no cervical lymphadenopathy. Supple, full range of motion without nuchal rigidity, or vertebral point tenderness. No Meningismus. Chest/axilla: Normal chest wall appearance and motion. Nontender with no deformity. No lesions are appreciated. Cardiovascular: Regular rate and rhythm with a normal S1 and S2. No gallops, murmurs, or rubs. Normal PMI, no JVD. No pulse deficits. Respiratory: Lungs have equal breath sounds bilaterally, clear to auscultation and percussion. No rales, rhonchi or wheezes noted. No increased work of breathing, no retractions or nasal flaring. Abdomen/GI: Soft, non-tender, with normal bowel sounds. No distension or tympany. No guarding or rebound. No evidence of tenderness throughout. Skin: Warm, dry with normal turgor. Normal color with no rashes, no lesions, and no evidence of cellulitis. MS/ Extremity: Pulses equal, no cyanosis. Neurovascular intact. Full, normal range of motion. Psych: Awake, alert, with orientation to person, place and time. Behavior, mood, and affect are within normal limits. 01:23 Constitutional: The patient appears Ill-appearing male that is tired in appearance and slow to respond. No focal deficits noted. Patient is not toxic and is hemodynamically stable. 01:32 ECG was reviewed by the Attending Physician. EKG demonstrates normal sinus rhythm at 68 sp3 bpm with normal intervals, normal QRS, normal axis, normal ST/T segments without evidence of acute ischemia. Vital Signs: 00:41 BP 147 / 80; Pulse 76; Resp 16 S; Temp 97.7(O); Pulse Ox 96% on 2 lpm NC; Weight 77.11 as6 kg (R); Height 5 ft. 8 in. (172.72 cm) (R); Pain 0/10; 01:34 BP 149 / 78; Pulse 65; Resp 18 S; Pulse Ox 98% on 2 lpm NC; as6 04:48 BP 133 / 66; Pulse 75; Resp 15 S; Pulse Ox 94% on R/A; as6 00:41 Body Mass Index 25.85 (77.11 kg, 172.72 cm) as6 MDM: 00:42 Patient medically screened. sp3 01:23 Data reviewed: vital signs, nurses notes. ED course: Male with multiple medical sp3 problems and recent influenza/pneumonia admission now presents again for generalized weakness. Differential diagnosis is broad and includes continued deconditioning secondary to infection, further pneumonia, worsening pneumonia, acute coronary syndrome electrolyte disturbance, dehydration among others. Work-up will include laboratory values, repeat chest x-ray, EKG, and general support. I do not highly suspect backed acute coronary syndrome, CHF, aortic pathology, or any other concerning diagnoses. Disposition TBD after review of work-up and patient course.. 02:40 ED course: Patient failed ambulation test and upon further review of lab work, he has sp3 likely acute on chronic JEN. Discussed with hospitalist team and will will be admitting him for overnight stay.. 07/23 00:42 Order name: Basic Metabolic Panel; Complete Time: 02:04 sp3 07/23 00:42 Order name: CBC with Diff; Complete Time: 02:04 sp3 07/23 00:42 Order name: LFT's; Complete Time: 02:04 sp3 07/23 00:42 Order name: NT PRO-BNP; Complete Time: 02:04 sp3 07/23 00:42 Order name: Troponin HS; Complete Time: 02:04 sp3 07/23 00:52 Order name: Glucose, Ancillary Testing; Complete Time: 02:04 EDMS 07/23 00:42 Order name: XRAY Chest (1 view) sp3 07/23 00:42 Order name: EKG; Complete Time: 00:42 sp3 07/23 02:40 Order name: Blood Culture Adult (2) as6 07/23 02:52 Order name: SARS RAPID; Complete Time: 04:34 as6 07/23 02:57 Order name: Urine Microscopic Only as6 07/23 02:57 Order name: Urine Culture as6 07/23 00:42 Order name: Cardiac monitoring; Complete Time: 00:44 sp3 07/23 00:42 Order name: EKG - Nurse/Tech; Complete Time: 01:14 sp3 07/23 00:42 Order name: IV Saline Lock; Complete Time: 01:14 sp3 07/23 00:42 Order name: Labs collected and sent; Complete Time: : sp3 07/23 00:42 Order name: O2 Per Protocol; Complete Time: 00:44 sp3 07/23 00:42 Order name: O2 Sat Monitoring; Complete Time: 00:44 sp3 Administered Medications: 03:01 CANCELLED (Other Intervention Used): Rocephin (cefTRIAXone) 1 grams IV at calculated la1 rate once; Given slow IV push per pharmacy instructions 04:04 Drug: Lactated Ringers Solution 1000 ml Route: IV; Rate: 75 ml/hr; Site: right forearm; as6 04:53 Follow up: Response: No adverse reaction; IV Status: Infusion continued upon admission as6 Disposition Summary: 07/23/22 02:41 Hospitalization Ordered Hospitalization Status: Observation sp3 Provider: Bhargav Keita sp3 Location: Telemetry/MedSurg (observation) sp3 Condition: Stable sp3 Problem: an acute exacerbation sp3 Symptoms: have worsened sp3 Bed/Room Type: Standard sp3 Room Assignment: 222(07/23/22 04:41) eb1 Diagnosis - Generalized weakness, JEN sp3 Forms: - Medication Reconciliation Form sp3 - SBAR form sp3 Signatures: Dispatcher [employer] EDMS Ubaldo Williamson FNP-C FNP-Kady Boykin RN RN eb1 Henok Carmona MD MD sp3 Venancio Quintana RN RN as6 Corrections: (The following items were deleted from the chart) 03:01 02:58 Rocephin (cefTRIAXone) 1 grams IV at calculated rate once; Given slow IV push per la1 pharmacy instructions ordered. la1 04:41 02:41 sp3 eb1
--- NOTE | 2022-07-23 02:42 | ER ---
Nurse's Notes [facility] Name: Qamar Campbell Age: 81 yrs Sex: Male : 1940 Arrival Date: 07/23/2022 Time: 00:38 Bed 8 Private MD: Diagnosis: Generalized weakness, JEN Presentation: 07/23 00:41 Chief complaint: EMS states: pt was recently discharged from hospital with pneumonia, as6 pt returns today c/o generalized fatigue and weakness. Coronavirus screen: At this time, the client does not indicate any symptoms associated with coronavirus-19. Ebola Screen: No symptoms or risks identified at this time. Initial Sepsis Screen: Does the patient meet any 2 criteria? No. Patient's initial sepsis screen is negative. Does the patient have a suspected source of infection? No. Patient's initial sepsis screen is negative. Risk Assessment: Do you want to hurt yourself or someone else? Patient reports no desire to harm self or others. Onset of symptoms was July 22, 2022. 00:41 Method Of Arrival: EMS: [facility] as6 00:41 Acuity: ELISSA 3 as6 Historical: - Allergies: 00:43 No Known Allergies; as6 - Home Meds: 00:43 Alprazolam Oral [Active]; Hydrocodone-Acetaminophen Oral [Active]; Metformin Oral as6 [Active]; - PMHx: 00:43 Diabetes - NIDDM; Hypertension; PROSTATE CA; as6 - Immunization history:: Client reports receiving the 2nd dose of the Covid vaccine, Flu vaccine is not up to date. - Social history:: Smoking status: Patient/guardian denies using tobacco, but has a distant history of tobacco abuse. Screenin:34 Abuse screen: Denies threats or abuse. Denies injuries from another. Nutritional as6 screening: No deficits noted. Tuberculosis screening: No symptoms or risk factors identified. Fall Risk None identified. Assessment: 00:40 General: Appears in no apparent distress. ill, Behavior is calm, cooperative. General: as6 Behavior is drowsy, Reports fatigue for. Pain: Denies pain. Neuro: Level of Consciousness is lethargic. Respiratory: Respiratory effort is even, unlabored, Breath sounds with crackles. Vital Signs: 00:41 BP 147 / 80; Pulse 76; Resp 16 S; Temp 97.7(O); Pulse Ox 96% on 2 lpm NC; Weight 77.11 as6 kg (R); Height 5 ft. 8 in. (172.72 cm) (R); Pain 0/10; 01:34 BP 149 / 78; Pulse 65; Resp 18 S; Pulse Ox 98% on 2 lpm NC; as6 04:48 BP 133 / 66; Pulse 75; Resp 15 S; Pulse Ox 94% on R/A; as6 00:41 Body Mass Index 25.85 (77.11 kg, 172.72 cm) as6 ED Course: 00:38 Patient arrived in ED. as6 00:41 Henok Carmona MD is Attending Physician. sp3 00:43 Triage completed. as6 00:43 Arm band placed on. as6 00:44 Venancio Quintana, RN is Primary Nurse. as6 00:50 Inserted saline lock: 20 gauge in right forearm, using aseptic technique. Blood as6 collected. 00:55 XRAY Chest (1 view) In Process Unspecified. EDMS 01:34 Placed in gown. Bed in low position. Call light in reach. Side rails up X2. Client as6 placed on continuous cardiac and pulse oximetry monitoring. NIBP monitoring applied. 02:41 Bhargav Keita MD is Hospitalizing Provider. sp3 04:48 No provider procedures requiring assistance completed. Patient admitted, IV remains in as6 place. Administered Medications: 03:01 CANCELLED (Other Intervention Used): Rocephin (cefTRIAXone) 1 grams IV at calculated la1 rate once; Given slow IV push per pharmacy instructions 04:04 Drug: Lactated Ringers Solution 1000 ml Route: IV; Rate: 75 ml/hr; Site: right forearm; as6 04:53 Follow up: Response: No adverse reaction; IV Status: Infusion continued upon admission as6 Medication: 01:35 VIS not applicable for this client. as6 Outcome: 02:41 Decision to Hospitalize by Provider. sp3 04:48 Admitted to Med/surg accompanied by nurse. as6 04:48 Condition: stable 04:48 Instructed on the need for admit. 04:54 Patient left the ED. as6 Signatures: Dispatcher [employer] EDMS Henok Carmona MD MD sp3 Venancio Quintana, RN RN as6 Attema, Ubaldo GROUP CAPTAIN-[id number]
--- NOTE | 2022-07-23 03:25 | P.HP ---
Certification for Inpatient Patient admitted to: Observation With expected LOS: <2 Midnights Patient will require the following post-hospital care: None Practitioner: I am a practitioner with admitting privileges, knowledge of patient current condition, hospital course, and medical plan of care. Services: Services provided to patient in accordance with Admission requirements found in Title 42 Section 412.3 of the Code of Federal Regulations <Ubaldo Williamson - Last Filed: 07/23/22 03:21> Patient History Date of Service: 07/23/22 Reason for admission: JEN, hypoglycemia History of Present Illness: 81-year-old male with history of hypertension, diabetes mellitus type [id number]-jkoyznbwa, CKD 3 presents emergency department for weakness, hypoglycemia. He called EMS feeling unwell they found his blood sugar to be in the 50s, he was given D10 by EMS and transported to the ER for evaluation. He was recently here in the hospital admitted on 07/17/2022 and discharged on 07/19/2022 for influenza, weakness. During his stay he did have a positive blood culture 1 out of 4 bottles for E. coli, he was discharged on Tamiflu, cefdinir but patient is not clear on whether he has been taking these medications outpatient or not. He was evaluated here in the emergency department labs were significant for creatinine 1.99 BUN 50 GFR 33 glucose initially 64 increased to 89 AST 38 ALT 102 chest x-ray negative for any acute findings. Baseline creatinine appears to be around 1.6 currently at 1.99 patient also with decondi tioning, unable to ambulate without assistance, lives alone without any assistive devices at home reportedly. ED provider wishes to admit under observation for further evaluation and management. - Past Medical/Surgical History Diabetic: Yes -: Type 2 Diabetes, Non-Insulin Dependent -: Hypertension -: Prostate Cancer -: Leg surgery Psychosocial/ Personal History: Patient reports he lives alone - Family History Father -: Cancer - Social History Smoking Status: Never smoker Alcohol use: Yes CD- Drugs: No Caffeine use: Yes Place of Residence: Home <Ubaldo Williamson - Last Filed: 07/23/22 03:21> Date of Service: 07/23/22 <Bhargav Keita - Last Filed: 07/23/22 10:23> Allergies No Known Allergies Allergy (Verified 09/15/21 08:44) Home Medications: ALPRAZolam [Alprazolam] 2 mg PO DAILY 09/15/21 Amlodipine [Norvasc*] 5 mg PO DAILY 09/15/21 Carvedilol [Coreg] 3.125 mg PO BID 09/15/21 Ergocalciferol (Vitamin D2) [Vitamin D2] 1,250 mcg PO SEECOM 09/15/21 Furosemide [Lasix*] 20 mg PO DAILY 09/15/21 Glimepiride [Amaryl*] 2 mg PO BID 09/15/21 Hydrocodone Bit/Acetaminophen [Hydrocodon-Acetaminophn 10-325] 1 tab PO QID 12/02 Montelukast [Singulair*] 10 mg PO DAILY 09/15/21 Tamsulosin [Flomax*] 0.4 mg PO DAILY 09/15/21 buPROPion HCL [Bupropion HCl] 100 mg PO BID 09/15/21 Albuterol Inhaler [Ventolin Inhaler*] 2 puff IH Q6H PRN #1 inh 07/18/22 Oseltamivir Phosphate [Tamiflu] 75 mg PO BID #10 tab 07/18/22 predniSONE [Deltasone] 20 mg PO BID #11 tab 07/18/22 Cefdinir [Cefdinir*] 300 mg PO BID #14 cap 07/19/22 Review of Systems 10-point ROS is otherwise unremarkable General: Weakness, Malaise <AttemaUbaldo Steven - Last Filed: 07/23/22 03:21> Physical Examination - Physical Exam General: Alert, In no apparent distress, Oriented x3 HEENT: Atraumatic, PERRLA, Other (Mucous membranes dry), EOMI, Sclerae nonicteric Neck: Supple, 2+ carotid pulse no bruit, No LAD, Without JVD or thyroid abnormality Respiratory: Clear to auscultation bilaterally, Normal air movement Cardiovascular: Regular rate/rhythm, Normal S1 S2 Capillary refill: <2 Seconds Gastrointestinal: Normal bowel sounds, No tenderness Musculoskeletal: No tenderness Integumentary: No rashes Neurological: Normal speech, Normal strength at 5/5 x4 extr, Normal tone, Normal affect - Studies Laboratory Data (last 24 hrs) 07/23/22 01:09: WBC 6.40, Hgb 15.0, Hct 44.6, Plt Count 207 07/23/22 01:09: Sodium 138, Potassium 4.1, BUN 50 H, Creatinine 1.99 H, Glucose 89, Total Bilirubin 0.6, AST 38 H, ALT 102 H, Alkaline Phosphatase 67 <Ubaldo Williamson - Last Filed: 07/23/22 03:21> - Studies Laboratory Data (last 24 hrs) 07/23/22 01:09: WBC 6.40, Hgb 15.0, Hct 44.6, Plt Count 207 07/23/22 01:09: Sodium 138, Potassium 4.1, BUN 50 H, Creatinine 1.99 H, Glucose 89, Total Bilirubin 0.6, AST 38 H, ALT 102 H, Alkaline Phosphatase 67 <Bhargav Keita - Last Filed: 07/23/22 10:23> Assessment and Plan - Plan Assessment: JEN on CKD 3 Diabetes mellitus type 2 [id number] with hypoglycemia Deconditioning Recent positive blood culture 1 out of 4 for E. coli on 07/17/2022 Hypertension Plan: JEN on CKD 3: Continue gentle hydration overnight, patient appears dry. Repeat chemistry, baseline creatinine around 1.6 currently at 1.9. Diabetes mellitus type 2 [id number] with hypoglycemia: Every 6 hours Accu-Chek, mild sliding scale insulin patient reports poor oral intake along with fatigue, malaise. Deconditioning: Patient lives alone, reports he is unable to walk currently he is not able to ambulate without significant amount of assistance in the emergency department. Physical therapy consult in place. Recent positive blood culture 1 out of 4 for E. coli on 07/17/2022: Patient was discharged with prescription for cefdinir, unclear if patient took medication at discharge or not, blood cultures repeated today in the emergency department. Urinalysis ordered and pending. Hypertension: Continue home medications as appropriate. DVT PPX: Heparin Code status: Full Discharge Plan: Home Plan to discharge in: 24 Hours - Advance Directives Does patient have a Living Will: No Does patient have a Durable POA for Healthcare: No - Code Status/Comfort Care Code Status Assessed: Yes (Full code) Critical Care: No Time Spent Managing Pts Care (In Minutes): 70 <Ubaldo Williamson - Last Filed: 07/23/22 03:21> Physician Review: Patient Assessed, Agree with Above Assessment and Plan <Bhargav Keita - Last Filed: 07/23/22 10:23>
[2022-07-23] MEDS ORDERED: Ringers Lactate 1,000 ML IV ONE (03:46)
[2022-07-23 04:12] LABS: SARS-CoV-2 Antigen Rapid Res Negative (Negative)
[2022-07-23] MEDS: Ringers Lactate 1,000 ML IV SCH ×3 (05:32→22:53)
[2022-07-23] MEDS ORDERED: ONDANSETRON 4 MG/2 ML VIAL IV PRN (05:32)
[2022-07-23] MEDS ORDERED: ACETAMINOPHEN 500 MG TAB PO PRN (05:32)
[2022-07-23 05:39] VITALS: BMI 25.8
[2022-07-23] MEDS ORDERED: CEFTRIAXONE 1000 MG/VIAL ONE (06:30)
[2022-07-23] MEDS ORDERED: NA CHLORIDE 0.9% 50 ML ONE (06:31)
[2022-07-23] MEDS: CEFTRIAXONE 1,000 MG in NA CHLORIDE 0.9% 50 ML IVPB SCH (06:39)
[2022-07-23] MEDS: INSULIN -REGULAR HUMAN 50 UNIT/0.5 ML ML SQ SCH ×4 (07:30→20:25)
[2022-07-23] MEDS: HEPARIN 5000 UNIT/ML 1 ML VIAL SQ SCH ×2 (09:21→20:26)
[2022-07-23] MEDS ORDERED: DEXTROSE 10%-WATER 250 ML IV SCH (12:00)
--- NOTE | 2022-07-23 12:01 | RAD REPORT ---
EXAM DESCRIPTION: CT - Head Brain Wo Cont - 07/23/2022 11:45 am CLINICAL HISTORY: Visual disturbance COMPARISON: July 17, 2022 TECHNIQUE: Computed axial tomography of the head was obtained. IV contrast was not requested. All CT scans are performed using dose optimization technique as appropriate and may include automated exposure control or mA/KV adjustment according to patient size. FINDINGS: An intracranial bleed is not seen . The ventricles are normal in caliber. No extra-axial fluid collection is noted. 2.5 centimeter low-density area medial right occipital lobe consistent with subacute infarct. Fluid within the sinuses/ mastoids is not seen. IMPRESSION: Subacute infarct right occipital lobe
--- NOTE | 2022-07-23 12:39 | RAD REPORT ---
EXAM DESCRIPTION: RAD - Chest Single View - 07/23/2022 12:54 am CLINICAL HISTORY: 81 years Male, DYSPNEA COMPARISON: Chest x-ray and chest CT performed on 07/14/2022 TECHNIQUE: Single portable x-ray view of the chest performed on 07/23/2022 at 12:49 AM FINDINGS: The lungs are well expanded and are clear. There is no evidence of a pneumothorax. The cardiac silhouette is normal in size and configuration. The mediastinal contours are normal. No acute osseous abnormality is identified. No acute soft tissue abnormalities are seen. Lines and tubes: None. Free air: None IMPRESSION: No evidence of acute intrathoracic disease. Electronically signed by: Graciela Hurd DO 07/23/2022 1:04 AM ASTRONOMY DEPARTMENT CHAIR Due to temporary technical issues with the PACS/Fluency reporting system, reports are being signed by the in house radiologists without review as a courtesy to insure prompt reporting. The interpreting radiologist is fully responsible for the content of the report.
--- NOTE | 2022-07-23 14:53 | EKG ---
Test Date: 2022-07-23 Test Time: 00:59:12 Shaper Setter: MEASUREMENT RESULTS: Intervals: Rate: 68 IA: 154 QRSD: 102 QT: 422 QTc: 448 Bessie: P: 61 IA: 154 QRS: 33 T: 55 INTERPRETIVE STATEMENTS: Normal sinus rhythm Incomplete right bundle branch block Borderline ECG Compared to ECG 07/17/2022 17:11:14 ST (T wave) deviation no longer present Electronically Signed On 07-23-22 14:52:35 PRECAST MOLDER by Yazan Massey
[2022-07-23] MEDS ORDERED: D10W 250 ML IV SCH (15:44)
[2022-07-23] MEDS ORDERED: D50W 25 GM/50 ML SYRINGE IV PRN (16:00)
[2022-07-23] MEDS ORDERED: DEXTROSE 10%-WATER 500 ML IV BAG IV PRN ×2 (16:00)
[2022-07-23] MEDS: CLOPIDOGREL 75 MG TABLET PO SCH (18:21)
[2022-07-23] MEDS: ASPIRIN 81 MG CHEWABLE TABLET PO SCH (18:21)
[2022-07-23] MEDS: FOLIC ACID 1 MG TABLET PO SCH (18:21)
[2022-07-23] MEDS: ATORVASTATIN 40 MG TAB PO SCH (20:26)
[2022-07-24 04:04] LABS: Specific Gravity 1.012 (1.005-1.030); Urine Bacteria <20 /HPF (<20); Urine Bilirubin NEGATIVE (Negative); Urine Blood Negative (Negative); Urine Clarity Clear (Clear); Urine Color Light-Yellow (Yellow); Urine Glucose NEGATIVE (Negative); Urine Mucus Slight /HPF (None Seen); Urine Protein TRACE (Negative); Urine RBC <5 /HPF (None Seen); Urine Urobilinogen Normal (Normal); Urine pH 5.5 (5.0-7.0)
[2022-07-24 07:11] LABS: Absolute Lymphocytes (CBC) 1.5 K/uL (0.7-4.9); Hematocrit 45.9 % (39.6-49.0); Lymphocytes % 14.7 % (15.3-44.8); MCV 89.5 fL (80-100); MPV 8.8 fL (7.6-11.3); RBC Red Blood Cell Count 5.13 M/uL (4.33-5.43)
[2022-07-24] MEDS: INSULIN -REGULAR HUMAN 50 UNIT/0.5 ML ML SQ SCH ×4 (07:30→21:00)
[2022-07-24 07:34] LABS: Bilirubin Total 0.6 mg/dL (0.2-1.0); Potassium 3.8 mmol/L (3.5-5.1); Protein, Total 6.8 g/dL (6.4-8.2); Thyroid Stimulating Hormone 0.738 uIU/mL (0.360-3.740)
[2022-07-24 08:30] LABS: White Blood Cell Scan OK (OK)
[2022-07-24 08:31] LABS: Blood Morphology Comment NOTED (NOT SEEN); Platelet Estimate ADEQ; Platelets, Giant 1+; Poikilocytosis 1+
[2022-07-24 08:32] LABS: Ovalocytes SLIGHT
[2022-07-24] MEDS: FOLIC ACID 1 MG TABLET PO SCH (09:38)
[2022-07-24] MEDS: CLOPIDOGREL 75 MG TABLET PO SCH (09:38)
[2022-07-24] MEDS: ASPIRIN 81 MG CHEWABLE TABLET PO SCH (09:38)
[2022-07-24] MEDS: CEFTRIAXONE 1,000 MG in NA CHLORIDE 0.9% 50 ML IVPB SCH (09:39)
[2022-07-24] MEDS: Ringers Lactate 1,000 ML IV SCH ×2 (09:39→23:58)
[2022-07-24] MEDS: HEPARIN 5000 UNIT/ML 1 ML VIAL SQ SCH ×2 (09:39→21:08)
--- NOTE | 2022-07-24 10:09 | RAD REPORT ---
EXAM DESCRIPTION: MRI - Brain W/Wo Cont - 07/24/2022 9:20 am CLINICAL HISTORY: Stroke Eval Headache, drowsiness, CVA symptomology COMPARISON: Head Brain Wo Cont dated 07/23/2022 TECHNIQUE: Multi-sequence, multiplanar MR imaging of the brain was performed with contrast. FINDINGS: No intracranial hemorrhage, hydrocephalus, or extra-axial fluid collection. Moderate confl uent T2/FLAIR hyperintensity in the periventricular and deep white matter is present compatible with chronic microvascular ischemic changes. No edema or shift of midline structures. No intracranial mass . 5 cm area of acute CVA noted medial right occipital lobe.. The midline structures are normally formed. Mastoid air cells and paranasal sinuses are clear. Mild enhancement in the region of infarct is noted, otherwise no abnormal enhancement seen. IMPRESSION: 3 cm acute to subacute time frame right medial occipital lobe infarct. No hemorrhage or midline shift evident.
--- NOTE | 2022-07-24 10:13 | RAD REPORT ---
EXAM DESCRIPTION: MRI - MRA Head Wo Cont - 07/24/2022 9:20 am CLINICAL HISTORY: Stroke Eval CVA COMPARISON: Brain W/Wo Cont dated 07/24/2022 FINDINGS: 3D noncontrast [id number] MR angiography of the [place] was performed. No aneurysm, flow-limiting stenosis or vascular malformation is seen. Forward flow seen in codominant vertebral arteries. The visualized dural venous sinuses appear patent. IMPRESSION: No significant flow abnormality of the [place] is identified.
--- NOTE | 2022-07-24 10:28 | RAD REPORT ---
EXAM DESCRIPTION: MRI - MRA Neck W/Wo Cont - 07/24/2022 9:21 am CLINICAL HISTORY: Stroke Eval Headache, drowsiness, CVA symptomology. COMPARISON: No comparisons FINDINGS: Contrast enhance 2D [id number] MR angiography of the neck vessels was performed. There is a left aortic arch noted. Normal origin pattern of the great vessels. Symmetric common carotid artery seen without stenosis. Le ft post bulbar internal carotid artery shows mild narrowing estimated at 50% based on NASCET criteria . No significant right-sided carotid stenosis. Antegrade flow is seen in both vertebral arteries. 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
--- NOTE | 2022-07-24 14:44 | ECHO ---
HEIGHT: 5 ft 8 in WEIGHT: 170 lb 0 oz DATE OF STUDY: 07/24/[address]: Bhargav Keita MD 2-DIMENSIONAL: YES M.MODE: YES DOPPLER: YES COLOR FLOW: YES TDS: PORTABLE: YES DEFINITY: BUBBLE STUDY: DIAGNOSIS: STROKE EVALUATION CARDIAC HISTORY: CATHERIZATION: NO SURGERY: NO PROSTHETIC VALVE: NO PACEMAKER: NO MEASUREMENTS (cm) DIASTOLIC (NORMALS) SYSTOLIC (NORMALS) IVSd 1.2 (0.6-1.2) LA Diam 2.5 (1.9-4.0) LVEF 55-60% LVIDd 3.2 (3.5-5.7) LVIDs 2.4 (2.0-3.5) %FS 26% LVPWd 1.3 (0.6-1.2) Ao Diam 2.9 (2.0-3.7) 2 DIMENSIONAL ASSESSMENT: RIGHT ATRIUM: NORMAL LEFT ATRIUM: NORMAL RIGHT VENTRICLE: NORMAL LEFT VENTRICLE: NORMAL TRICUSPID VALVE: MILD TRICUSPID REGURGITATION MITRAL VALVE: MILD MITRAL REGURGITATION PULMONIC VALVE: NORMAL AORTIC VALVE: MILD AORTIC INSUFFICIENCY PERICARDIAL EFFUSION: NONE AORTIC ROOT: NORMAL LEFT VENTRICULAR WALL MOTION: NORMAL DOPPLER/COLOR FLOW: SEE BELOW COMMENTS: NORMAL LEFT VENTRICULAR EJECTION FRACTION 55-60%. NORMAL WALL MOTION. MILD TRICUSPID REGURGITATION, MITRAL REGURGITATION, AORTIC INSUFFICIENCY. TECHNOLOGIST: BELKYS ABREU
--- NOTE | 2022-07-24 19:14 | P.PN ---
Subjective Date of Service: 07/24/22 Chief Complaint: JEN, hypoglycemia No acute events overnight. He denies any particular concerns this morning. He states that his left-sided visual deficits are still present and are unchanged compared to yesterday. Review of Systems 10-point ROS is otherwise unremarkable General: Weakness Eyes: Vision Change Physical Examination - Vital Signs Temperature: 96.9 F Blood Pressure: 161/83 Pulse: 67 Respirations: 17 Pulse Ox (%): 96 - Physical Exam General: Alert, In no apparent distress, Oriented x3 HEENT: Atraumatic, PERRLA, Mucous membr. moist/pink, EOMI, Sclerae nonicteric Neck: Supple, JVD not distended Respiratory: Clear to auscultation bilaterally, Normal air movement Cardiovascular: No edema, Regular rate/rhythm, Normal S1 S2, No gallops, No rubs, No murmurs Gastrointestinal: Normal bowel sounds, Soft and benign, Non-distended Musculoskeletal: No clubbing Integumentary: No rashes Neurological: Normal speech, Cranial nerves 3-12 intact, Normal affect, Other (left homonymous hemianopia) - Studies Laboratory Data (last 24 hrs) 07/24/22 05:58: Sodium 139, Potassium 3.8, BUN 31 H, Creatinine 1.21, Glucose 36 L*, Total Bilirubin 0.6, AST 25, ALT 90 H, Alkaline Phosphatase 64, Triglycerides 253 H, Cholesterol 170, HDL Cholesterol 47, Cholesterol/HDL Ratio 3.62 07/24/22 05:58: WBC 9.90, Hgb 15.4, Hct 45.9, Plt Count 216 Microbiology Data (last 24 hrs): 07/23/22 04:42 Blood - Blood Anaerobic Blood Culture - Final Assessment And Plan - Plan NIH Stroke Scale 1a. Level of consciousness: 0 - Alert; keenly responsive 1b. LOC questions: 0 - Both questions right 1c. LOC commands: 0 - Performs both tasks 2. Best Gaze: 0 - Normal 3. Visual: 1 - partial hemianopia 4. Facial Palsy: 0 - Normal symmetry 5a. Motor left arm: 0 - No drift for 10 seconds 5b. Motor right arm: 0 - No drift for 10 seconds 6a. Motor left le - No drift for 5 seconds 6b. Motor right le - No drift for 5 seconds 7. Limb ataxia: 0 - No ataxia 8. Sensory: 0 - Normal; no sensory loss 9. Best Language: 0 - Normal; no aphasia 10. Dysarthria: 0 - Normal 11. Extinction and Inattention: 0 - No abnormality 12. 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 Barraza - recommendations appreciated - No neurologic deficits on my exam - NIHSS = 1 - CT head= "subacute infarct right occipital lobe" - q4hr neurochecks - Ordered MR brain + MRA head/neck - Ordered TTE - PT/OT evaluation requested - Ordered risk profile: Hgb A1c, lipid panel, TSH - Started aspirin, atorvastatin, folic acid, clopidogrel # KDIGO Stage I Acute Kidney Injury on Chronic Kidney Disease Stage III - Creatinine = 1.99 -> 1.21 - Urinalysis = trace protein - Monitor creatinine and urine output - If worsening, obtain renal ultrasound - Renally dose medications # 09/16 Blood Cultures positive for Escherichia Coli (07/17/2022) - Continue ceftriaxone - Repeat blood cultures ordered # Hypoglycemia in Type II Diabetes Mellitus - Hold home medications while hospitalized - Monitor glucose levels # Hypertension - Continue home meds Bhargav Keita M.D.
[2022-07-24] MEDS: ATORVASTATIN 40 MG TAB PO SCH (21:08)
--- NOTE | 2022-07-24 22:27 | CON ---
Reason For Consultation: Consultation called because of stroke. History Of Present Illness: Mr. Campbell is an 81-year-old patient with hypertension, diabetes mellitu s type 2, chronic kidney disease with an episode of hypoglycemia with diffuse weakness and was actual ly at [facility] on the 17 of July, discharged on and diagnosed with influenza as a possible etiology for his weakness. In addition, blood cultures did show 1 of 4 bottles with E coli . He did go home on Tamiflu and cefdinir. The patient noted on the day of admission that he had dorian den onset of apparent shade of gold like curtain coming down when he would look over to the right and this was in the visual field. He did not have any new or focal weakness in the face, arm, or the le g. At [facility], he was not immediately evaluated for stroke or was not on a code stroke w [facility], but CT scan, which was done at 11:45 a.m. identified a subacute right occipital lobe infarct. The patient's emergency room arrival time was at 12:38 in the morning on 07/23/2022. Obviously at th at point, his CT scan was well beyond the 4.5 hour window for tPA. He was treated with an aspirin, w hich he was not taking along with folic acid, statin, and Plavix and given IV fluids. His initial ch est x-ray done on 07/23/2022 showed no evidence of any acute intrathoracic disease. His complete blo od count with differential showed a normal white blood cell count, but slight elevation of neutrophil s to around 84.7 initially, otherwise lymphocytes at 10.2, which is slightly low, but otherwise compl etely normal. His chemistries did show low blood glucose earlier today of 36 and liver function stud ies showed elevated ALT of 90. Hemoglobin A1c was 5.6. TSH 0.738, free T4 1.14, LDL cholesterol 72, HDL 47. Urinalysis does show trace protein, otherwise normal and COVID test was negative. His brain MRI, which was done earlier today identified a 3 cm acute right medial occipital lobe strok e, which likely accounts for the patient's left visual field deficit. On further questioning, he did say he was bumping into things on the left side when he would walk past objects. MRA of the head an d neck showed no significant occlusion. Past Medical History: As noted. Prostate cancer, hypertension and diabetes. Family History: Positive for cancer in father. Social History: No tobacco. Occasional alcohol use and no caffeinated beverages. Allergies: NO KNOWN DRUG ALLERGIES. Medications: Alprazolam 2 mg daily, Norvasc 5 mg daily, Coreg 3.125 mg twice daily, vitamin D 1250 m cg daily, Lasix 20 mg daily, glimepiride 2 mg twice daily, [place] 10/325 one every 4 hours as needed, Singulair 10 mg daily, Flomax 0.4 mg daily, bupropion 100 mg twice daily, Ventolin inhaler 2 puffs ev nestor 6 hours as needed, Tamiflu 75 mg twice daily, Deltasone 20 mg twice daily, and cefdinir 300 mg tw ice daily. Review of Systems: He does report some diffuse weakness in upper and lower extremities and fatigue. He did have visual disturbance as noted in the left visual field. Otherwise, no fevers or chills. Some myalgias and ar thralgias. No rash. No psychiatric issues and no other positives on a 10 point systems review. Physical Examination: Vital Signs: Blood pressure 161/83, pulse 67, respiratory rate 16, temperature 97, oxygen saturation 97% on 3 L, FiO2 32. Weight 170 pounds, height 5 feet 8 inches, BMI 25.8. General: Mr. Campbell is resting in bed. He is in no significant distress. HEENT: He is normocephalic, atraumatic. Sclerae anicteric. Oropharynx is pink and moist. Neck: Supple. Chest: Clear. Heart: Regular. Extremities: No clubbing, cyanosis, or edema. Neurologic: He does have a mild left homonymous hemianopsia. It is partial. Otherwise, cranial ner ves 2 through 12 intact. Motor in the upper and lower extremities intact. No focal deficits. Senso ry exam with stocking-glove loss to light touch and temperature. Reflexes depressed in upper and low er extremities. Coordination intact. In terms of gait, he ambulated 20 feet with standby assistance using a rolling walker, which he has used regularly. Assessment: Mr. Campbell is an 81-year-old patient with a right 3 cm medial occipital stroke producing a left homonymous hemianopsia that is partial. He does have hypertension, diabetes, and had an epis ode of very low blood glucose around 36 earlier today. He had low blood sugars yesterday at 30-34, h ighest blood sugar 110. He is on cefdinir for possible pneumonia which chest x-ray is clear. Plan: 1.His diabetes management appears to be somewhat aggressive and may require a decrease in oral hypog lycemics .. 2.He should be on the aspirin, Plavix, folic acid, and statin. His LDL is 72. He may require some physical therapy to help him negotiate corners and around the sharp objects due to his left visual fi eld deficits. He was told that perhaps 3 or [address] as the visual deficit stabilizes, he may benefit from prism lenses in the left side. Otherwise, once he has finished his acute treatm ent, he may be discharged home with followup in Dr. Barraza's clinic in 1 month. SHANTE/LEONEL Voice ID: [id number] Report ID: [id number]
[2022-07-25 03:39] LABS: Absolute Lymphocytes (CBC) 1.2 K/uL (0.7-4.9); Hematocrit 44.2 % (39.6-49.0); Lymphocytes % 17.3 % (15.3-44.8); MCV 89.1 fL (80-100); MPV 8.4 fL (7.6-11.3); RBC Red Blood Cell Count 4.96 M/uL (4.33-5.43)
[2022-07-25 03:58] LABS: Albumin 2.8 g/dL (3.4-5.0); Bilirubin Total 0.7 mg/dL (0.2-1.0); Potassium 4.1 mmol/L (3.5-5.1); Protein, Total 6.6 g/dL (6.4-8.2)
[2022-07-25] MEDS: INSULIN -REGULAR HUMAN 50 UNIT/0.5 ML ML SQ SCH ×2 (07:30→11:30)
[2022-07-25] MEDS: CEFTRIAXONE 1,000 MG in NA CHLORIDE 0.9% 50 ML IVPB SCH (08:28)
[2022-07-25] MEDS: HEPARIN 5000 UNIT/ML 1 ML VIAL SQ SCH (08:30)
[2022-07-25] MEDS: CLOPIDOGREL 75 MG TABLET PO SCH (08:30)
[2022-07-25] MEDS: FOLIC ACID 1 MG TABLET PO SCH (08:30)
[2022-07-25] MEDS: ASPIRIN 81 MG CHEWABLE TABLET PO SCH (08:30)
[2022-07-25 12:18] VITALS: BP 136/71; TEMP 97.2
[2022-07-25 13:26] VITALS: O2SAT 92
--- NOTE | 2022-07-25 14:08 | P.DS ---
Admission Date: 07/23/22 Discharge Date: 07/25/22 Disposition: ROUTINE DISCHARGE Discharge Condition: GOOD Reason for Admission: JEN, hypoglycemia Consultations: 1. 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 Qamar Campbell is a pleasant 81 year old male with a past medical history significant for chronic kidney disease stage III (baseline creatinine ~1.[address] Hercules), type 2 diabetes mellitus, and hypertension who was admitted to the [facility] on 07/23/2022 for generalized weakness and hypoglycemia. He was admitted to the Medicine service. Upon evaluation, he reported significant leftsided visual deficits. A CT of the head was obtained which revealed, "subacute infarct right occipital lobe." An MRI head revealed, "3 cm acute to subacute time frame right medial occipital lobe infarct. No hemorrhage or midline shift evident." MR angiogram head revealed, "no significant flow abnormality of the [place] of Ng is identified." MR angiogram neck revealed, "50% narrowing of the post bulbar left internal carotid artery." Transthoracic echocardiogram revealed, "normal left ventricular ejection fraction 55-60%. normal wall motion. mild tricuspid regurgitation, mitral regurgitation, aortic insufficiency." Neurology was consulted and he was evaluated by Dr. Barraza. He recommended aspirin, atorvastatin, clopidogrel, and folic acid. Over the course of his hospitalization, his symptoms improved significantly. He worked with physical therapy, and per their recommendations, it was thought that he would benefit most from home health with PT/OT services. With the assistance of case management, this was arranged. On 07/25/2022, he was seen on morning rounds and deemed medically stable for discharge. He was discharged with instructions to schedule follow-up appointments with his PCP (Dr. Nixon), with Neurology (Dr. Barraza), and with his Spin Instructor (Dr. Hercules). He was advised to complete his current home prescription for cefdinir and to stop taking glipizide. He was provided prescriptions for atorvastatin and clopidogrel. He and his family members were given the opportunity to ask questions and reported no further questions. Furthermore, all questions were answered to the best of my ability. A copy of this discharge summary will be sent to the above providers to facilitate continuity of care. Today, I personally spent 25 minutes on his case, of which greater than 50% of the time was spent in patient education, counseling, and coordination of care as described above. - Physical Exam General: Alert, In no apparent distress, Oriented x3 HEENT: Atraumatic, PERRLA, Mucous membr. moist/pink, EOMI, Sclerae nonicteric Neck: Supple, JVD not distended Respiratory: Clear to auscultation bilaterally, Normal air movement Cardiovascular: No edema, Regular rate/rhythm, Normal S1 S2, No gallops, No rubs, No murmurs Gastrointestinal: Normal bowel sounds, Soft and benign, Non-distended Musculoskeletal: No clubbing Integumentary: No rashes Neurological: Normal speech, Cranial nerves 3-12 intact, Normal affect, Other (left homonymous hemianopia) NIH Stroke Scale 1a. Level of consciousness: 0 - Alert; keenly responsive 1b. LOC questions: 0 - Both questions right 1c. LOC commands: 0 - Performs both tasks 2. Best Gaze: 0 - Normal 3. Visual: 1 - partial hemianopia 4. Facial Palsy: 0 - Normal symmetry 5a. Motor left arm: 0 - No drift for 10 seconds 5b. Motor right arm: 0 - No drift for 10 seconds 6a. Motor left le - No drift for 5 seconds 6b. Motor right le - No drift for 5 seconds 7. Limb ataxia: 0 - No ataxia 8. Sensory: 0 - Normal; no sensory loss 9. Best Language: 0 - Normal; no aphasia 10. Dysarthria: 0 - Normal 11. Extinction and Inattention: 0 - No abnormality 12. Distal motor function: 0 - No abnormality Total Score: 1 Vital Signs/Physical Exam: Temp Pulse Resp BP Pulse Ox 97.2 F 62 18 136/71 94 07/25/22 12:00 07/25/22 12:00 07/25/22 12:00 07/25/22 12:00 07/25/22 12:00 Laboratory Data at Discharge: WBC 7.20 K/uL (4.3-10.9) 07/25/22 03:28 Hgb 14.8 g/dL (13.6-17.9) 07/25/22 03:28 Hct 44.2 % (39.6-49.0) 07/25/22 03:28 Plt Count 205 K/uL (152-406) 07/25/22 03:28 Sodium 140 mmol/L (136-145) 07/25/22 03:28 Potassium 4.1 mmol/L (3.5-5.1) 07/25/22 03:28 BUN 23 mg/dL (7-18) H 07/25/22 03:28 Creatinine 1.37 mg/dL (0.55-1.3) H 07/25/22 03:28 Glucose 145 mg/dL (74-106) H 07/25/22 03:28 Total Bilirubin 0.7 mg/dL (0.2-1.0) 07/25/22 03:28 AST 14 U/L (15-37) L 07/25/22 03:28 ALT 64 U/L (12-78) 07/25/22 03:28 Alkaline Phosphatase 63 U/L (45-117) 07/25/22 03:28 Triglycerides 253 mg/dL (<150) H 07/24/22 05:58 Cholesterol 170 mg/dL (<200) 07/24/22 05:58 HDL Cholesterol 47 mg/dL (40-60) 07/24/22 05:58 Cholesterol/HDL Ratio 3.62 07/24/22 05:58 Home Medications: ALPRAZolam [Alprazolam] 2 mg PO DAILY 09/15/21 Amlodipine [Norvasc*] 5 mg PO DAILY 09/15/21 Carvedilol [Coreg] 3.125 mg PO BID 09/15/21 Ergocalciferol (Vitamin D2) [Vitamin D2] 1,250 mcg PO SEECOM 09/15/21 Furosemide [Lasix*] 20 mg PO DAILY 09/15/21 Hydrocodone Bit/Acetaminophen [Hydrocodon-Acetaminophn 10-325] 1 tab PO QID 09/15/21 Montelukast [Singulair*] 10 mg PO DAILY 09/15/21 Tamsulosin [Flomax*] 0.4 mg PO DAILY 09/15/21 buPROPion HCL [Bupropion HCl] 100 mg PO BID 09/15/21 Albuterol Inhaler [Ventolin Inhaler*] 2 puff IH Q6H PRN #1 inh 07/18/22 predniSONE [Prednisone*] 20 mg PO BID #11 tab 07/18/22 Cefdinir [Cefdinir*] 300 mg PO BID #14 cap 07/19/22 Aspirin Chewable [Aspirin Chewable*] 81 mg PO DAILY tab.chew 07/25/22 Atorvastatin Calcium [Lipitor] 40 mg PO BEDTIME #30 tab 07/25/22 Clopidogrel Bisulfate [Plavix*] 75 mg PO DAILY #30 tab 07/25/22 Folic Acid 1 mg PO DAILY #30 07/25/22 New Medications: Folic Acid 1 mg PO DAILY #30 Atorvastatin Calcium [Lipitor] 40 mg PO BEDTIME #30 tab Clopidogrel Bisulfate [Plavix*] 75 mg PO DAILY #30 tab Physician Discharge Instructions: 1. Please call and schedule an appointment with your PCP (Dr. Nixon) in 3-5 days 2. Please call and schedule an appointment with Neurology (Dr. Barraza) in 5-7 days 3. Please call and schedule an appointment with your Spin Instructor (Dr. Hercules) in 5-7 days - Please schedule repeat blood work in 1-2 days to follow-up your kidney function 4. Please complete the antibiotic course of cefdinir prescribed to you last visit 5. Please completely stop taking glipizide Diet: Renal Activity: Ad tomasz Followup: Meagan Hercules MD [ACTIVE - CAN ADMIT] - Storm Barraza MD [ASSOCIATE-ACTIVE - CAN ADMIT] - Tiffani LAW,John William DO [ACTIVE - CAN ADMIT] - Time spent managing pt's care (in minutes): 25
== END 2022-07-25 15:46 | disposition home or self-care (01) | DRG 682 ==
LOC: ER 00:30 → ERHOLD 03:08 → 2ND 04:46 → OBSVTOIN 07-24 10:57
PROVIDERS: ADMIT Internal Medicine; ATTEND Internal Medicine
DX: N17.9 Acute kidney failure, unspecified (principal); I63.9 Cerebral infarction, unspecified; I12.9 Hypertensive chronic kidney disease with stage 1 through stage 4 chronic kidney disease, or unspecified chronic kidney disease; N18.30 Chronic kidney disease, stage 3 unspecified; E11.22 Type 2 diabetes mellitus with diabetic chronic kidney disease; E11.649 Type 2 diabetes mellitus with hypoglycemia without coma; I08.3 Combined rheumatic disorders of mitral, aortic and tricuspid valves; I65.22 Occlusion and stenosis of left carotid artery; H53.462 Homonymous bilateral field defects, left side; R29.701 NIHSS score 1; Z60.2 Problems related to living alone; Z79.52 Long term (current) use of systemic steroids; Z79.02 Long term (current) use of antithrombotics/antiplatelets; Z79.82 Long term (current) use of aspirin; Z85.46 Personal history of malignant neoplasm of prostate; Z79.84 Long term (current) use of oral hypoglycemic drugs; Z79.899 Other long term (current) drug therapy; Z87.891 Personal history of nicotine dependence; Z20.822 Contact with and (suspected) exposure to COVID-19
CPT/HCPCS: 36415; 70450; 70544; 70549; 70553; 71045; 80048; 80053; 80061; 80076; 81001; 82947; 83036; 83880; 84439; 84443; 84484; 85025; 87040; 87811; 93005; 93306; 94010; 96360; 97112; 97116; 97161; 97530; 99285; A9577; G0378; J1644; J7120

== ENCOUNTER 2024-06-27 08:28 | Emergency (ER) | payer OTHER ==
--- OUTSIDE RECORDS SUMMARY | 2024-06-27 08:32 | XMS REPORT | Continuity of Care Document ---
Author Name Unknown Address [address] [place] [id number] [facility] thconnect Address [address] [place] [address] Care Team Providers Care Chocolate Dipper Name Role Phone John Nixon Attending Clinician Unavailable TL PERSAUD Attending Clinician Unavailable EVNA BOSCH Attending Clinician Unavailable ANABELA JIMENEZ Attending Clinician Unavailable Nick Quinteros MD Attending Clinician [facility] Attending Clinician Unavailable NICK QUINTEROS Attending Clinician Annabelle vailable ISA GALO Attending Clinician Unavailable Caleb Rubio Attending Clinician Unavailab Caleb Tracey Attending Clinician Unavailab Caleb Tracey Admitting Clinician Unavailab le Payers Payer Name Policy Type Policy Number Effective Date Expirati on Date Source MEDICARE PART A AND B [id number] 2020 00:00:00 2020 00:00:[address] [facility] WELLMED [id number] 2020 00:00:00 AAR Medicare Complete 53 [id number] Common [facility] Problems Condition Name Condition Details Condition Category Status Onset Date Resolution Date Last Treatment Date Treating Clinician Comments Source [id number] BPH loc w urin obs/LUTS Problem [facility] [id number] Pain, joint, shoulder, left Problem [facility] [id number] Prostate cancer Problem [facility] [id number] Urge incontinen ce Problem [facility] No known active problems No known active problems Disease [facility] Allergies, Adverse Reactions, Alerts Allergy Name Allergy Type Status Severity Reaction(s) Onset Date Inactive Date Treating Clinician Comments Source No Known Allergie s Drug Active [facility] NO KNOWN ALLERGIE S Drug Class Active [facility] Social History Social Habit Start Date Stop Date Quantity Comments Source History of Tobacco Use [facility] Sex Assigned At [facility] Alcohol intake 2021-01-23 00:00:00 2021-01-23 00:00:00 Current non-drinker of alcohol (finding) [facility] Tobacco use and exposure 2021-01-23 00:00:00 2021-01-23 00:00:00 Never used [facility] Smoking Status Start Date Stop Date Source Former Smoker 2023-09-15 00:00:00 2023-09-15 00:00:00 [facility] Current every day smoker 2021-01-23 00:00:00 [facility] Medications Ordered Medication Name Filled Medication Name Start Date Stop Date Current Medication? Ordering Clinician Indication Dosage Frequency Signature (SIG) Comments Components Source Tamsulosin HCl 0.4 MG Tamsulosin HCl 0.4 MG 09-17 00:00: 00 No 1{capsu le} QD Tamsulosin HCl 0.4 MG Tamsulosin HCl 0.4 MG Tamsulosin HCl 0.4 MG 09-17 00:00: 00 No 1{capsu le} QD Tamsulosin HCl 0.4 MG Tamsulosin HCl 0.4 MG Tamsulosin HCl 0.4 MG 09-17 00:00: 00 No 1{capsu le} QD Tamsulosin HCl 0.4 MG Tamsulosin HCl 0.4 MG Tamsulosin HCl 0.4 MG 09-17 00:00: 00 No 1{capsu le} QD Tamsulosin HCl 0.4 MG Tamsulosin HCl 0.4 MG Tamsulosin HCl 0.4 MG 09-17 00:00: 00 No 1{capsu le} QD Tamsulosin HCl 0.4 MG Tamsulosin HCl 0.4 MG Tamsulosin HCl 0.4 MG 09-17 00:00: 00 09-12 00:00 :00 No 1{capsu le} QD Tamsulosin HCl 0.4 MG HYDROCHLORO THIAZIDE ORAL 2018-09 17:07: 06 Yes 12.5mg Take 12.5 mg by mouth daily. [facility] amlodipine- benazepril 5-20 mg per capsule 2018-09 17:07: 06 Yes 1{capsu le} Take 1 capsule by mouth daily. [facility] buPROPion SR 100 mg SR tablet 2018-09 17:07: 06 Yes 100mg Take 100 mg by mouth 2 (two) times daily. [facility] glimepiride 2 mg tablet 2018-09 17:07: 06 Yes 2mg Take 2 mg by mouth daily with breakfast. [facility] levoFLOXaci n (LEVAQUIN) 500 mg tablet 12-02 00:00: 00 Yes 500mg Take 1 tablet by mouth SEE-INSTRU CTIONS. Take 1 PO the day before procedure, 1 PO morning of the procedure, 1 PO day after procedure [facility] ALPRAZolam 1 mg tablet 11-06 00:00: 00 Yes .5{tbl} Take 0.5 tablets by mouth daily. [facility] Glimepiride 2 MG Glimepiride 2 MG No 1{table t_with_ breakfa st_or_t he_firs t_main_ meal_of _the_da y} QD Glimepirid e 2 MG Atorvastati n Calcium 40 MG Atorvastati n Calcium 40 MG No Atorvastat in Calcium 40 MG Montelukast Sodium 10 MG Montelukast Sodium 10 MG No Montelukas t Sodium 10 MG ALPRAZolam 2 MG ALPRAZolam 2 MG No ALPRAZolam 2 MG buPROPion HCl buPROPion HCl No buPROPion HCl Melatonin 3 MG Melatonin 3 MG No 1{table t_at_be dtime_a s_neede d} QD Melatonin 3 MG HYDROcodone -Acetaminop hen 10-325 MG HYDROcodone -Acetaminop hen 10-325 MG No HYDROcodon e-Acetamin ophen 10-325 MG Glimepiride 2 MG Glimepiride 2 MG No 1{table t_with_ breakfa st_or_t he_firs t_main_ meal_of _the_da y} QD Glimepirid e 2 MG Atorvastati n Calcium 40 MG Atorvastati n Calcium 40 MG No Atorvastat in Calcium 40 MG Montelukast Sodium 10 MG Montelukast Sodium 10 MG No Montelukas t Sodium 10 MG ALPRAZolam 2 MG ALPRAZolam 2 MG No ALPRAZolam 2 MG buPROPion HCl buPROPion HCl No buPROPion HCl Melatonin 3 MG Melatonin 3 MG No 1{table t_at_be dtime_a s_neede d} QD Melatonin 3 MG HYDROcodone -Acetaminop hen 10-325 MG HYDROcodone -Acetaminop hen 10-325 MG No HYDROcodon e-Acetamin ophen 10-325 MG Glimepiride 2 MG Glimepiride 2 MG No 1{table t_with_ breakfa st_or_t he_firs t_main_ meal_of _the_da y} QD Glimepirid e 2 MG Atorvastati n Calcium 40 MG Atorvastati n Calcium 40 MG No Atorvastat in Calcium 40 MG Montelukast Sodium 10 MG Montelukast Sodium 10 MG No Montelukas t Sodium 10 MG ALPRAZolam 2 MG ALPRAZolam 2 MG No ALPRAZolam 2 MG buPROPion HCl buPROPion HCl No buPROPion HCl Melatonin 3 MG Melatonin 3 MG No 1{table t_at_be dtime_a s_neede d} QD Melatonin 3 MG HYDROcodone -Acetaminop hen 10-325 MG HYDROcodone -Acetaminop hen 10-325 MG No HYDROcodon e-Acetamin ophen 10-325 MG Glimepiride 2 MG Glimepiride 2 MG No 1{table t_with_ breakfa st_or_t he_firs t_main_ meal_of _the_da y} QD Glimepirid e 2 MG Atorvastati n Calcium 40 MG Atorvastati n Calcium 40 MG No Atorvastat in Calcium 40 MG Montelukast Sodium 10 MG Montelukast Sodium 10 MG No Montelukas t Sodium 10 MG ALPRAZolam 2 MG ALPRAZolam 2 MG No ALPRAZolam 2 MG buPROPion HCl buPROPion HCl No buPROPion HCl Melatonin 3 MG Melatonin 3 MG No 1{table t_at_be dtime_a s_neede d} QD Melatonin 3 MG HYDROcodone -Acetaminop hen 10-325 MG HYDROcodone -Acetaminop hen 10-325 MG No HYDROcodon e-Acetamin ophen 10-325 MG HYDROcodone -Acetaminop hen 10-325 MG HYDROcodone -Acetaminop hen 10-325 MG No HYDROcodon e-Acetamin ophen 10-325 MG ALPRAZolam 2 MG ALPRAZolam 2 MG No ALPRAZolam 2 MG buPROPion HCl buPROPion HCl No buPROPion HCl Glimepiride 2 MG Glimepiride 2 MG No 1{table t_with_ breakfa st_or_t he_firs t_main_ meal_of _the_da y} QD Glimepirid e 2 MG Montelukast Sodium 10 MG Montelukast Sodium 10 MG No Montelukas t Sodium 10 MG Atorvastati n Calcium 40 MG Atorvastati n Calcium 40 MG No Atorvastat in Calcium 40 MG Melatonin 3 MG Melatonin 3 MG No 1{table t_at_be dtime_a s_neede d} QD Melatonin 3 MG Aspirin 81 81 MG Aspirin 81 81 MG No 1{table t} QD Aspirin 81 81 MG No Known Medications No Known Medications No Common [facility] Vital Signs Vital Name Observation Time Observation Value Comments S cliffce height 2023-09-15 11:00:00 67 [in_i] Commo n [facility] weight 2023-09-15 11:00:00 169.2 [lb_av] Co mmon [facility] temperature 2023-09-15 11:00:00 97.6 [degF] Com mon [facility] bmi 2023-09-15 11:00:00 26.5 kg/m2 Commo n [facility] oximetry 2023-09-15 11:00:00 96 % Commo n [facility] respiratory rate 2023-09-15 11:00:00 18 /min Common [facility] blood pressure systolic 2023-09-15 11:00:00 136 mm[Hg] Common [facility] blood pressure diastolic 2023-09-15 11:00:00 68 mm[Hg] Common Spiri t [facility] height 2023-03-17 10:45:00 67 [in_i] Commo n [facility] weight 2023-03-17 10:45:00 171.8 [lb_av] Co mmon [facility] temperature 2023-03-17 10:45:00 98.2 [degF] Com mon [facility] bmi 2023-03-17 10:45:00 26.9 kg/m2 Commo n [facility] oximetry 2023-03-17 10:45:00 99 % Commo n [facility] blood pressure systolic 2023-03-17 10:45:00 123 mm[Hg] Common Spiri [facility] blood pressure diastolic 2023-03-17 10:45:00 61 mm[Hg] Common Spiri t [facility] height 2023-02-15 08:30:00 67 [in_i] Commo n [facility] weight 2023-02-15 08:30:00 172 [lb_av] Comm on [facility] temperature 2023-02-15 08:30:00 96.8 [degF] Com mon [facility] bmi 2023-02-15 08:30:00 26.94 kg/m2 Comm on [facility] blood pressure systolic 2023-02-15 08:30:00 132 mm[Hg] Common Spiri t [facility] blood pressure diastolic 2023-02-15 08:30:00 74 mm[Hg] Common [facility] height 2022-09-17 14:45:00 67 [in_i] Commo n [facility] weight 2022-09-17 14:45:00 164.2 [lb_av] Co on [facility] temperature 2022-09-17 14:45:00 97.9 [degF] Com mon [facility] bmi 2022-09-17 14:45:00 25.71 kg/m2 Comm on [facility] oximetry 2022-09-17 14:45:00 96 % Commo n [facility] respiratory rate 2022-09-17 14:45:00 16 /min [facility] blood pressure systolic 2022-09-17 14:45:00 136 mm[Hg] [facility] blood pressure diastolic 2022-09-17 14:45:00 66 mm[Hg] Common [facility] height 2022-04-23 14:30:00 67 [in_i] Commo n [facility] weight 2022-04-23 14:30:00 182.8 [lb_av] Co [facility] temperature 2022-04-23 14:30:00 97.8 [degF] Com mon [facility] bmi 2022-04-23 14:30:00 28.63 kg/m2 Comm on [facility] oximetry 2022-04-23 14:30:00 94 % Commo n [facility] respiratory rate 2022-04-23 14:30:00 17 /min Common [facility] blood pressure systolic 2022-04-23 14:30:00 162 mm[Hg] [facility] blood pressure diastolic 2022-04-23 14:30:00 72 mm[Hg] [facility] Systolic blood pressure 2021-01-23 13:48:00 165 mm[Hg] [facility] Diastolic blood pressure 2021-01-23 13:48:00 73 mm[Hg] [place] [facility] Heart rate 2021-01-23 13:48:00 76 /min [facility] Body temperature 2021-01-23 13:48:00 36.39 Yesika [facility] Respiratory rate 2021-01-23 13:48:00 18 /min [facility] Body height 2021-01-23 13:48:00 172.7 cm [facility] Body weight 2021-01-23 13:48:00 85.957 kg [facility] BMI 2021-01-23 13:48:00 28.81 kg/m2 [facility] Height/Length Measured 2021-09-30 12:12:10 172.72 cm Weight Dosing 2021-09-30 12:12:10 81.64 kg Height/Length Measured 2021-09-30 12:11:53 172.72 cm Weight Dosing 2021-09-30 12:11:53 81.64 kg Height/Length Measured 2021-09-30 12:11:42 172.72 cm Weight Dosing 2021-09-30 12:11:42 81.64 kg Height/Length Measured 2020-05-16 12:43:20 Weight Dosing 2020-05-16 12:43:20 Procedures Procedure Date / Time Performed Performing Clinicia n Source PVR 2023-09-15 00:00:00 Common [facility] PROSTATIC SPECIFIC ANTIGEN 2021-01-23 14:34:00 Nick Quinteros [facility] Encounters Start Date/Time End Date/Time Encounter Type Admission Type Attending Clinicians Care Facility Care Department Encounter ID Source 2023-02-15 12:31:00 Outpatient John Nixon [facility] [id number] [facility] 2022-04-23 14:00:01 Outpatient John Nixon [facility] [id number] [facility] 2022-04-07 06:15:21 Outpatient [facility] [id number] [facility] 2021-09-01 01:05:34 Outpatient TL PERSAUD [facility] [id number] [facility] 2021 11:17:52 Outpatient [facility] [id number] [facility] 2021-06-24 11:41:27 Outpatient EVAN BOSCH [facility] [id number] [facility] 2021-06-16 11:57:29 Outpatient ANABELA JIMENEZ [facility] [id number] [facility] 2021-06-11 12:02:07 Outpatient ANABELA JIMENEZ [facility] [id number] [facility] 2023-09-15 00:00:00 2023-09-15 00:00:00 OFFICE VISIT ESTAB PT LEVEL 3 STLMLC STLMLC [id number] [facility] 2023-04-15 00:00:00 2023-04-15 00:00:00 (TEL) STLMLC STLMLC [id number] [facility] 2023-03-17 00:00:00 2023-03-17 00:00:00 OFFICE VISIT ESTAB PT LEVEL 3 STLMLC STLMLC [id number] [facility] 2023-02-16 00:00:00 2023-02-16 00:00:00 (TEL) STLMLC STLMLC [id number] [facility] 2023-02-15 00:00:00 2023-02-15 00:00:00 OFFICE VISIT NEW PT LEVEL 3 STLMLC STLMLC [id number] [facility] 2022-09-17 00:00:00 2022-09-17 00:00:00 OFFICE VISIT EST PT LEVEL 3 STLMLC STLMLC [id number] [facility] 2022-04-23 00:00:00 2022-04-23 00:00:00 OFFICE VISIT NEW PT LEVEL 3 STLMLC STLMLC [id number] [facility] 2021-02-12 00:00:00 2021-02-12 00:00:00 Telephone Nick Quinteros [facility] [id number] [facility] 2021-01-24 00:00:00 2021-01-24 00:00:00 Telephone Aldair [facility] [id number] [facility] 2021-01-23 09:25:30 2021-01-23 09:29:17 Skein Inspector Visit [facility] Aldair [facility] [id number] [facility] 2021-01-23 08:39:05 2021-01-23 09:26:37 Office Visit Aldair [facility] [id number] [facility] 2021-01-23 09:00:00 2021-01-23 09:00:00 Outpatient Issac NICK QUINTEROS [facility] [id number] [facility] 2021-01-23 00:00:00 2021-01-23 00:00:00 Telephone Aldair [facility] [id number] [facility] 2020-12-20 14:10:00 2020-12-20 14:10:00 Outpatient ISA VILLAFUERTE [facility] [id number] [facility] 2020-11-29 14:10:00 2020-11-29 14:10:00 Outpatient ISA VILLAFUERTE [facility] [id number] [facility] 2020-05-16 10:47:00 2020-05-16 23:59:00 Outpatient 3 Caleb Rubio Keith [facility] [id number] [facility] 2020-05-16 10:47:00 2020-05-16 10:47:00 Outpatient 3 Caleb Rubio Keith [facility] [id number] [facility] 2020-02-01 08:15:00 2020-02-01 08:15:00 Outpatient NICK WHITE [facility] [id number] [facility] 2020-02-01 07:41:50 2020-02-01 07:56:50 Telemedici ne Visit Nick Quinteros [facility] [id number] [facility] 2019-07-27 10:45:00 2019-07-27 11:27:21 Outpatient R NICK QUINTREOS [facility] [id number] [facility] Results Test Description Test Time Test Comments Results Result Co mments Source [facility] [id number] 16:41:06 * Test Item Value Reference Range Interpretation Comme nts PSA (test code = 4271532911) 6.24 ng/mL See_Comment H [Automated message] The system which generated this result transmitted reference range: <=4.00. The reference range was not used to interpret this result as normal/abnormal. CINDY (test code = CINDY) Biotin has been reported to cause a negative bias, interpret results relative to patient's use of biotin. Lab Interpretation (test code = 21836-8) Abnormal [facility] [id number] 12:05:24* Test Item Value Reference Range Interpretation Comme [facility] Glucose POC (test code = Glucose POC) 68 mg/dL 70-115 L If you consi joni your patient critically ill, the Magdalena-Accu Check Infrom II meter should not be used for Glucose determination. Draw a venous Glucose and send to the main Lab for analysis.
[2024-06-27] MEDS ORDERED: CEPHALEXIN 250 MG CAP ONE (10:06)
[2024-06-27] MEDS ORDERED: KETOROLAC 30 MG/ML INJ ONE (10:07)
[2024-06-27] MEDS ORDERED: MUPIROCIN 2% OINT 22GM TUBE TOP ONE (10:08)
--- NOTE | 2024-06-27 10:15 | RAD REPORT ---
Exam:Hand Left 3 View CLINICAL HISTORY: Left hand pain FINDINGS: No fracture or dislocation seen
--- NOTE | 2024-06-27 10:24 | ER ---
Nurse's Notes [facility] Name: Qamar Campbell Age: 83 yrs Sex: Male : 1940 Arrival Date: 06/27/2024 Time: 08:28 Bed 11 Private MD: Diagnosis: Hand Laceration/ Open wound of hand Presentation: 06/27 08:43 Chief complaint: Patient states: was working and a piece of machinery fell on my left iw hand, tore the skin on my hand , happened yesterday afternoon , still bleeding and having pain from fingers to elbow , the lid of a zero turn mower fell on his hand as he was working on it. Coronavirus screen: At this time, the client does not indicate any symptoms associated with coronavirus-19. Ebola Screen: No symptoms or risks identified at this time. Initial Sepsis Screen: Does the patient meet any 2 criteria? No. Patient's initial sepsis screen is negative. Does the patient have a suspected source of infection? No. Patient's initial sepsis screen is negative. Risk Assessment: Do you want to hurt yourself or someone else? Patient reports no desire to harm self or others. Onset of symptoms was June 26, 2024. 08:43 Method Of Arrival: Ambulatory iw 08:43 Acuity: ELISSA 3 iw 08:45 Acuity: ELISSA 4 iw Historical: - Allergies: 08:45 No Known Allergies; iw - PMHx: 08:45 Diabetes - NIDDM; Hypertension; PROSTATE CA; iw - Immunization history:: Adult Immunizations not up to date. - Infectious Disease History:: Denies. - Social history:: Smoking status: . Screenin:45 [facility] ED Fall Risk Assessment (Adult) History of falling in the last 3 months, iw including since admission Yes- single mechanical fall (1 pt) Confusion or Disorientation No (0 pts) Intoxicated or Sedated No (0 pts) Impaired Gait No (0 pts) Mobility Assist Device Used No (0 pt) Altered Elimination No (0 pt) Score/Fall Risk Level 0 - 2 = Low Risk Oriented to surroundings, Maintained a safe environment. Abuse screen: Denies injuries from another. Nutritional screening: No deficits noted. Tuberculosis screening: No symptoms or risk factors identified. Assessment: 08:45 General: Appears uncomfortable, Behavior is anxious. Pain: Complains of pain in left iw hand. Neuro: Level of Consciousness is awake, alert, obeys commands, Oriented to person, place, time, situation, Moves all extremities. Cardiovascular: Patient's skin is warm and dry. Respiratory: Respiratory pattern is regular. GI: Abdomen is non-distended. Derm: Wound noted left hand Wound is skin tear. Musculoskeletal: Range of motion: limited in MCP of left thumb and CMC of left thumb. 10:44 Reassessment: Patient appears in no apparent distress at this time. Patient and/or iw family updated on plan of care and expected duration. Pain level reassessed. Vital Signs: 08:43 BP 146 / 100; Pulse 87; Resp 16; Temp 98.6; Pulse Ox 99% on R/A; Weight 77.11 kg; iw Height 5 ft. 8 in. ; Pain 7/10; 08:43 Body Mass Index 25.85 (77.11 kg, 172.72 cm) iw 08:43 Pain Scale: Adult iw ED Course: 08:29 Patient arrived in ED. mr 08:45 Triage completed. iw 08:45 Arm band placed on. iw 09:02 Dylan Tijerina MD is Attending Physician. ec2 09:28 Kalie Thompson, ERLINDA is Primary Nurse. iw 09:44 Hand Left 3 View XRAY In Process Unspecified. EDMS 10:46 Provided Education on: . iw 10:46 Wound care: to skin tear located on left hand was cleaned with soap and water, dressed iw with 4X4s, ABD pads, Patient tolerated well. 10:47 Patient has correct armband on for positive identification. iw 10:48 No provider procedures requiring assistance completed. Patient did not have IV access iw during this emergency room visit. Administered Medications: 10:22 Drug: Cephalexin PO 500 mg PO once Route: PO; iw 10:30 Follow up: Response: No adverse reaction iw 10:22 Drug: Ketorolac IM 30 mg IM once Route: IM; Site: right gluteus; iw 10:30 Follow up: Response: No adverse reaction iw 10:42 Drug: Bacitracin Topical Ointment (500 unit/g) 1 application Topical once Route: iw Topical; Site: affected area; Medication: 10:46 VIS not applicable for this client. iw Outcome: 10:23 Discharge ordered by . ec2 10:47 Discharged to home ambulatory, iw 10:47 Condition: good 10:47 Discharge instructions given to patient, Instructed on discharge instructions, follow up and referral plans. Demonstrated understanding of instructions, follow-up care, medications, Prescriptions given X 1, 10:48 Patient left the ED. iw Signatures: Dispatcher [employer] EDGuerline Corral, Reg Reg Kalie Thompson RN RN iw Dylan Tijerina MD MD ec2 Corrections: (The following items were deleted from the chart) 08:46 08:43 BP 146 / 100; Pulse 87bpm; Resp 16bpm; Pulse Ox 99% RA; Temp 98.6F; iw iw
--- NOTE | 2024-06-27 10:24 | EDPHYS ---
Physician Documentation [facility] Name: Qamar Campbell Age: 83 yrs Sex: Male : 1940 Arrival Date: 06/27/2024 Time: 08:28 Bed 11 Private MD: ED Physician Dylan Tijerina HPI: 06/27 09:26 This 83 yrs old Male presents to ER via Ambulatory with complaints of Skin ec2 Tear(s). 09:26 Patient arrives today for evaluation of a laceration to the back of the left hand. Was ec2 working yesterday and subsequently injured himself. Reports otherwise bleeding. Patient reports he is up-to-date on his tetanus shot. Reports otherwise no other concerns.. Historical: - Allergies: 08:45 No Known Allergies; iw - PMHx: 08:45 Diabetes - NIDDM; Hypertension; PROSTATE CA; iw - Immunization history:: Adult Immunizations not up to date. - Infectious Disease History:: Denies. - Social history:: Smoking status: . ROS: 09:26 Constitutional: as per hpi ec2 Exam: 09:26 Constitutional: GEN: NAD Head: atraumatic Eyes: EOMI Ears: External ears are ec2 normal. CV: regular rate LUNGS: no respiratory distress ABD: non-distended SKIN: Approximately 6 cm laceration to the back of the left hand, well-approximated MSK: no evidence of trauma Vital Signs: 08:43 BP 146 / 100; Pulse 87; Resp 16; Temp 98.6; Pulse Ox 99% on R/A; Weight 77.11 kg; iw Height 5 ft. 8 in. ; Pain 7/10; 08:43 Body Mass Index 25.85 (77.11 kg, 172.72 cm) iw 08:43 Pain Scale: Adult iw MDM: 09:02 Medical Screening Exam initiated ec2 09:28 Data reviewed: vital signs. ED course: Patient arrives today for evaluation of a ec2 laceration to the back of the left hand. Examination remarkable for 6 inch laceration as noted above. Will irrigate the wound, approximate with Steri-Strips, and perform wound care. Evaluating for process such as laceration, fracture. Will forego tetanus shot as patient is up-to-date. Will set the patient on Keflex as he is diabetic.. 10:23 ED course: Hand x-ray independently reviewed and interpreted by me, shows no bony ec2 fracture. Will discharge home. Return precautions given. Instructed patient on wound care and will start the patient antibiotics. . 06/27 08:49 Order name: Hand Left 3 View XRAY; Complete Time: 10:22 iw 06/27 09:25 Order name: Wound dressing; Complete Time: 10:44 ec2 06/27 09:28 Order name: Misc. Order: steri-strips, non-adherent, gauze, wrapping; Complete Time: ec2 10:44 Administered Medications: 10:22 Drug: Cephalexin PO 500 mg PO once Route: PO; iw 10:30 Follow up: Response: No adverse reaction iw 10:22 Drug: Ketorolac IM 30 mg IM once Route: IM; Site: right gluteus; iw 10:30 Follow up: Response: No adverse reaction iw 10:42 Drug: Bacitracin Topical Ointment (500 unit/g) 1 application Topical once Route: iw Topical; Site: affected area; Disposition Summary: 06/27/24 10:23 Discharge Ordered Notes: Location: Home ec2 Condition: Stable ec2 Diagnosis - Hand Laceration/ Open wound of hand ec2 Followup: ec2 - With: Private Physician - When: - Reason: Re-evaluation by your physician Discharge Instructions: - Discharge Summary Sheet ec2 - Laceration Care, Adult ec2 Forms: - Medication Reconciliation Form ec2 - Antibiotic Education ec2 - Prescription Opioid Use ec2 - Patient Portal Instructions ec2 - Leadership Thank You Letter ec2 Prescriptions: - Cephalexin 500 mg Oral capsule - take 1 capsule ORAL route every 8 hours for 5 days; 15 capsule; Refills: 0, ec2 Product Selection Permitted Signatures: Dispatcher [employer] Kalie Beach RN RN iw Dylan Tijerina MD MD ec2
[2024-06-27 12:09] VITALS: BP 146/100; TEMP 98.6; O2SAT 99
== END 2024-06-27 10:48 | disposition home or self-care (01) ==
LOC: ER 08:28
DX: S61.402A Unspecified open wound of left hand, initial encounter (principal)
CPT/HCPCS: 96372; 99284

== ENCOUNTER 2025-06-17 06:32 | Emergency (ER) | payer OTHER ==
--- OUTSIDE RECORDS SUMMARY | 2025-06-17 06:34 | XMS REPORT | Continuity of Care Document ---
Author Name Unknown Address [address] [place] [address] [facility] Address [address] [place] [address] Care Team Providers Care Human Resources Communications Manager Name Role Phone John Nixon Attending Clinician Unavailable TL PERSAUD Attending Clinician Unavailable EVAN BOSCH Attending Clinician Unavailable ANABELA JIMENEZ Attending Clinician Unavailable Nick Quinteros MD Attending Clinician [facility] Attending Clinician Unavailable NICK QUINTEROS Attending Clinician Annabelle vailable ISA GALO Attending Clinician Unavailable Caleb Rubio Attending Clinician Unavailab Caleb Tracey Attending Clinician Unavailab Caleb Tracey Admitting Clinician Unavailab le Payers Payer Name Policy Type Policy Number Effective Date Expirati on Date Source MEDICARE PART A AND B [id number] 2020 00:00:00 2020 00:00:00 [facility] [id number] 2020 00:00:00 [facility] Medicare Complete 53 [id number] Common [facility] Problems Condition Name Condition Details Condition Category Status Onset Date Resolution Date Last Treatment Date Treating Clinician Comments Source [id number] BPH loc w urin obs/LUTS Problem [facility] [id number] Pain, joint, shoulder, left Problem [facility] [id number] Prostate cancer Problem [facility] [id number] Urge incontinen ce Problem [facility] No known active problems No known active problems Disease [facility] Allergies, Adverse Reactions, Alerts Allergy Name Allergy Type Status Severity Reaction(s) Onset Date Inactive Date Treating Clinician Comments Source No Known Allergie s Drug Active [facility] NO KNOWN ALLERGIE S Drug Class Active [facility] Social History Social Habit Start Date Stop Date Quantity Comments Source History of Tobacco Use [facility] Sex Assigned At [facility] Alcohol intake 2021-01-23 00:00:00 2021-01-23 00:00:00 Current non-drinker of alcohol (finding) [facility] Tobacco use and exposure 2021-01-23 00:00:00 2021-01-23 00:00:00 Never used [facility] Smoking Status Start Date Stop Date Source Former Smoker 2024-11-15 00:00:00 2024-11-15 00:00:00 [facility] Current every day smoker 2021-01-23 00:00:00 [facility] Medications Ordered Medication Name Filled Medication Name Start Date Stop Date Current Medication? Ordering Clinician Indication Dosage Frequency Signature (SIG) Comments Components Source Tamsulosin HCl 0.4 MG Tamsulosin HCl 0.4 MG 09-17 00:00: 00 No 1{capsu le} BID Tamsulosin HCl 0.4 MG HYDROCHLORO THIAZIDE ORAL 2018-09 17:07: 06 Yes 12.5mg Take 12.5 mg by mouth daily. [facility] amlodipine- benazepril 5-20 mg per capsule 2018-09 17:07: 06 Yes 1{capsu le} Take 1 capsule by mouth daily. [facility] buPROPion SR 100 mg SR tablet 2018-09 17:07: 06 Yes 100mg Take 100 mg by mouth 2 (two) times daily. [facility] glimepiride 2 mg tablet 2018-09 1-14 17:07: 06 Yes 2mg Take 2 mg by mouth daily with breakfast. [facility] levoFLOXaci n (LEVAQUIN) 500 mg tablet - 00:00: 00 Yes 500mg Take 1 tablet by mouth SEE-INSTRU CTIONS. Take 1 PO the day before procedure, 1 PO morning of the procedure, [address] [facility] ALPRAZolam 1 mg tablet 11-06 00:00: 00 Yes .5{tbl} Take 0.5 tablets by mouth daily. [facility] Glimepiride 2 MG Glimepiride 2 MG [...] 1{table t} QD Aspirin 81 81 MG ALPRAZolam 2 MG ALPRAZolam 2 MG No ALPRAZolam 2 MG buPROPion HCl buPROPion HCl No buPROPion HCl HYDROcodone -Acetaminop hen 10-325 MG HYDROcodone -Acetaminop hen 10-325 MG No HYDROcodon e-Acetamin ophen 10-325 MG Vital Signs Vital Name Observation Time Observation Value Comments S ource blood pressure diastolic 2024-11-15 15:30:00 70 mm[Hg] Common [facility] height 2024-11-15 15:30:00 67 [in_i] Commo n [facility] weight 2024-11-15 15:30:00 158.2 [lb_av] Co mmon [facility] temperature 2024-11-15 15:30:00 97.8 [degF] Com mon [facility] bmi 2024-11-15 15:30:00 24.77 kg/m2 Comm on [facility] oximetry 2024-11-15 15:30:00 95 % Commo n [facility] respiratory rate 2024-11-15 15:30:00 18 /min Common [facility] blood pressure systolic 2024-11-15 15:30:00 160 mm[Hg] Common [facility] height 2023-09-15 11:00:00 67 [in_i] Commo n [facility] weight 2023-09-15 11:00:00 169.2 [lb_av] Co on [facility] temperature 2023-09-15 11:00:00 97.6 [degF] Com [facility] bmi 2023-09-15 11:00:00 26.5 kg/m2 Commo n [facility] oximetry 2023-09-15 11:00:00 96 % Commo n [facility] respiratory rate 2023-09-15 11:00:00 18 /min Common [facility] blood pressure systolic 2023-09-15 11:00:00 136 mm[Hg] Common [facility] blood pressure diastolic 2023-09-15 11:00:00 68 mm[Hg] Common [facility] height 2023-03-17 10:45:00 67 [in_i] Commo n [facility] weight 2023-03-17 10:45:00 171.8 [lb_av] Co mmon [facility] temperature 2023-03-17 10:45:00 98.2 [degF] Com mon [facility] bmi 2023-03-17 10:45:00 26.9 kg/m2 Commo n [facility] oximetry 2023-03-17 10:45:00 99 % Commo n [facility] blood pressure systolic 2023-03-17 10:45:00 123 mm[Hg] [facility] blood pressure diastolic 2023-03-17 10:45:00 61 mm[Hg] [facility] height 2023-02-15 08:30:00 67 [in_i] Commo n [facility] weight 2023-02-15 08:30:00 172 [lb_av] Comm on [facility] temperature 2023-02-15 08:30:00 96.8 [degF] Com [facility] bmi 2023-02-15 08:30:00 26.94 kg/m2 Comm on [facility] blood pressure systolic 2023-02-15 08:30:00 132 mm[Hg] [facility] blood pressure diastolic 2023-02-15 08:30:00 74 mm[Hg] Common [facility] height 2022-09-17 14:45:00 67 [in_i] Commo n [facility] weight 2022-09-17 14:45:00 164.2 [lb_av] Co mmon [facility] temperature 2022-09-17 14:45:00 97.9 [degF] Com [facility] bmi 2022-09-17 14:45:00 25.71 kg/m2 Comm on [facility] oximetry 2022-09-17 14:45:00 96 % Commo n [facility] respiratory rate 2022-09-17 14:45:00 16 /min Common [facility] blood pressure systolic 2022-09-17 14:45:00 136 mm[Hg] [facility] blood pressure diastolic 2022-09-17 14:45:00 66 mm[Hg] Common [facility] height 2022-04-23 14:30:00 67 [in_i] Commo n [facility] weight 2022-04-23 14:30:00 182.8 [lb_av] Co mmon [facility] temperature 2022-04-23 14:30:00 97.8 [degF] Com mon [facility] bmi 2022-04-23 14:30:00 28.63 kg/m2 Comm on [facility] oximetry 2022-04-23 14:30:00 94 % Commo n [facility] respiratory rate 2022-04-23 14:30:00 17 /min Common [facility] blood pressure systolic 2022-04-23 14:30:00 162 mm[Hg] [facility] blood pressure diastolic 2022-04-23 14:30:00 72 mm[Hg] [facility] Systolic blood pressure 2021-01-23 13:48:00 165 mm[Hg] [facility] Diastolic blood pressure 2021-01-23 13:48:00 73 mm[Hg] [facility] Heart rate 2021-01-23 13:48:00 76 /min [facility] Body temperature 2021-01-23 13:48:00 36.39 Yesika [facility] Respiratory rate 2021-01-23 13:48:00 18 /min [facility] Body height 2021-01-23 13:48:00 172.7 cm [facility] Body weight 2021-01-23 13:48:00 85.957 kg [facility] BMI 2021-01-23 13:48:00 28.81 kg/m2 [facility] Height/Length Measured 2021-09-30 12:12:10 172.72 cm Weight Dosing 2021-09-30 12:12:10 81.64 kg Height/Length Measured 2021-09-30 12:11:53 172.72 cm Weight Dosing 2021-09-30 12:11:53 81.64 kg Height/Length Measured 2021-09-30 12:11:42 172.72 cm Weight Dosing 2021-09-30 12:11:42 81.64 kg Height/Length Measured 2020-05-16 12:43:20 Weight Dosing 2020-05-16 12:43:20 Procedures Procedure Date / Time Performed Performing Clinicia n Source PVR 2023-09-15 00:00:00 [facility] pirit [facility] PROSTATIC SPECIFIC ANTIGEN 2021-01-23 14:34:00 iNck Quinteros [facility] Encounters Start Date/Time End Date/Time Encounter Type Admission Type Attending [facility] Facility Care Department Encounter ID Source 2024-09-21 10:03:00 Outpatient John Nixon [facility] [id number] [facility] 2023-02-15 12:31:00 Outpatient Faith Nixonh [facility] [id number] [facility] 2022-04-23 14:00:01 Outpatient John Nixon [facility] [id number] [facility] 2022-04-07 06:15:21 Outpatient [facility] [id number] [facility] 2021-09-01 01:05:34 Outpatient TL PERSAUD [facility] [id number] [facility] 2021 11:17:52 Outpatient [facility] [id number] [facility] 2021-06-24 11:41:27 Outpatient BOSCHEVAN [facility] [id number] [facility] 2021-06-16 11:57:29 Outpatient BARBARAANABELA PLASCENCIA [facility] [id number] [facility] 2021-06-11 12:02:07 Outpatient BARBARAANABELA [facility] [id number] [facility] 2024-11-15 00:00:00 2024-11-15 00:00:00 OFFICE VISIT ESTAB PT LEVEL [id number] [facility] 2023-09-15 00:00:00 2023-09-15 00:00:00 OFFICE VISIT ESTAB PT LEVEL [id number] [facility] 2023-04-15 00:00:00 2023-04-15 00:00:00 (TEL) STLMLC STLMLC [id number] [facility] 2023-03-17 00:00:00 2023-03-17 00:00:00 OFFICE VISIT ESTAB PT LEVEL [id number] [facility] 2023-02-16 00:00:00 2023-02-16 00:00:00 (TEL) STLMLC STLMLC [id number] [facility] 2023-02-15 00:00:00 2023-02-15 00:00:00 OFFICE VISIT NEW PT LEVEL [id number] [facility] 2022-09-17 00:00:00 2022-09-17 00:00:00 OFFICE VISIT EST PT LEVEL [id number] [facility] 2022-04-23 00:00:00 2022-04-23 00:00:00 OFFICE VISIT NEW PT LEVEL [id number] [facility] 2021-02-12 00:00:00 2021-02-12 00:00:00 [facility] [id number] [facility] 2021-01-24 00:00:00 2021-01-24 00:00:00 [facility] [id number] [facility] 2021-01-23 09:25:30 2021-01-23 09:29:17 Licensed Loan Officer Assistant Visit [facility] [id number] [facility] 2021-01-23 08:39:05 2021-01-23 09:26:37 [facility] [id number] [facility] 2021-01-23 09:00:00 2021-01-23 09:00:00 Outpatient R ALDAIRNICK [facility] [id number] [facility] 2021-01-23 00:00:00 2021-01-23 00:00:00 Telephone Aldair [facility] [id number] [facility] 2020-12-20 14:10:00 2020-12-20 14:10:00 Outpatient ISA VILLAFUERTE [facility] [id number] [facility] 2020-11-29 14:10:00 2020-11-29 14:10:00 Outpatient ISA VILLAFUERTE [facility] [id number] [facility] 2020-05-16 10:47:00 2020-05-16 23:59:00 Outpatient 3 Caleb Rubio [facility] [id number] [facility] 2020-05-16 10:47:00 2020-05-16 10:47:00 Outpatient 3 Caleb Rubio Caleb [facility] [id number] [facility] 2020-02-01 08:15:00 2020-02-01 08:15:00 Outpatient R NICK QUINTEROS [facility] [id number] [facility] 2020-02-01 07:41:50 2020-02-01 07:56:50 Telemedici ne Visit [facility] [id number] [facility] 2019-07-27 10:45:00 2019-07-27 11:27:21 Outpatient R NICK QUINTEROS [facility] [id number] [facility] Results Test Description Test Time Test Comments Results Result Co mments Source [facility] [id number] 16:41:06 * Test Item Value Reference Range Interpretation Comme nts PSA (test code = 5910218221) 6.24 ng/mL See_Comment H [Automated message] The system which generated this result transmitted reference range: <=4.00. The reference range was not used to interpret this result as normal/abnormal. CINDY (test code = CINDY) Biotin has been reported to cause a negative bias, interpret results relative to patient's use of biotin. Lab Interpretation (test code = 86780-0) Abnormal [facility] [id number] 12:05:24* Test Item Value Reference Range Interpretation Comme [facility] Glucose POC (test code = Glucose POC) 68 mg/dL 70-115 L If you consi joni your patient critically ill, the Magdalena-Accu Check Infrom II meter should not be used for Glucose determination. Draw a venous Glucose and send to the main Lab for analysis.
[2025-06-17 07:32] LABS: Absolute Lymphocytes (CBC) 1.1 K/uL (0.7-4.9); Hematocrit 42.9 % (39.6-49.0); Hemoglobin 14.2 g/dL (13.6-17.9); MCH 30.3 pg (27.0-35.0); MCHC 33.1 g/dL (32.0-36.0); MCV 91.7 fL (80-100); MPV 8.4 fL (7.6-11.3); Nucleated RBC Absolute Count 0.0 (0-0); Nucleated Red Blood Cells % 0.1 % (0-0); RBC Red Blood Cell Count 4.68 M/uL (4.33-5.43); White Blood Count 5.80 thou/uL (4.3-10.9)
[2025-06-17] MEDS ORDERED: CEFTRIAXONE 1000 MG/VIAL ONE (07:41)
[2025-06-17] MEDS ORDERED: TAMSULOSIN 0.4 MG SR CAP ONE (07:41)
[2025-06-17] MEDS ORDERED: NA CHLORIDE 0.9% 50 ML ONE (07:41)
[2025-06-17 07:49] LABS: Sqamous Epithelial None Seen /HPF (None Seen); Urine Crystals Unidentified Few /HPF (None Seen); Urine Culture Reflex Order NOT NEEDED; Urine Microscopic Reflex YN ORDER UMIC
[2025-06-17 07:53] LABS: ALT/SGPT 42.0 U/L (16-61); AST/SGOT 18.0 U/L (15-37); Albumin 3.7 g/dL (3.4-5.0); Albumin/Globulin Ratio 1.2 (1.1-1.8); Alkaline Phosphatase 105.0 U/L (45-117); Anion Gap 7.2 mEq/L (5.0-15.0); BUN Blood Urea Nitrogen 27.0 mg/dL (7-18); Globulin 3.2 g/dL (2.3-3.5); Glucose Level 134.0 mg/dL (74-106); Potassium 4.2 mEq/L (3.5-5.1)
--- NOTE | 2025-06-17 08:25 | ER ---
Nurse's Notes [facility] Name: Qamar Campbell Age: 84 yrs Sex: Male : 1940 Arrival Date: 06/17/2025 Time: 06:32 Bed 14 Private MD: Diagnosis: Retention of urine, unspecified-800 cc Presentation: 06/17 06:44 Chief complaint: EMS states: unable to urinate since 2099 last night. pt have hx of ss12 prostate cancer. Coronavirus screen: Client denies travel out of the [place] in the last 14 days. At this time, the client does not indicate any symptoms associated with coronavirus-19. Ebola Screen: Patient negative for fever greater than or equal to 101.5 degrees Fahrenheit, and additional compatible Ebola Virus Disease symptoms Patient denies exposure to infectious person. Patient denies travel to an Ebola-affected area in the 21 days before illness onset. Initial Sepsis Screen: Does the patient meet any 2 criteria? No. Patient's initial sepsis screen is negative. Does the patient have a suspected source of infection? No. Patient's initial sepsis screen is negative. Risk Assessment: Do you want to hurt yourself or someone else? Patient reports no desire to harm self or others. Onset of symptoms was June 16, 2025. 06:44 Method Of Arrival: EMS: [facility] 06:44 Acuity: ELISSA 3 ss12 Triage Assessment: 06:40 General: Appears in no apparent distress. comfortable, Behavior is calm, cooperative, ss12 quiet. Pain: Complains of pain in lower abdomer and pelvic Pain does not radiate. Pain currently is 8 out of 10 on a pain scale. Quality of pain is described as aching, throbbing. EENT: No deficits noted. No signs and/or symptoms were reported regarding the EENT system. Neuro: No deficits noted. Level of Consciousness is awake, alert, obeys commands, Oriented to person, place, time, situation. Cardiovascular: No deficits noted. Capillary refill < 3 seconds Patient's skin is warm and dry. Respiratory: No deficits noted. Airway is patent Respiratory effort is even, unlabored, Respiratory pattern is regular, symmetrical. GI: No deficits noted. Abdomen is flat, non-distended. : : Reports inability to void, since 2100 last night. pt usually void q 6hr. Derm: No deficits noted. No signs and/or symptoms reported regarding the dermatologic system. Musculoskeletal: No deficits noted. No signs and/or symptoms reported regarding the musculoskeletal system. Historical: - Allergies: 06:50 No Known Allergies; ss12 - PMHx: 06:50 Diabetes - NIDDM; Hypertension; PROSTATE CA; ss12 - Immunization history:: Adult Immunizations up to date, Client reports receiving the 2nd dose of the Covid vaccine. - Infectious Disease History:: Denies. - Social history:: Smoking status: Patient denies any tobacco usage or history of. Screenin:57 [facility] ED Fall Risk Assessment (Adult) History of falling in the last 3 months, ss12 including since admission No falls in past 3 months (0 pts) Confusion or Disorientation No (0 pts) Intoxicated or Sedated No (0 pts) Impaired Gait No (0 pts) Mobility Assist Device Used No (0 pt) Altered Elimination No (0 pt) Score/Fall Risk Level 0 - 2 = Low Risk Oriented to surroundings, Maintained a safe environment, Educated pt \T\ family on fall prevention, incl call for assistance when getting out of bed, Assessed \T\ reinforced patient's understanding of fall precautions. Abuse screen: Denies threats or abuse. Denies injuries from another. Nutritional screening: No deficits noted. Tuberculosis screening: No symptoms or risk factors identified. Assessment: 07:22 Reassessment: Patient appears in no apparent distress at this time. Patient and/or db family updated on plan of care and expected duration. Pain level reassessed. Patient is alert, oriented x 3, equal unlabored respirations, skin warm/dry/pink. General: Appears in no apparent distress. comfortable, Behavior is calm, cooperative. Neuro: Level of Consciousness is awake, alert, obeys commands, Oriented to person, place, time, situation. Respiratory: Airway is patent Respiratory effort is even, unlabored, Respiratory pattern is regular, symmetrical. : Reports urgency. 07:49 Reassessment: Patient appears in no apparent distress at this time. PT REPORTS RELIEF db AFTER CATHETER PLACEMENT Patient states feeling better. Patient states symptoms have improved. 09:00 Reassessment: Patient appears in no apparent distress at this time. Patient and/or db family updated on plan of care and expected duration. Pain level reassessed. Patient is alert, oriented x 3, equal unlabored respirations, skin warm/dry/pink. Vital Signs: 06:44 BP 154 / 82; Pulse 87; Resp 16; Temp 97.7; Pulse Ox 96% on R/A; 12 06:57 Weight 64.86 kg; Height 5 ft. 8 in. ; ss12 07:30 BP 185 / 88; Pulse 65; Resp 16; Pulse Ox 98% on R/A; db 08:00 BP 155 / 78; Pulse 64; Resp 16; Pulse Ox 97% on R/A; db 09:00 BP 156 / 84; Pulse 65; Resp 16; Pulse Ox 98% on R/A; db 06:57 Body Mass Index 21.74 (64.86 kg, 172.72 cm) 12 ED Course: 06:44 Patient arrived in ED. eb 06:45 Shaan Garduno, RN is Primary Nurse. 12 06:49 Triage completed. 12 06:58 Arm band placed on right wrist. [facility] 06:58 Provided Education on: plan of care. 12 06:58 Patient has correct armband on for positive identification. [facility] 06:58 No provider procedures requiring assistance completed. ss12 07:04 Elliott Braden MD is Attending Physician. sp4 07:14 Attending Physician role handed off by Elliott Braden MD landon 07:14 Christophe Irby MD is Attending Physician. landon 07:19 Initial lab(s) drawn, by ms, sent to lab. Inserted saline lock: 20 gauge in right db antecubital area, using aseptic technique. Blood collected. Flushed with 10 mL NS. 07:43 UA Rfx Kurt Cult if indicated Sent. em1 07:43 Jenkins cath inserted, using sterile technique, 16 Fr., by ms, balloon inflated, to em1 gravity drainage, urine specimen collected. returned ras urine. Patient tolerated well. 08:24 Toribio Wang MD is Referral Physician. landon 09:05 Pulse ox on. NIBP on. db 09:05 Patient did not have IV access during this emergency room visit. db Administered Medications: 07:44 Drug: Flomax PO 0.4 mg PO once Route: PO; db 09:13 Follow up: Response: No adverse reaction db 07:45 Drug: Rocephin IV 1 grams IV at per protocol once; Given slow IV push per pharmacy db instructions Route: IV; Rate: per protocol; Site: right antecubital; 08:30 Follow up: Response: No adverse reaction; IV Status: Completed infusion; IV Intake: 50mldb Medication: 06:58 VIS not applicable for this client. ss12 Intake: 08:30 IV: 50ml; Total: 50ml. db Outcome: 08:24 Discharge ordered by . landon 09:05 Discharged to home ambulatory, with family, ashley 09:05 Condition: stable 09:05 Discharge instructions given to patient, Instructed on discharge instructions, follow up and referral plans. Prescriptions given X 2, 09:14 Patient left the ED. db Signatures: Christophe Irby MD MD cha Martinez, Eric em1 Val Iglesias Danielle, RN RN Elliott Edwards MD MD sp4 Shaan Garduno RN RN ss12
--- NOTE | 2025-06-17 08:25 | EDPHYS ---
Physician Documentation [facility] Name: Qamar Cmapbell Age: 84 yrs Sex: Male : 1940 Arrival Date: 06/17/2025 Time: 06:32 Bed 14 Private MD: ED Physician Christophe Irby HPI: 06/17 07:53 This 84 yrs old Male presents to ER via EMS with complaints of Urinary landon Retention. Historical: - Allergies: 06:50 No Known Allergies; ss12 - PMHx: 06:50 Diabetes - NIDDM; Hypertension; PROSTATE CA; ss12 - Immunization history:: Adult Immunizations up to date, Client reports receiving the 2nd dose of the Covid vaccine. - Infectious Disease History:: Denies. - Social history:: Smoking status: Patient denies any tobacco usage or history of. ROS: 08:18 Constitutional: Negative for fever, chills, and weight loss, Eyes: Negative for injury, landon pain, redness, and discharge, ENT: Negative for injury, pain, and discharge, Neck: Negative for injury, pain, and swelling, Cardiovascular: Negative for chest pain, palpitations, and edema, Respiratory: Negative for shortness of breath, cough, wheezing, and pleuritic chest pain, Abdomen/GI: Negative for abdominal pain, nausea, vomiting, diarrhea, and constipation, Back: Negative for injury and pain, MS/Extremity: Negative for injury and deformity, Skin: Negative for injury, rash, and discoloration, Neuro: Negative for headache, weakness, numbness, tingling, and seizure, Psych: Negative for depression, anxiety, suicide ideation, homicidal ideation, and hallucinations, Allergy/Immunology: Negative for hives, rash, and allergies, Endocrine: Negative for neck swelling, polydipsia, polyuria, polyphagia, and marked weight changes, Hematologic/Lymphatic: Negative for swollen nodes, abnormal bleeding, and unusual bruising, 08:18 : Positive for urinary frequency, small amounts, retention, Exam: 08:19 Constitutional: This is a well developed, well nourished patient who is awake, alert, landon and in no acute distress. Head/Face: Normocephalic, atraumatic. Eyes: Pupils equal round and reactive to light, extra-ocular motions intact. Lids and lashes normal. Conjunctiva and sclera are non-icteric and not injected. Cornea within normal limits. Periorbital areas with no swelling, redness, or edema. ENT: Nares patent. No nasal discharge, no septal abnormalities noted. Tympanic membranes are normal and external auditory canals are clear. Oropharynx with no redness, swelling, or masses, exudates, or evidence of obstruction, uvula midline. Mucous membranes moist. Neck: Trachea midline, no thyromegaly or masses palpated, and no cervical lymphadenopathy. Supple, full range of motion without nuchal rigidity, or vertebral point tenderness. No Meningismus. Chest/axilla: Normal chest wall appearance and motion. Nontender with no deformity. No lesions are appreciated. Cardiovascular: Regular rate and rhythm with a normal S1 and S2. No gallops, murmurs, or rubs. Normal PMI, no JVD. No pulse deficits. Respiratory: Lungs have equal breath sounds bilaterally, clear to auscultation and percussion. No rales, rhonchi or wheezes noted. No increased work of breathing, no retractions or nasal flaring. Abdomen/GI: Soft, non-tender, with normal bowel sounds. No distension or tympany. No guarding or rebound. No evidence of tenderness throughout. Back: No spinal tenderness. No costovertebral tenderness. Full range of motion. Skin: Warm, dry with normal turgor. Normal color with no rashes, no lesions, and no evidence of cellulitis. MS/ Extremity: Pulses equal, no cyanosis. Neurovascular intact. Full, normal range of motion., bilateral aka Neuro: Awake and alert, GCS 15, oriented to person, place, time, and situation. Cranial nerves II-XII grossly intact. Motor strength 5/5 in all extremities. Sensory grossly intact. Cerebellar exam normal. Normal gait. Psych: Awake, alert, with orientation to person, place and time. Behavior, mood, and affect are within normal limits. 08:19 : CVA tenderness, is absent, Male external genitalia: normal, Bladder: distension, that is moderate, Sexual behavior: the patient is not sexually active, Vital Signs: 06:44 BP 154 / 82; Pulse 87; Resp 16; Temp 97.7; Pulse Ox 96% on R/A; ss12 06:57 Weight 64.86 kg; Height 5 ft. 8 in. ; ss12 07:30 BP 185 / 88; Pulse 65; Resp 16; Pulse Ox 98% on R/A; db 08:00 BP 155 / 78; Pulse 64; Resp 16; Pulse Ox 97% on R/A; db 09:00 BP 156 / 84; Pulse 65; Resp 16; Pulse Ox 98% on R/A; db 06:57 Body Mass Index 21.74 (64.86 kg, 172.72 cm) ss12 MDM: 07:04 Medical Screening Exam initiated sp4 07:14 Medical Screening Exam initiated landon 08:20 Differential diagnosis: nonspecific abdominal pain, UTI, urinary retention, landon prostatitis, urethritis. Data reviewed: vital signs, nurses notes, lab test result(s). Consideration of Admission/Observation Escalation of care including admission/observation considered. I considered the following discharge prescriptions or medication management in the emergency department Medications were administered in the Emergency Department. See MAR. Independent interpretation of the following test(s) in the Emergency Department. Historians other than the Patient: pt well informed. Care significantly affected by the following chronic conditions: Diabetes, Hypertension, Liver Disease. 06/17 07:04 Order name: UA Rfx Kurt Cult if indicated; Complete Time: 07:52 sp4 06/17 07:04 Order name: CBC with Diff; Complete Time: 07:52 sp4 06/17 07:04 Order name: CMP; Complete Time: 08:18 sp4 06/17 07:04 Order name: Jenkins; Complete Time: 07:43 sp4 06/17 07:04 Order name: Leg Bag; Complete Time: 09:13 sp4 06/17 07:04 Order name: IV Saline Lock; Complete Time: 07:21 sp4 06/17 07:04 Order name: Labs collected and sent; Complete Time: 07:21 sp4 Administered Medications: 07:44 Drug: Flomax PO 0.4 mg PO once Route: PO; db 09:13 Follow up: Response: No adverse reaction db 07:45 Drug: Rocephin IV 1 grams IV at per protocol once; Given slow IV push per pharmacy db instructions Route: IV; Rate: per protocol; Site: right antecubital; 08:30 Follow up: Response: No adverse reaction; IV Status: Completed infusion; IV Intake: 50mldb Disposition Summary: 06/17/25 08:24 Discharge Ordered Notes: Location: Home landon Problem: new landon Symptoms: have improved landon Condition: Stable landon Diagnosis - Retention of urine, unspecified - 800 cc landon Followup: landon - With: Private Physician - When: 2 - 3 days - Reason: Recheck today's complaints, Continuance of care, Re-evaluation by your physician Followup: landon - With: Toribio Wang MD - When: 2 - 3 days - Reason: Recheck today's complaints, Continuance of care, Re-evaluation by your physician Discharge Instructions: - Discharge Summary Sheet landon - Acute Urinary Retention, Male landon - Acute Urinary Retention, Male, [id number] Forms: - Medication Reconciliation Form landon - Antibiotic Education landon - Prescription Opioid Use landon - Patient Portal Instructions [facility] - Leadership Thank You Letter [facility] Prescriptions: - Flomax 0.4 mg Oral capsule - take 1 capsule ORAL route daily; 20 capsule; Refills: 0, Product Selection [facility] Permitted - cefdinir 300 mg Oral capsule - take 1 capsule ORAL route 2 times per day for 5 days; 10 capsule; Refills: 0, [facility] Product Selection Permitted Signatures: Dispatcher [employer] EDChristophe Holcomb MD MD cha Benton, Danielle, RN RN db Elliott Braden MD MD sp4 Shaan Garduno RN RN ss12 Corrections: (The following items were deleted from the chart) 07:05 07:05 CBC+H.LAB.BRZ ordered. EDMS EDMS 07:05 07:05 COMPREHENSIVE METABOLIC PANEL+C.LAB.BRZ ordered. EDMS EDMS
[2025-06-17 09:18] VITALS: TEMP 97.7
[2025-06-17 09:23] VITALS: BP 156/84; O2SAT 98
== END 2025-06-17 09:14 | disposition home or self-care (01) ==
LOC: ER 06:32
DX: R33.9 Retention of urine, unspecified (principal); Z85.46 Personal history of malignant neoplasm of prostate
CPT/HCPCS: 96365; 85025; 81001; 36415; 80053; 51702; 99285; J0696

== ENCOUNTER 2025-06-17 19:30 | Emergency (ER) | payer OTHER ==
--- OUTSIDE RECORDS SUMMARY | 2025-06-17 19:33 | XMS REPORT | Continuity of Care Document ---
Author Name Unknown Address [address] [place] [address] [facility] Address [address] [place] [address] Care Team Providers Care Sql Report Analyst Name Role Phone John Nixon Attending Clinician Unavailable TL PERSAUD Attending Clinician Unavailable EVAN BOSCH Attending Clinician Unavailable ANABELA JIMENEZ Attending Clinician Unavailable Nick Quinteros MD Attending Clinician [facility] Attending Clinician Unavailable NICK QUINTEROS Attending Clinician Annabelle vailable ISA GALO Attending Clinician Unavailable Caleb Rubio Attending Clinician Unavailab Caleb Tracey Attending Clinician Unavailab Caleb Tracey Admitting Clinician Unavailab le Payers Payer Name Policy Type Policy Number Effective Date Expirati on Date Source MEDICARE PART A AND B [id number] 2020 00:00:00 2020 00:00:[address] [facility] [id number] 2020 00:00:00 [facility] Medicare Complete 53 [id number] [facility] Problems Condition Name Condition Details Condition Category Status Onset Date Resolution Date Last Treatment Date Treating Clinician Comments Source [id number] BPH loc w urin obs/LUTS Problem [facility] [id number] Pain, joint, shoulder, left Problem [facility] [id number] Prostate cancer Problem [facility] [id number] Urge incontinen ce Problem [facility] No known active problems No known active problems Disease [facility] Allergies, Adverse Reactions, Alerts Allergy Name Allergy Type Status Severity Reaction(s) Onset Date Inactive Date Treating Clinician Comments Source NO KNOWN ALLERGIE S Drug Class Active [facility] No Known Allergie s Drug Active [facility] Social History Social Habit Start Date Stop Date Quantity Comments Source History of Tobacco Use [facility] Sex Assigned At [facility] Alcohol intake 2021-01-23 00:00:00 2021-01-23 00:00:00 Current non-drinker of alcohol (finding) [facility] Tobacco use and exposure 2021-01-23 00:00:00 2021-01-23 00:00:00 Never used [facility] Smoking Status Start Date Stop Date Source Former Smoker 2024-11-15 00:00:00 2024-11-15 00:00:00 [facility] Current every day smoker 2021-01-23 00:00:00 [facility] Medications Ordered Medication Name Filled Medication Name Start Date Stop Date Current Medication? Ordering Clinician Indication Dosage Frequency Signature (SIG) Comments Components Source Tamsulosin HCl 0.4 MG Tamsulosin HCl 0.4 MG 09-17 00:00: 00 No 1{capsu le} BID Tamsulosin HCl 0.4 MG HYDROCHLORO THIAZIDE ORAL 2018-09 17:07: 06 Yes 12.5mg Take 12.5 mg by mouth daily. [facility] amlodipine- benazepril 5-20 mg per capsule 2018-09 17:07: 06 Yes 1{capsu le} Take 1 capsule by mouth daily. [facility] buPROPion SR 100 mg SR tablet 2018-09 17:07: 06 Yes 100mg Take 100 mg by mouth 2 (two) times daily. [facility] glimepiride 2 mg tablet 2018-09 1-14 17:07: 06 Yes 2mg Take 2 mg by mouth daily with breakfast. [facility] levoFLOXaci n (LEVAQUIN) 500 mg tablet - 00:00: 00 Yes 500mg Take 1 tablet by mouth SEE-INSTRU CTIONS. Take 1 PO the day before procedure, 1 PO morning of the procedure, 1 PO day after procedure [facility] ALPRAZolam 1 mg tablet 11-06 00:00: 00 Yes .5{tbl} Take 0.5 tablets by mouth daily. [facility] Glimepiride 2 MG Glimepiride 2 MG [...] Observation Time Observation Value Comments S ource height 2024-11-15 15:30:00 67 [in_i] [facility] weight 2024-11-15 15:30:00 158.2 [lb_av] Co mmon [facility] temperature 2024-11-15 15:30:00 97.8 [degF] Com mon [facility] bmi 2024-11-15 15:30:00 24.77 kg/m2 Comm on [facility] oximetry 2024-11-15 15:30:00 95 % [facility] respiratory rate 2024-11-15 15:30:00 18 /min [facility] blood pressure systolic 2024-11-15 15:30:00 160 mm[Hg] Common [facility] blood pressure diastolic 2024-11-15 15:30:00 70 mm[Hg] [facility] height 2023-09-15 11:00:00 67 [in_i] Commo [facility] weight 2023-09-15 11:00:00 169.2 [lb_av] Co on [facility] temperature 2023-09-15 11:00:00 97.6 [degF] Com [facility] bmi 2023-09-15 11:00:00 26.5 kg/m2 [facility] oximetry 2023-09-15 11:00:00 96 % [facility] respiratory rate 2023-09-15 11:00:00 18 /min [facility] blood pressure systolic 2023-09-15 11:00:00 136 mm[Hg] [facility] blood pressure diastolic 2023-09-15 11:00:00 68 mm[Hg] [facility] height 2023-03-17 10:45:00 67 [in_i] [facility] weight 2023-03-17 10:45:00 171.8 [lb_av] Co mmon [facility] temperature 2023-03-17 10:45:00 98.2 [degF] Com mon [facility] bmi 2023-03-17 10:45:00 26.9 kg/m2 [facility] oximetry 2023-03-17 10:45:00 99 % [facility] blood pressure systolic 2023-03-17 10:45:00 123 mm[Hg] Common [facility] blood pressure diastolic 2023-03-17 10:45:00 61 mm[Hg] [facility] height 2023-02-15 08:30:00 67 [in_i] Commo [facility] weight 2023-02-15 08:30:00 172 [lb_av] Comm on [facility] temperature 2023-02-15 08:30:00 96.8 [degF] Com mon [facility] bmi 2023-02-15 08:30:00 26.94 kg/m2 Comm on [facility] blood pressure systolic 2023-02-15 08:30:00 132 mm[Hg] Common [facility] blood pressure diastolic 2023-02-15 08:30:00 74 mm[Hg] [facility] blood pressure systolic 2022-09-17 14:45:00 136 mm[Hg] [facility] blood pressure diastolic 2022-09-17 14:45:00 66 mm[Hg] [facility] height 2022-09-17 14:45:00 67 [in_i] Commo [facility] weight 2022-09-17 14:45:00 164.2 [lb_av] Co [facility] temperature 2022-09-17 14:45:00 97.9 [degF] Com mon [facility] bmi 2022-09-17 14:45:00 25.71 kg/m2 Comm on [facility] oximetry 2022-09-17 14:45:00 96 % [facility] respiratory rate 2022-09-17 14:45:00 16 /min [facility] height 2022-04-23 14:30:00 67 [in_i] [facility] weight 2022-04-23 14:30:00 182.8 [lb_av] Co on [facility] temperature 2022-04-23 14:30:00 97.8 [degF] Com mon [facility] bmi 2022-04-23 14:30:00 28.63 kg/m2 Comm [facility] oximetry 2022-04-23 14:30:00 94 % [facility] respiratory rate 2022-04-23 14:30:00 17 /min [facility] blood pressure systolic 2022-04-23 14:30:00 162 mm[Hg] [facility] blood pressure diastolic 2022-04-23 14:30:00 72 mm[Hg] [facility] Systolic blood pressure 2021-01-23 13:48:00 165 mm[Hg] [facility] Diastolic blood pressure 2021-01-23 13:48:00 73 mm[Hg] [facility] Heart rate 2021-01-23 13:48:00 76 /min [facility] Body temperature 2021-01-23 13:48:00 36.39 Yesika [facility] Respiratory rate 2021-01-23 13:48:00 18 /min [facility] Body height 2021-01-23 13:48:00 172.7 cm [facility] Body weight 2021-01-23 13:48:00 85.957 kg [facility] BMI 2021-01-23 13:48:00 28.81 kg/m2 [facility] Height/Length Measured 2021-09-30 12:12:10 172.72 cm Weight Dosing 2021-09-30 12:12:10 81.64 kg Height/Length Measured 2021-09-30 12:11:53 172.72 cm Weight Dosing 2021-09-30 12:11:53 81.64 kg Height/Length Measured 2021-09-30 12:11:42 172.72 cm Weight Dosing 2021-09-30 12:11:42 81.64 kg Height/Length Measured 2020-05-16 12:43:20 Weight Dosing 2020-05-16 12:43:20 Procedures Procedure Date / Time Performed Performing Clinicia n Source PVR 2023-09-15 00:00:00 [facility] PROSTATIC SPECIFIC ANTIGEN 2021-01-23 14:34:00 Nick Quinteros [facility] Encounters Start Date/Time End Date/Time Encounter Type Admission Type Attending [facility] Facility Care Department Encounter ID Source 2024-09-21 10:03:00 Outpatient John Nixon [facility] [id number] [facility] 2023-02-15 12:31:00 Outpatient Faith [facility]h [facility] [id number] [facility] 2022-04-23 14:00:01 Outpatient John Nixon [facility] [id number] [facility] 2022-04-07 06:15:21 Outpatient [facility] [id number] [facility] 2021-09-01 01:05:34 Outpatient TL PERSAUD [facility] [id number] [facility] 2021 11:17:52 Outpatient [facility] [id number] [facility] 2021-06-24 11:41:27 Outpatient BOSCHEVAN [facility] [id number] [facility] 2021-06-16 11:57:29 Outpatient BARBARAANABELA PLASCENCIA [facility] [id number] [facility] 2021-06-11 12:02:07 Outpatient BARBARAANABELA [facility] [id number] [facility] 2024-11-15 00:00:00 2024-11-15 00:00:00 OFFICE VISIT ESTAB PT LEVEL 4 STLMLC STLMLC [id number] [facility] 2023-09-15 00:00:00 2023-09-15 00:00:00 OFFICE VISIT ESTAB PT LEVEL 3 STLMLC STLMLC [id number] [facility] 2023-04-15 00:00:00 2023-04-15 00:00:00 (TEL) STLMLC STLMLC [id number] [facility] 2023-03-17 00:00:00 2023-03-17 00:00:00 OFFICE VISIT ESTAB PT LEVEL 3 STLMLC STLMLC [id number] [facility] 2023-02-16 00:00:00 2023-02-16 00:00:00 (TEL) STLMLC STLMLC [id number] [facility] 2023-02-15 00:00:00 2023-02-15 00:00:00 OFFICE VISIT NEW PT LEVEL 3 STLMLC STLMLC [id number] [facility] 2022-09-17 00:00:00 2022-09-17 00:00:00 OFFICE VISIT EST PT LEVEL 3 STLMLC STLMLC [id number] [facility] 2022-04-23 00:00:00 2022-04-23 00:00:00 OFFICE VISIT NEW PT LEVEL 3 STLMLC STLMLC [id number] [facility] 2021-02-12 00:00:00 2021-02-12 00:00:00 [facility] [id number] [facility] 2021-01-24 00:00:00 2021-01-24 00:00:[facility] [id number] [facility] 2021-01-23 09:25:30 2021-01-23 09:29:17 Hand Finisher Visit [facility] [id number] [facility] 2021-01-23 08:39:05 2021-01-23 09:26:37 [facility] [id number] [facility] 2021-01-23 09:00:00 2021-01-23 09:00:00 Outpatient R ALDAIRNICK [facility] [id number] [facility] 2021-01-23 00:00:00 2021-01-23 00:00:00 Telephone Aldair [facility] [id number] [facility] 2020-12-20 14:10:00 2020-12-20 14:10:00 Outpatient ISA VILLAFUERTE [facility] [id number] [facility] 2020-11-29 14:10:00 2020-11-29 14:10:00 Outpatient ISA VILLAFUERTE [facility] [id number] [facility] 2020-05-16 10:47:00 2020-05-16 23:59:00 Outpatient 3 Caleb Rubio [facility] [id number] [facility] 2020-05-16 10:47:00 2020-05-16 10:47:00 Outpatient 3 Caleb Rubio Caleb [facility] [id number] [facility] 2020-02-01 08:15:00 2020-02-01 08:15:00 Outpatient R NICK QUINTEROS [facility] [id number] [facility] 2020-02-01 07:41:50 2020-02-01 07:56:50 Telemedici ne Visit Lionelchristian [facility] [id number] [facility] 2019-07-27 10:45:00 2019-07-27 11:27:21 Outpatient R NICK QUINTEROS [facility] [id number] [facility] Results Test Description Test Time Test Comments Results Result Co mments Source [facility] [id number] 16:41:06 * Test Item Value Reference Range Interpretation Comme nts PSA (test code = 7898854187) 6.24 ng/mL See_Comment H [Automated message] The system which generated this result transmitted reference range: <=4.00. The reference range was not used to interpret this result as normal/abnormal. CINDY (test code = CINDY) Biotin has been reported to cause a negative bias, interpret results relative to patient's use of biotin. Lab Interpretation (test code = 93390-0) Abnormal [facility] [id number] 12:05:24* Test Item Value Reference Range Interpretation Comme [facility] Glucose POC (test code = Glucose POC) 68 mg/dL 70-115 L If you consi joni your patient critically ill, the Magdalena-Accu Check Infrom II meter should not be used for Glucose determination. Draw a venous Glucose and send to the main Lab for analysis.
--- NOTE | 2025-06-17 20:02 | EDPHYS ---
Physician Documentation [facility] Name: Qamar Campbell Age: 84 yrs Sex: Male : 1940 Arrival Date: 06/17/2025 Time: 19:30 Bed IW1 Private MD: ED Physician Elliott Braden HPI: 06/17 20:00 This 84 yrs old Male presents to ER via Ambulatory with complaints of Blood In Catheter.cp 20:00 The patient presents with a Ho catheter problem, draining bloody urine. Onset: The cp symptoms/episode began/occurred today. 20:00 Associated signs and symptoms: The patient has no apparent associated signs or cp symptoms. Patient reports ho catheter placed this morning at this ED for urine retention, noticed blood in urine this afternoon. Historical: - Allergies: 19:58 No Known Allergies; me1 - PMHx: 19:58 Diabetes - NIDDM; Hypertension; PROSTATE CA; me1 - Immunization history:: Adult Immunizations up to date. - Infectious Disease History:: Denies. - Social history:: Smoking status: Patient denies any tobacco usage or history of. ROS: 20:00 Eyes: Negative for injury, pain, redness, and discharge, cp 20:00 Constitutional: Negative for body aches, chills, fever, poor PO intake, 20:00 Cardiovascular: Negative for chest pain, 20:00 Respiratory: Negative for cough, shortness of breath, wheezing, 20:00 Abdomen/GI: Negative for abdominal pain, vomiting, diarrhea, constipation, 20:00 : Positive for hematuria, 20:00 Neuro: Negative for altered mental status, headache, weakness, 20:00 All other systems are negative, Exam: 20:00 Head/Face: Normocephalic, atraumatic. cp 20:00 Constitutional: The patient appears in no acute distress, alert, awake, comfortable, non-diaphoretic, non-toxic, well developed, well nourished, 20:00 Eyes: Periorbital structures: appear normal, Conjunctiva: normal, no exudate, no injection, Sclera: no appreciated abnormality, Lids and lashes: appear normal, bilaterally, 20:00 ENT: External ear(s): are unremarkable, Nose: is normal, Mouth: Lips: moist, Oral mucosa: moist, Posterior pharynx: Airway: no evidence of obstruction, patent, 20:00 Chest/axilla: Inspection: normal, 20:00 Cardiovascular: Rate: normal, 20:00 Respiratory: the patient does not display signs of respiratory distress, Respirations: normal, no use of accessory muscles, no retractions, labored breathing, is not present, Breath sounds: are clear throughout, no decreased breath sounds, no stridor, no wheezing, 20:00 Abdomen/GI: Inspection: abdomen appears normal, Palpation: abdomen is soft and non-tender, in all quadrants, 20:00 Neuro: Orientation: to person, place \T\ time. Mentation: is normal, Motor: moves all fours, strength is normal, Gait: is steady, Vital Signs: 19:55 BP 158 / 80; Pulse 89; Resp 17; Temp 98.3; Pulse Ox 97% ; Weight 68.04 kg; Height 5 ft. me1 8 in. ; Pain 0/10; 19:55 Body Mass Index 22.81 (68.04 kg, 172.72 cm) me1 19:55 Pain Scale: Adult me1 MDM: 20:00 Medical Screening Exam initiated cp 20:01 Data reviewed: vital signs, nurses notes, and as a result, I will discharge patient. cp Counseling: I had a detailed discussion with the patient and/or guardian regarding the historical points, exam findings, and any diagnostic results supporting the discharge/admit diagnosis, the need for outpatient follow up, a urologist, to return to the emergency department if symptoms worsen or persist or if there are any questions or concerns that arise at home. ED course: VSS. Reassurance. Discharge to home for continued monitoring. Administered Medications: No medications were administered Disposition: 06/18 19:26 Co-signature as Attending Physician, Elliott Braden MD I agree with the assessment sp4 and plan of care. I reviewed the patient's care provided by the Advanced Practice Provider and agree with the diagnosis and treatment plan. Disposition Summary: 06/17/25 20:01 Discharge Ordered Notes: Location: Home cp Problem: new cp Symptoms: have improved cp Condition: Stable cp Diagnosis - Hematuria, unspecified cp Followup: cp - With: Toribio Wang MD - When: 2 - 3 days - Reason: Recheck today's complaints Discharge Instructions: - Discharge Summary Sheet cp - Hematuria, Adult cp - Indwelling Urinary Catheter Insertion, Care After cp Forms: - Medication Reconciliation Form cp - Antibiotic Education cp - Prescription Opioid Use cp - Patient Portal Instructions cp - Leadership Thank You Letter cp Signatures: Christophe Mcdonnell PA-C PA-C cp Potepalov, Sergey, MD MD sp4 Aleta Horne RN RN me1
--- NOTE | 2025-06-17 20:02 | ER ---
Nurse's Notes [facility] Name: Qamar Campbell Age: 84 yrs Sex: Male : 1940 Arrival Date: 06/17/2025 Time: 19:30 Bed IW1 Private MD: Diagnosis: Hematuria, unspecified Presentation: 06/17 19:55 Chief complaint: Patient states: he got a catheter put in this morning for urinary me1 retention and then later noticed some bright red blood in the catheter bag that has since cleared up. No blood noted at this time and catheter is patent. Coronavirus screen: Vaccine status: Patient reports receiving the 2nd dose of the covid vaccine. Ebola Screen: No symptoms or risks identified at this time. Initial Sepsis Screen: Does the patient meet any 2 criteria? No. Patient's initial sepsis screen is negative. Does the patient have a suspected source of infection? No. Patient's initial sepsis screen is negative. Risk Assessment: Do you want to hurt yourself or someone else? Patient reports no desire to harm self or others. Onset of symptoms was June 17, 2025 at 11:00. 19:55 Method Of Arrival: [facility] [facility] 19:55 Acuity: ELISSA 4 me1 Triage Assessment: 19:58 General: Appears in no apparent distress. well groomed, well developed, well nourished, me1 Behavior is calm, cooperative, appropriate for age. Pain: Denies pain. EENT: No signs and/or symptoms were reported regarding the EENT system. Neuro: Level of Consciousness is awake, alert, obeys commands, Oriented to person, place, time, situation, Appropriate for age. Cardiovascular: Patient's skin is warm and dry. Respiratory: Airway is patent Respiratory effort is even, unlabored, Respiratory pattern is regular, symmetrical. GI: No signs and/or symptoms were reported involving the gastrointestinal system. : Ho in place to gravity drainage. Derm: Skin is intact, is healthy with good turgor, Skin is normal. Musculoskeletal: Circulation, motion, and sensation intact. Range of motion: intact in all extremities. Historical: - Allergies: 19:58 No Known Allergies; me1 - PMHx: 19:58 Diabetes - NIDDM; Hypertension; PROSTATE CA; me1 - Immunization history:: Adult Immunizations up to date. - Infectious Disease History:: Denies. - Social history:: Smoking status: Patient denies any tobacco usage or history of. Screenin:59 [facility] ED Fall Risk Assessment (Adult) History of falling in the last 3 months, me1 including since admission No falls in past 3 months (0 pts) Confusion or Disorientation No (0 pts) Intoxicated or Sedated No (0 pts) Impaired Gait No (0 pts) Mobility Assist Device Used No (0 pt) Altered Elimination No (0 pt) Score/Fall Risk Level 0 - 2 = Low Risk Maintained a safe environment, Provided non-skid footwear, Hourly rounding (assess needs \T\ fall precautionary measures) done. Abuse screen: Denies threats or abuse. Nutritional screening: No deficits noted. Tuberculosis screening: No symptoms or risk factors identified. Assessment: 19:59 General: See triage assessment. me1 Vital Signs: 19:55 BP 158 / 80; Pulse 89; Resp 17; Temp 98.3; Pulse Ox 97% ; Weight 68.04 kg; Height 5 ft. me1 8 in. ; Pain 0/10; 19:55 Body Mass Index 22.81 (68.04 kg, 172.72 cm) me1 19:55 Pain Scale: Adult me1 ED Course: 19:36 Patient arrived in ED. gm2 19:36 [facility]nell [facility] 19:36 Elliott Braden MD is Attending Physician. cp 19:58 Triage completed. me1 19:58 Arm band placed on Patient placed in an internal wait recliner. me1 19:59 Patient has correct armband on for positive identification. Provided Education on: me1 ho catheter care. 19:59 No provider procedures requiring assistance completed. Patient did not have IV access me1 during this emergency room visit. 20:00 Toribio Wang MD is Referral Physician. cp Administered Medications: No medications were administered Medication: 19:59 VIS not applicable for this client. me1 Outcome: 20:01 Discharge ordered by . cp 20:06 Discharged to home ambulatory, with family, me1 20:06 Condition: stable 20:06 Discharge instructions given to patient, family, Instructed on discharge instructions, follow up and referral plans. catheter care Demonstrated understanding of instructions, follow-up care, catheter care 20:06 Patient left the ED. me1 Signatures: Christophe Mcdonnell PA-C PA-C cp Eddleman, Michelle, RN RN me1 Tish Timmons [facility]
[2025-06-17 21:03] VITALS: BP 158/80; TEMP 98.3; O2SAT 97
== END 2025-06-17 20:06 | disposition home or self-care (01) ==
LOC: ER 19:30
DX: R31.9 Hematuria, unspecified (principal); Z85.46 Personal history of malignant neoplasm of prostate
CPT/HCPCS: 99282

== ENCOUNTER 2025-07-01 06:31 | Emergency (ER) | payer OTHER ==
[2025-07-01] MEDS ORDERED: LIDOCAINE VISCOUS 2% 10ML ORAL SOLN ONE (07:26)
--- NOTE | 2025-07-01 08:54 | ER ---
Nurse's Notes [facility] Name: Qamar Campbell Age: 84 yrs Sex: Male : 1940 Arrival Date: 07/01/2025 Time: 06:31 Bed 16 Private MD: Diagnosis: Dysuria;Mechanical complication of urinary (indwelling) catheter Presentation: 07/01 06:47 Chief complaint: EMS states: PT complaining of of urgency, irritation at the insertion ss12 site and pain of Jenkins catheter. Pt Jenkins catheter inserted approximately 12 days ago. Afebrile .Pt started having symptoms since Wednesday. Coronavirus screen: Client denies travel out of the [place] in the last 14 days. Ebola Screen: Patient negative for fever greater than or equal to 101.5 degrees Fahrenheit, and additional compatible Ebola Virus Disease symptoms Patient denies exposure to infectious person. Patient denies travel to an Ebola-affected area in the 21 days before illness onset. Initial Sepsis Screen: Does the patient meet any 2 criteria? No. Patient's initial sepsis screen is negative. Does the patient have a suspected source of infection? No. Patient's initial sepsis screen is negative. Risk Assessment: Do you want to hurt yourself or someone else? Patient reports no desire to harm self or others. Onset of symptoms was June 2025. 06:47 Method Of Arrival: EMS: [facility] 06:47 Acuity: ELISSA 3 ss12 Triage Assessment: 06:46 General: Appears in no apparent distress. comfortable, Behavior is calm, cooperative, ss12 quiet. Pain: Denies pain. EENT: No deficits noted. No signs and/or symptoms were reported regarding the EENT system. Neuro: Level of Consciousness is awake, alert, obeys commands, Oriented to person, place, time, situation. Cardiovascular: No deficits noted. Denies chest pain, Patient's skin is warm and dry. Respiratory: No deficits noted. Airway is patent Respiratory effort is even, unlabored, Respiratory pattern is regular, symmetrical. GI: No deficits noted. Abdomen is flat, non-distended. : small amount of concentrated urine noted in Jenkins leg bag. Derm: Skin is intact, Skin is dry, Skin is normal. Musculoskeletal: No deficits noted. No signs and/or symptoms reported regarding the musculoskeletal system. Historical: - Allergies: :04 No Known Allergies; ss12 - PMHx: 07:04 Diabetes - NIDDM; Hypertension; PROSTATE CA; ss12 - Immunization history:: Adult Immunizations unknown. - Infectious Disease History:: Denies. - Social history:: Smoking status: Patient denies any tobacco usage or history of. Screenin:[address] [facility] ED Fall Risk Assessment (Adult) History of falling in the last 3 months, ss12 including since admission No falls in past 3 months (0 pts) Confusion or Disorientation No (0 pts) Intoxicated or Sedated No (0 pts) Impaired Gait No (0 pts) Mobility Assist Device Used No (0 pt) Altered Elimination No (0 pt) Score/Fall Risk Level 0 - 2 = Low Risk Oriented to surroundings, Maintained a safe environment, Educated pt \T\ family on fall prevention, incl call for assistance when getting out of bed, Assessed \T\ reinforced patient's understanding of fall precautions, Provided non-skid footwear. Abuse screen: Denies threats or abuse. Denies injuries from another. Nutritional screening: No deficits noted. Tuberculosis screening: No symptoms or risk factors identified. Assessment: 06:46 Reassessment: see triage assessment. ss12 07:00 Reassessment: Pt noted sitting in chair. pet caregiver stated it seems like pt climbed ss12 over from the stretcher. When telegraphic typewriter operator check call beckman was still in stretcher and in reach of patient. Pt is alert and oriented x4. pt re educated about fall prevention. currently healthcare interpreter sitting with patient in chair at this time. caregiver reminded to let nursing staff know when leaving so pt could be closely monitored. 07:24 General: Appears in no apparent distress. Behavior is calm, cooperative. Pain: ap3 Complains of pain in head of penis Is intermittent. Neuro: Level of Consciousness is awake, alert, obeys commands, Oriented to person, place, time, situation, Appropriate for age. Cardiovascular: Patient's skin is warm and dry. Respiratory: Airway is patent Respiratory effort is even, unlabored, Respiratory pattern is regular, symmetrical. : Jenkins in place to gravity drainage. Vital Signs: 06:47 BP 143 / 70; Pulse 88; Resp 16; Temp 97.6; Pulse Ox 98% on R/A; ss12 07:06 Weight 77.11 kg; Height 5 ft. 5 in. ; ss12 09:20 BP 137 / 72; Pulse 78; Resp 17; Pulse Ox 99% on R/A; ap3 07:06 Body Mass Index 28.29 (77.11 kg, 165.1 cm) 12 ED Course: 06:46 Patient arrived in ED. ha1 06:51 Shaan Garduno, RN is Primary Nurse. ss12 07:00 Triage completed. ss12 07:07 Arm band placed on right wrist. ss12 07:07 Patient has correct armband on for positive identification. Provided Education on: plan ss12 of care. 07:07 No provider procedures requiring assistance completed. ss12 07:14 Christophe Irby MD is Attending Physician. [facility] 07:41 Jenkins cath balloon deflated, catheter removed. balloon only had 2 ml's of water in, ap3 when deflated. patient tolerated well. 08:51 Toribio Wang MD is Referral Physician. [facility] 09:16 UA Rfx Kurt Cult if indicated Sent. ap3 09:16 Patient did not have IV access during this emergency room visit. ap3 Administered Medications: 07:41 CANCELLED (Physician Discretion): ns 0.9% 500 ml IV at bolus once; to be given as a ap3 bolus over 30 minutes Medication: 07:07 VIS not applicable for this client. 12 Outcome: 08:53 Discharge ordered by . landon 09:16 Condition: good ap3 09:19 Discharged to home ambulatory, with friend, ap3 09:19 Discharge instructions given to patient, insole lip turner, Instructed on discharge instructions, follow up and referral plans. medication usage, Demonstrated understanding of instructions, follow-up care, medications, Prescriptions given X 4, 09:21 Patient left the ED. ap3 Signatures: Christophe Irby MD MD cha Prokisch, Amanda RN RN ap3 Destinee Montalvo RN RN 1 Shaan Garduno RN RN [facility]
--- NOTE | 2025-07-01 08:54 | EDPHYS ---
Physician Documentation [facility] Name: Qamar Campbell Age: 84 yrs Sex: Male : 1940 Arrival Date: 07/01/2025 Time: 06:31 Bed 16 Private MD: ED Physician Christophe Irby HPI: 07/01 08:46 This 84 yrs old Male presents to ER via EMS with complaints of Urinary landon Problem, Problem With Urinary Catheter. 08:46 The patient presents with a Ho catheter problem, swelling, that is mild, tenderness. landon Modifying factors: The symptoms are alleviated by remaining still, the symptoms are aggravated by nothing. Associated signs and symptoms: The patient has no apparent associated signs or symptoms. Severity of symptoms: At their worst the symptoms were moderate, in the emergency department the symptoms are unchanged. The patient has not experienced similar symptoms in the past. Historical: - Allergies: 07:04 No Known Allergies; ss12 - PMHx: 07:04 Diabetes - NIDDM; Hypertension; PROSTATE CA; ss12 - Immunization history:: Adult Immunizations unknown. - Infectious Disease History:: Denies. - Social history:: Smoking status: Patient denies any tobacco usage or history of. ROS: 08:47 Constitutional: Negative for fever, chills, and weight loss, Eyes: Negative for injury, landon pain, redness, and discharge, ENT: Negative for injury, pain, and discharge, Neck: Negative for injury, pain, and swelling, Cardiovascular: Negative for chest pain, palpitations, and edema, Respiratory: Negative for shortness of breath, cough, wheezing, and pleuritic chest pain, Abdomen/GI: Negative for abdominal pain, nausea, vomiting, diarrhea, and constipation, Back: Negative for injury and pain, MS/Extremity: Negative for injury and deformity, Skin: Negative for injury, rash, and discoloration, Neuro: Negative for headache, weakness, numbness, tingling, and seizure, Psych: Negative for depression, anxiety, suicide ideation, homicidal ideation, and hallucinations, Allergy/Immunology: Negative for hives, rash, and allergies, Endocrine: Negative for neck swelling, polydipsia, polyuria, polyphagia, and marked weight changes, Hematologic/Lymphatic: Negative for swollen nodes, abnormal bleeding, and unusual bruising, 08:47 : Positive for urinary symptoms, difficulty urinating, ho pain to penis tip, Exam: 08:47 Constitutional: This is a well developed, well nourished patient who is awake, alert, landon and in no acute distress. Head/Face: Normocephalic, atraumatic. Eyes: Pupils equal round and reactive to light, extra-ocular motions intact. Lids and lashes normal. Conjunctiva and sclera are non-icteric and not injected. Cornea within normal limits. Periorbital areas with no swelling, redness, or edema. ENT: Nares patent. No nasal discharge, no septal abnormalities noted. Tympanic membranes are normal and external auditory canals are clear. Oropharynx with no redness, swelling, or masses, exudates, or evidence of obstruction, uvula midline. Mucous membranes moist. Neck: Trachea midline, no thyromegaly or masses palpated, and no cervical lymphadenopathy. Supple, full range of motion without nuchal rigidity, or vertebral point tenderness. No Meningismus. Chest/axilla: Normal chest wall appearance and motion. Nontender with no deformity. No lesions are appreciated. Cardiovascular: Regular rate and rhythm with a normal S1 and S2. No gallops, murmurs, or rubs. Normal PMI, no JVD. No pulse deficits. Respiratory: Lungs have equal breath sounds bilaterally, clear to auscultation and percussion. No rales, rhonchi or wheezes noted. No increased work of breathing, no retractions or nasal flaring. Abdomen/GI: Soft, non-tender, with normal bowel sounds. No distension or tympany. No guarding or rebound. No evidence of tenderness throughout. Back: No spinal tenderness. No costovertebral tenderness. Full range of motion. Skin: Warm, dry with normal turgor. Normal color with no rashes, no lesions, and no evidence of cellulitis. MS/ Extremity: Pulses equal, no cyanosis. Neurovascular intact. Full, normal range of motion., bilateral aka Neuro: Awake and alert, GCS 15, oriented to person, place, time, and situation. Cranial nerves II-XII grossly intact. Motor strength 5/5 in all extremities. Sensory grossly intact. Cerebellar exam normal. Normal gait. Psych: Awake, alert, with orientation to person, place and time. Behavior, mood, and affect are within normal limits. 08:47 : CVA tenderness, is absent, Male external genitalia: erythema, of the meatus is seen, Bladder: is normal, Sexual behavior: the patient is not sexually active, Vital Signs: 06:47 BP 143 / 70; Pulse 88; Resp 16; Temp 97.6; Pulse Ox 98% on R/A; ss12 07:06 Weight 77.11 kg; Height 5 ft. 5 in. ; ss12 09:20 BP 137 / 72; Pulse 78; Resp 17; Pulse Ox 99% on R/A; ap3 07:06 Body Mass Index 28.29 (77.11 kg, 165.1 cm) 12 MDM: 07:14 Medical Screening Exam initiated landon 08:49 Differential diagnosis: UTI, urinary retention, Ho catheter problem, prostatitis, landon urethritis. Data reviewed: vital signs, nurses notes, lab test result(s), urinalysis. Consideration of Admission/Observation Escalation of care including admission/observation considered. I considered the following discharge prescriptions or medication management in the emergency department Medications were administered in the Emergency Department. See MAR. Test considered but Not performed: Labs: no ct stone , no cbc , no cmp. Historians other than the Patient: Spouse/Significant Other: well informed. Care significantly affected by the following chronic conditions: Diabetes, Hypertension, Cancer. 08:50 ED course: pt and his request to remove ho , see campbell in the am. [facility] 07/01 07:17 Order name: UA Rfx Kurt Cult if indicated landon Administered Medications: 07:41 CANCELLED (Physician Discretion): ns 0.9% 500 ml IV at bolus once; to be given as a ap3 bolus over 30 minutes Disposition Summary: 07/01/25 08:53 Discharge Ordered Notes: Location: Home landon Problem: new landon Symptoms: have improved landon Condition: Stable landon Diagnosis - Dysuria landon - Mechanical complication of urinary (indwelling) catheter landon Followup: landon - With: Private Physician - When: 2 - 3 days - Reason: Recheck today's complaints, Continuance of care, Re-evaluation by your physician Followup: landon - With: Toribio Wang MD - When: Tomorrow - Reason: Recheck today's complaints, Continuance of care, Re-evaluation by your physician Discharge Instructions: - Discharge Summary Sheet landon - Abrasion landon - Dysuria landon - Abrasion, [id number] landon - Indwelling Urinary Catheter Removal at Home, Male [facility] Forms: - Medication Reconciliation Form [facility] - Antibiotic Education landon - Prescription Opioid Use landon - Patient Portal Instructions [facility] - Leadership Thank You Letter [facility] Prescriptions: - Centany 2 % Topical ointment - apply 1 application TOPICAL route 3 times per day to glans/head of penis; 15 landon gram; Refills: 0, Product Selection Permitted - Flomax 0.4 mg Oral capsule - take 1 capsule ORAL route 2 times per day; 60 capsule; Refills: 0, Product [facility] Selection Permitted - Pyridium 200 mg Oral Tablet - take 1 tablet ORAL route every 8 hours for 3 days; 9 tablet; Refills: 0, [facility] Product Selection Permitted - Bactrim DS 800-160 mg Oral Tablet - take 1 tablet ORAL route every 12 hours for 7 days; 14 tablet; Refills: 0, [facility] Product Selection Permitted Signatures: Dispatcher [employer] Christophe Lozano MD MD cha Shamaila, Shamaila, RN RN ss12 Deidra Guerrero RN ap3 Corrections: (The following items were deleted from the chart) 07:41 07:17 NS 0.9% IV 500 ml IV at bolus once; to be given as a bolus over 30 minutes ap3 ordered. [facility] 08:36 07:17 Stone Protocol+CT.RAD.BRZ ordered. EDMS EDMS
[2025-07-01 09:48] LABS: Sqamous Epithelial <5 /HPF (None Seen); Urine Crystals Unidentified Few /HPF (None Seen); Urine Culture Reflex Order REFLEXED; Urine Microscopic Reflex YN ORDER UMIC; Urine WBC Clump Occasional /HPF (None Seen); Urine Yeast (Budding) Occasional /HPF (None Seen)
[2025-07-01 12:31] VITALS: TEMP 97.6
[2025-07-01 12:33] VITALS: BP 137/72; O2SAT 99
== END 2025-07-01 09:21 | disposition home or self-care (01) ==
LOC: ER 06:31
DX: R30.0 Dysuria (principal); T83.098A Other mechanical complication of other urinary catheter, initial encounter; Z85.46 Personal history of malignant neoplasm of prostate
CPT/HCPCS: 81001; 87077; 87086; 87088; 87186; 99283